=== PATIENT | female | born 1945 | race Caucasian/White ===

== ENCOUNTER 2020-04-21 10:03 | Emergency (ER) | payer MEDICARE, SELFPAY ==
[2020-04-21 10:30] VITALS: BP 173/81; PULSE 88; RESP 18; TEMP 36.5; O2SAT 95; BMI 37.2
--- NOTE | 2020-04-21 10:40 | XR_ITS ---
WS: [id number] Exam: XR hip LT 2-3V wo/w pel* [id number] Date/Time of Exam: 04/21/2020 10:40 AM Reason For Exam: hip pain s/p fall No acute fracture or dislocation. Mild degenerative change of the joint compartment. Normal soft tiss ues. XR/XR hip LT 2-3V wo/w pel* [id number] IMPRESSION: 1. No acute fracture or dislocation.
--- NOTE | 2020-04-21 10:40 | XR_ITS ---
WS: [id number] Exam: XR knee LT 3V* [id number] Date/Time of Exam: 04/21/2020 10:40 AM Reason For Exam: fall knee pain No acute fracture or dislocation. 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 Effusion in the suprapatellar bursa. XR/XR knee LT 3V* [id number] IMPRESSION: 1. No fracture or dislocation. 2. Moderately advanced DJD and large volume joint effusion.
--- NOTE | 2020-04-21 10:40 | XR_ITS ---
WS: [id number] Exam: XR ankle LT min 3V* [id number] Date/Time of Exam: 04/21/2020 10:40 AM Reason For Exam: left ankle pain s/p fall No acute fracture or dislocation. Degenerative change of the ankle mortise. Normal soft tissues. XR/XR ankle LT min 3V* [id number] IMPRESSION: 1. No acute fracture or dislocation. Degenerative changes.
--- NOTE | 2020-04-21 10:51 | ED_ITS ---
HPI - Extremity Problem General: Chief complaint: Extremity Injury, Lower Stated complaint: Left leg injury, Fall Time Seen by Provider: 04/21/20 10:33 Source: patient and family Mode of arrival: ambulatory Limitations: no limitations History of Present Illness: HPI Narrative: 75-year-old female patient presents to the emergency department via private auto, she reports was making the bed last night around 11 PM, states her left knee went out from under her she fell landing on her left knee in a bent position. States unable to bear weight on the left lower extremity, states pain is located in the left knee and left hip. She also reports pain in the left ankle. She denies headache or neck pain, did not hit her head or sustain other injuries. States was able to get back in bed with the assistance of her spouse. Of note patient reports low white blood count, recently relocated to the area from [place]. She reports her primary care provider completed work-up for h er decreased white blood count. She reports he could never find anything with the exception of urinary tract infection which was treated. MD Complaint: extremity pain Onset (ago): hour(s) (12) Pain Consistency: constant Location: left and lower extremity Severity scale (1-10): 6 Quality: aching and dull Radiation: proximal and distal Relieving factors: rest Exacerbating factors: range of motion, weight bearing and walking Associated symptoms: Reports no associated symptoms; Deny chest pain, fever(s) or rash Review of Systems General: Reports: 10 or more systems reviewed and unremarkable except in HPI and below Const: Denies: fever(s), chills or diaphoresis Eyes: Denies: blurry vision or eye redness ENMT: Denies: throat pain, dental pain or disequilibrium Card: Denies: chest pain, palpitations or irregular heart rhythm Resp: Denies: dyspnea, productive cough, non-productive cough or wheezing GI: Denies: abdominal pain, nausea or vomiting : Denies: difficulty voiding or dysuria Musc: Reports: extremity pain and joint pain; Denies: neck pain, back pain, muscle cramps or muscle weakness Skin/Breast: Denies: rash or pruritus Neuro: Denies: headache(s), weakness in extremities or behavioral changes Psych: Denies: anxiety or depression Eddie/Lymph: Denies: easy bruising PFS ED PFSH: Medical History (Updated 04/21/20 @ 16:00 by LORI Mcmahan Anxiety Diabetes HTN (hypertension) Leukopenia Physical Exam Const: COMMON NORMALS: no acute distress, average body habitus, patient oriented x3, healthy appearing, alert and well nourished EXAM LIMITATIONS: no altered mental status, no behavioral limitations and no physical limitations GENERAL APPEARANCE: cooperative, well kempt, well developed and well hydrated; not comfortable, not anxious and not ill appearing NUTRITIONAL APPEARANCE: obese ORIENTATION/CONSCIOUSNESS: Yes awake, Yes oriented to person, Yes oriented to place and Yes oriented to time HENMT: COMMON NORMALS: normocephalic, atraumatic, EAC's normal, TM's normal bilaterally, Normal external nose present and moist oral mucous membranes HEAD & SCALP: normal to inspection, normocephalic and atraumatic FACE & SINUS: normal facial exam and face symmetric NOSE: Normal external nose present and No nasal polyps present EXTERNAL AUDITORY CANAL: EAC's normal TYMPANIC MEMBRANE: TM's normal bilaterally MOUTH: Normal oral and palatal mucosa present, lip normal and tongue normal THROAT: posterior oropharynx normal Eye: COMMON NORMALS: Equal, round and reactive pupils present and EOMs intact bilaterally GENERAL EYE: appearance normal, both eyes and all related structu res PUPIL: Yes Equal, round and reactive pupils present Neck/C-Spine: COMMON NORMALS: full ROM and no lymphadenopathy GENERAL: Yes normal visual inspection and Yes trachea midline CERVICAL SPINE: Yes cervical ROM normal Lymph: LYMPHATIC: no lymphadenopathy noted Chest: COMMONS NORMALS: normal inspection of the chest and normal palpation of entire chest wall Resp: COMMON NORMALS: normal respiratory effort, No retractions, No use of accessory muscles and clear to auscultation bilaterally EFFORT & INSPECTION: Yes able to speak in complete sentences AUSCULTATION: clear to auscultation bilaterally Cardio: COMMON NORMALS: regular rhythm, S1 normal heart sound present, S2 n ormal heart sound present and Peripheral pulses 2+ throughout RHYTHM: regular rhythm HEART SOUNDS: S1 normal heart sound present and S2 normal heart sound present PERIPHERAL PULSES: Peripheral pulses 2+ throughout GI: COMMON NORMALS: Normal to inspection, nondistended, normoactive bowel sounds present, Soft to palpation and non-tender INSPECTION: Yes normal to inspection, No abdominal distension and Yes central obesity PALPATION: Yes Soft to palpation : COMMON NORMALS: Yes no CVA tenderness BLADDER/KIDNEY EXAM: Yes no CVA tenderness Back/Pelvis: COMMON NORMALS: no CVA tenderness, thoracic and lumbar spine normal to inspection, no thoracic nor lumbar tenderness and thoraco-lumbar ROM normal Extremity: COMMON NORMALS: normal to inspection and capillary refill normal GENERAL: Yes normal exam except as noted LEFT LOWER EXTREMITY: Yes hip joint Left hip: Yes inspection (Normal inspection), Yes palpation (Pain posterior anterior/lateral, pain with rotation, passive) and Yes neurovascular exam (Distally intact), Yes knee joint Left knee: Yes inspection (Edema noted, ecchymosis noted anterior lateral), Yes palpation (Pain with palpation), Yes ROM (Range of motion limited secondary to pain unable to flex or extend), Yes neurovascular exam (Distally intact) and Yes other (Knee is comfortable in a fl exed position.), Yes lower leg and Yes ankle joint Left ankle: Yes inspection (Slight edema noted laterally), Yes palpation (Pain laterally), Yes ROM (Limited flexion extension secondary to pain reproduced laterally) and Yes neurovascular exam (Distally intact) Neuro: COMMON NORMALS: patient oriented x3 and no focal motor deficits SENSORIUM/ORIENTATION: Yes alert, Yes oriented to person, Yes oriented to place and Yes oriented to time Psych: COMMON NORMALS: mental status grossly normal, Normal thought process present and cooperative APPEARANCE: Yes well kempt ACTIVITY/MOTOR BEHAVIOR: Yes appropriate eye contact THOUGHT PROCESS: Normal thought process present Skin: COMMON NORMALS: no rashes or lesions noted and turgor normal GENERAL SKIN EXAM: no rashes or lesions noted and turgor normal Course Vital Signs: Vital signs: Vital Signs Temperature 97.7 F 04/21/20 10:30 Pulse Rate 80 04/21/20 17:15 Respiratory Rate 16 04/21/20 17:15 Blood Pressure 177/78 04/21/20 17:15 Pulse Oximetry 95 04/21/20 17:15 MDM - Extremity (Nontraumatic) MDM Narrative: Medical decision making narrative: 75-year-old female patient presents to the emergency department with left knee pain and hip pain after sustaining a fall last p.m. at home. She is found to be leukopenic with neutropenia, previous history of this with work-up from her primary care physician in [place]. Recently moved to the area, has not established primary care provider at this time. Referral was placed to secondary social studies teacher for need for hematology and orthopedic follow-up. CT scan completed of the left knee and left hip due to patient's inability to stand. Physical therapy did come and evaluate the patient here in the ED was able to get the patient to ambulate with assistance of a walker. She will be referred to orthopedic services. Prescription for walker sent to HOME services with [facility]. Her son remained at bedside and is aware that leukopenia will cause increased risk for infection, advised to avoid contact with ill individuals. Verbalized understanding and agrees for hematology follow-up as well as orthopedic services. Dr. Bernardo was available for discussion of case with recommendation for hydrocodone. Lab Data: Labs: Lab Results 04/21/20 04/21/20 Range/Units 11:15 11:15 WBC 1.9 L (4.0-10.0) 10^3/ uL RBC 3.65 L (4.1-5.3) 10^6/u L Hgb 11.0 L (11.5-15.3) g/dL Hct 34.1 L (37.0-47.0) % MCV 93.4 (81-99) fL MCH 30.1 (28.0-34.0) pg MCHC 32.3 (30.0-36.0) g/dL RDW 17.3 H (12.1-15.1) % Plt Count 64 L (130-400) 10^3/c mm MPV 11.1 H (7.4-10.4) fL Neut % (Auto) 13.4 % Lymph % (Auto) 73.7 % [place] % (Auto) 11.8 % Eos % (Auto) 0.0 % Baso % (Auto) 0.0 % Neut # (Auto) 0.25 L* (1.8-7.7) 10^3/u L Lymph # (Auto) 1.4 (0.8-4.8) 10^3/u L [place] # (Auto) 0.2 (0.2-0.9) 10^3/u L Eos # (Auto) 0.0 (0.0-0.8) 10^3/u L Baso # (Auto) 0.0 (0.0-0.1) 10^3/u L Nucleated RBC % (a uto) 0 % Nucleated RBCs # 0.0 /100WBC Sodium 140 (136-145) mmol/L Potassium 4.0 (3.5-5.1) mmol/L Chloride 102 (98-107) mmol/L Carbon Dioxide 25 (22-29) mmol/L Anion Gap 17.0 (5-19) BUN 14 (8-23) mg/dL Creatinine 0.9 (0.5-0.9) mg/dL GFR Calculation Not Reportable Glucose 94 (65-115) mg/dL Calculated Osmolal ity 290 (285-295) mOsm/k g Calcium 9.4 (8.5-10.5) mg/dL Total Bilirubin 0.3 (0.15-1.2) mg/dL AST 21 (0-32) U/L ALT 15 (0-33) U/L Alkaline Phosphata se 91 (35-105) IU/L Total Protein 7.4 (6.6-8.7) g/dL Albumin 4.7 (3.5-5.2) g/dL Globulin 2.7 (1.3-4.6) g/dL Imaging Data^: Xray Ortho: Radiologist's impression: [address] [address] XRay Report Signed Patient: Susana Lucio Unit #: [id number] : 1945 Age/Sex: 75 / F ADM Date: 04/21/20 Loc: ER Room/Bed: Attending Dr: Ordering Provider/Ordering MD: Tiara Sanchez Date of Service: 04/21/20 Procedure(s): XR ankle LT min 3V* [id number] Accession Number(s): [id number] Report Number: [id number] WS: [id number] Exam: XR ankle LT min 3V* [id number] Date/Time of Exam: 04/21/2020 10:40 AM Reason For Exam: left ankle pain s/p fall No acute fracture or dislocation. Degenerative change of the ankle mortise. Normal soft tissues. XR/XR ankle LT min 3V* [id number] IMPRESSION: 1. No acute fracture or dislocation. Degenerative changes. Dictated By: Jarrett Meza DO Signed By: Jarrett Meza DO Signed Date/Time: 04/21/20 1113 DD/ 1113 Other Xray: Radiologist's impression: [place] [address] XRay Report Signed Patient: Susana Lucio Unit #: [id number] : 1945 Age/Sex: 75 / F ADM Date: 04/21/20 Loc: ER Room/Bed: Attending Dr: Ordering Provider/Ordering MD: Tiara Sanchez Date of Service: 04/21/20 Procedure(s): XR hip LT 2-3V wo/w pel* [id number] Accession Number(s): [id number] Report Number: [id number] WS: [id number] Exam: XR hip LT 2-3V wo/w pel* [id number] Date/Time of Exam: 04/21/2020 10:40 AM Reason For Exam: hip pain s/p fall No acute fracture or dislocation. Mild degenerative change of the joint compartment. Normal soft tissues. XR/XR hip LT 2-3V wo/w pel* [id number] IMPRESSION: 1. No acute fracture or dislocation. Dictated By: Jarrett Meza DO Signed By: Jarrett Meza DO Signed Date/Time: 04/21/20 1114 DD/ 1114 Other Imaging: Radiologist's impression: [facility] [address] [address] XRay Report Signed Patient: Susana Lucio Unit #: [id number] : 1945 Age/Sex: 75 / F ADM Date: 04/21/20 Loc: ER Room/Bed: Attending Dr: Ordering Provider/Ordering MD: Tiara Sanchez Date of Service: 04/21/20 Procedure(s): XR knee LT 3V* [id number] Accession Number(s): [id number] Report Number: [id number] WS: [id number] Exam: XR knee LT 3V* [id number] Date/Time of Exam: 04/21/2020 10:40 AM Reason For Exam: fall knee pain No acute fracture or dislocation. 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 Effusion in the suprapatellar bursa. XR/XR knee LT 3V* 28094 IMPRESSION: 1. No fracture or dislocation. 2. Moderately advanced DJD and large volume joint effusion. Dictated By: Jarrett Meza DO Signed By: Jarrett Meza DO Signed Date/Time: 04/21/201114 DD/ 13 Discharge Plan Discharge Patient Disposition: Home Clinical Impression: Contusion of hip Qualifiers: Encounter type: initial encounter Laterality: left Qualified Code(s): S70.02XA - Contusion of left hip, initial encounter Contusion of knee, left Qualifiers: Encounter type: initial encounter Qualified Code(s): S80.02XA - Contusion of left knee, initial encounter Fall Qualifiers: Encounter type: initial encounter Qualified Code(s): W19.XXXA - Unspecified fall, initial encounter Leukopenia Qualifiers: Leukopenia type: neutropenia Neutropenia type: unspecified Qualified Code(s): D70.9 - Neutropenia, unspecified Condition: Stable Prescriptions: New hydrocodone-acetaminophen 5-325 mg tablet 1 tab PO Q4H PRN (Reason: pain) Qty: 10 RF: 0 No Action losartan 50 mg Tablet 100 mg PO DAILY@1000 RF: 0 isosorbide mononitrate 60 mg Tablet Extended Release 24 Hr 60 mg PO DAILY@1000 RF: 0 pantoprazole 40 mg Tablet,Delayed Release (Dr/Ec) 40 mg PO DAILY@1000 RF: 0 gabapentin 300 mg Capsule 300 mg PO TID@10,14,19 RF: 0 fluoxetine 20 mg Capsule 40 mg PO DAILY RF: 0 cyclobenzaprine 10 mg Tablet 10 mg PO BID PRN (Reason: muscle spasms) RF: 0 metformin 500 mg Tablet 500 mg PO BID@1000,1900 RF: 0 tramadol 50 mg Tablet 50 mg PO BID PRN (Reason: Pain) RF: 0 diltiazem HCl 120 mg Tablet 240 mg PO DAILY@1900 RF: 0 lorazepam 1 mg Tablet 1 mg PO DAILY PRN (Reason: unknown) RF: 0 Discharge Orders: Discharge ED (Routine); Ordered 04/21/20 Ordered By: Tiara Sanchez Discharge Diet: Usual diet Discharge Activity: Limit activity as instructed Patient Instructions: How to Choose and Use a Walker (GEN), Hip Sprain (ED), Knee Pain (ED), Neutropenia (ED), Leg Sprain (ED), Knee Immobilizer (ED) Activity Restrictions/Additional Instructions: client services representative will be contacting you with an appointment with hematology due to low white blood count that was found on today's visit. You will need to stay isolated, stay away from ill individuals Return to the emergency department if you develop fever, shortness of breath or other concerning symptoms Utilize a walker and wheelchair as needed for knee and hip pain. 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
[2020-04-21] MEDS: promethazine 25 mg Tablet PO (11:21)
[2020-04-21 11:22] VITALS: RESP 18; O2SAT 96
[2020-04-21] MEDS: morphine 4 mg/mL SDV 1 mL IVP ×2 (11:22→12:19)
[2020-04-21 11:25] LABS: Hematocrit 34.1 % (37.0-47.0); Lymphocytes # 1.4 10^3/uL (0.8-4.8); Lymphocytes % 73.7 %; Mean Corpuscular HGB Conc 32.3 g/dL (30.0-36.0); Mean Corpuscular Hemoglobin 30.1 pg (28.0-34.0); Mean Corpuscular Volume 93.4 fL (81-99); Mean Platelet Volume 11.1 fL (7.4-10.4); Monocytes # 0.2 10^3/uL (0.2-0.9); Monocytes % 11.8 %; Neutrophils % 13.4 %; Nucleated Red Blood Cells % 0 %; Platelet Count 64 10^3/cmm (130-400); Positive C 1; Positive M 1; Red Blood Count 3.65 10^6/uL (4.1-5.3); Red Cell Distribution Width 17.3 % (12.1-15.1); White Blood Count 1.9 10^3/uL (4.0-10.0)
[2020-04-21 12:02] LABS: Alanine Aminotransferase 15 U/L (0-33); Albumin Level 4.7 g/dL (3.5-5.2); Alkaline Phosphatase 91 IU/L (35-105); Aspartate Amino Transferase 21 U/L (0-32); Blood Urea Nitrogen 14 mg/dL (8-23); Calcium 9.4 mg/dL (8.5-10.5); Carbon Dioxide 25 mmol/L (22-29); Chloride 102 mmol/L (98-107); Creatinine Clr Calc Pharmacy 68.4184; Globulin 2.7 g/dL (1.3-4.6); Glucose 94 mg/dL (65-115); Osmolality Calculated 290 mOsm/kg (285-295); Sodium 140 mmol/L (136-145); Total Bilirubin 0.3 mg/dL (0.15-1.2); Total Protein 7.4 g/dL (6.6-8.7)
--- NOTE | 2020-04-21 12:10 | CT_ITS ---
WS: [id number] CT LEFT HIP, NONCONTRAST HISTORY: hip pain s/p fall Technique: All CT scans at [facility] use at least one of these dose optimization techniq ues: automated exposure control; mA and/or kV adjustment per patient size (includes targeted exams wh ere dose is matched to clinical indication); or iterative reconstruction. DLP: 2018.82 mGy.cm COMPARISON: Radiographs 04/21/2020. No LEFT hip fracture is identified. No displacement or dislocation. Mild degenerative changes at the hip joint. Hypertrophic bone formation involving the acetabulum and greater trochanter. There is soft tissue injury and edema posterior to the hip. No soft tissue hematoma. Visualized pubic rami are int act. CT/CT hip LT wo con* 72863 IMPRESSION: No LEFT hip fracture.
--- NOTE | 2020-04-21 12:10 | CT_ITS ---
WS: [id number] CT LEFT KNEE NONCONTRAST. HISTORY: knee pain s/p fall Technique: All CT scans at [facility] use at least one of these dose optimization techniq ues: automated exposure control; mA and/or kV adjustment per patient size (includes targeted exams wh ere dose is matched to clinical indication); or iterative reconstruction. DLP: 732.51 mGy.cm COMPARISON: 04/21/2020 No acute fractures or dislocation. Moderate degenerative changes in the medial compartment. There is loss of normal joint space with sclerosis and osteophytosis. Osteophytes in all 3 compartments. No de finite fractures are identified. There is a large suprapatellar joint effusion CT/CT knee LT wo con* 48073 IMPRESSION: 1. Large suprapatellar joint effusion. 2. No acute fracture identified. 3. Moderate degenerative changes medial compartment.
[2020-04-21 12:13] LABS: Neutrophils # 0.25 10^3/uL (1.8-7.7)
[2020-04-21 12:19] VITALS: RESP 18; O2SAT 96
[2020-04-21] MEDS: alum-mag-hydroxide-sime 30 mL UDC PO (13:19)
[2020-04-21] MEDS: HYDROcodone-acetaminophen 5-325 mg Tablet 1 TAB PO (14:45)
[2020-04-21 14:47] VITALS: BP 186/80; PULSE 88; RESP 18; O2SAT 95
[2020-04-21] MEDS: famotidine 20 mg Tablet 40 MG PO (15:50)
[2020-04-21 17:15] VITALS: BP 177/78; PULSE 80; RESP 16; O2SAT 95
--- NOTE | 2020-04-22 09:32 | DCPLANNER ---
regional safety manager had message to schedule a follow up appointment for patient with ortho. regional safety manager called the ortho clinic, spoke with Kellen, gave clinic patients information. regional safety manager was told that patients information would be printed and reviewed. Clinic will call patient with appointment information. regional safety manager had message to refer patient to hematology, human services case manager called the facility coordinator, Avani Wilhelm, gave clinic patients information. regional safety manager was told that patients information would be printed and reviewed. Clinic will call patient with appointment information.
--- NOTE | 2020-04-25 11:08 | DCPLANNER ---
Patient has a follow up appointment scheduled for Tuesday, April 28, 2020 at 9:[address] Del Rosario. Clinic will call patient with appointment information.
--- NOTE | 2020-05-13 08:06 | DCPLANNER ---
Patient had a follow up appointment scheduled for Tuesday, April 28, [address] Del Rosario at [facility] - patient did attend appointment. assistant production manager also referred patient to the cancer treatment center, spoke with Avani, custom studio coordinator. assistant production manager was told that the clinic is trying to reach patient, has spoke with and left message for patient to return phone call. Patient has not called Avani back, she stated that she will keep trying to reach patient.
== END 2020-04-21 17:15 | disposition home or self-care (01) ==
PROVIDERS: Emergency Provider Nurse Practitioner Family
DX: S80.02XA Contusion of left knee, initial encounter (principal); S70.02XA Contusion of left hip, initial encounter; D70.9 Neutropenia, unspecified; Z79.84 Long term (current) use of oral hypoglycemic drugs; E11.9 Type 2 diabetes mellitus without complications; I10 Essential (primary) hypertension; W19.XXXA Unspecified fall, initial encounter
CPT/HCPCS: 12345; 29530; 73502; 73562; 73610; 73700; 80053; 85025; 97116; 97161; 99283; 99284; J2270; Q0169

== ENCOUNTER 2020-05-14 10:38 | Outpatient (CLI) | payer MEDICARE, SELFPAY ==
[2020-05-14 13:05] LABS: Basophils % 0.4 %; Hematocrit 27.9 % (37.0-47.0); Hemoglobin 8.9 g/dL (11.5-15.3); Lymphocytes # 1.1 10^3/uL (0.8-4.8); Lymphocytes % 46.3 %; Mean Corpuscular HGB Conc 31.9 g/dL (30.0-36.0); Mean Corpuscular Hemoglobin 30.5 pg (28.0-34.0); Mean Corpuscular Volume 95.5 fL (81-99); Monocytes # 1.1 10^3/uL (0.2-0.9); Monocytes % 44.2 %; Neutrophils % 8.7 %; Nucleated Red Blood Cells % 0 %; Platelet Count 44 10^3/cmm (130-400); Red Blood Count 2.92 10^6/uL (4.1-5.3); Red Cell Distribution Width 18.6 % (12.1-15.1); White Blood Count 2.4 10^3/uL (4.0-10.0)
[2020-05-14 13:14] LABS: LAB Peripheral Smear Sent for Review
[2020-05-14 13:22] LABS: Add Urine Culture? Yes; Add Urine Microscopic? YES; Bacteria Urine 2+ /hpf; Bilirubin Urine Neg (Negative); Blood Urine 2+ (Negative); Glucose Urine UA Norm (Normal); Ketones Urine Negative (Negative); Leukocyte Esterase Urine Negative (Negative); Nitrate Urine Negative (Negative); Protein Urine Trace (Negative); RBC Urine 0-4 /hpf (0-2); Squamous Epithelial Cell Urine 0-4 /hpf (0-5); Urine Appearance Clear (CLEAR); Urine Color Yellow (Yellow); Urobilinogen Urine Norm (Negative); pH Urine 5 (5-7)
[2020-05-14 13:31] LABS: Estmated Average Glucose 114; Hemoglobin A1C 5.6 % (4.0-6.0)
[2020-05-14 13:33] LABS: Neutrophils # 0.21 10^3/uL (1.8-7.7)
[2020-05-14 13:53] LABS: Erythrocyte Sedimentation Rate 19 mm/hr (0-15)
[2020-05-14 15:17] LABS: Alanine Aminotransferase 20 U/L (0-33); Albumin Level 3.7 g/dL (3.5-5.2); Alkaline Phosphatase 71 IU/L (35-105); Anion Gap 14.9 (5-19); Aspartate Amino Transferase 23 U/L (0-32); Blood Urea Nitrogen 16 mg/dL (8-23); Calcium 9.1 mg/dL (8.5-10.5); Carbon Dioxide 25 mmol/L (22-29); Chloride 103 mmol/L (98-107); Globulin 2.9 g/dL (1.3-4.6); Glucose 129 mg/dL (65-115); Lactate Dehydrogenase 388 U/L (135-214); Osmolality Calculated 291 mOsm/kg (285-295); Potassium 3.9 mmol/L (3.5-5.1); Sodium 139 mmol/L (136-145); Thyroid Stimulating Hormone 1.12 uIU/mL (0.27-4.20); Total Bilirubin 0.3 mg/dL (0.15-1.2); Total Protein 6.6 g/dL (6.6-8.7)
[2020-05-14 15:49] LABS: Iron 205 ug/dL (37-145); Total Iron Binding Capacity 241 mcg/dl; Unsaturated Iron Binding 36 ug/dL (112-347)
--- NOTE | 2020-05-14 19:49 | ONC CON_ITS ---
Dr. Gallego New Patient Note Patient: Susana Lucio Unit #: [id number]: 1945 Dicatated By: Wei Gallego M.D.Date of Visit: May 14, 2020 Onc MED New Patient/Consult Referring Physician: Tiara Sanchez A.P.N. Chief Complaint: Pancytopenia. History of Present Illness: This is a 75-year-old woman with pancytopenia and predominant neutropenia. She has multiple medical illnesses, including hypertension, hyperlipidemia, type 2 diabetes, peripheral neuropathy, and GERD. She has had frequent urinary tract infections and she also indicates that she had a light heart attack in 1984. She has additional history of systemic lupus erythematosus for which she has had steroid therapy intermittently for acute exacerbations. She moved here from [place] in February 2020, and most of the history we have available is from the patient and her son. She indicates that she had fallen at home 3 weeks ago, sustaining an injury to her left knee and leg. She was seen in the emergency room on 04/21/2020. There was no evidence of fracture, and she has been managed conservatively. Her CBC at that time showed hemoglobin slightly low at 11.0g with hematocrit 34.1%. White blood cell count was low at 1900 with diff showing 13% neutrophils, 73% lymphocytes, and 11% monocytes. Comprehensive metabolic profile was unremarkable. Since her fall she has been feeling very poorly, including severe weakness/fatigue and very poor appetite. She is ambulating short distances with a walker or with a wheel chair for support. Her ECOG score is 3. Her appetite has been poor. She has had weight loss in the range of 25 lbs she arriving here in February. She has not had fever, but she has had chills and some sweating. She has had symptoms of bladder infection including urinary frequency, burning, and dark urine. She says her breathing is good most of the time. She does not complain of cough. She has felt a little achy in her chest, and she has had some palpitations. She has had daily episodes of nausea and vomiting ever since her lap band procedure. Her bowel movements lately have been light, as she has not been eating much. She still has pain in her left leg, and she has some generalized joint pain. She has headache off and on. She has quite a bit of dizziness. She has numbness in her hands. She has a lot of bruising. She has no other bleeding manifestations. Past Medical History: Her medical history includes anxiety, depression, gastroesophageal reflux disease, hyperlipidemia, hypertension, peripheral neuropathy, systemic lupus erythematosus, and type II diabetes. She has a history of recurrent urinary tract infection, and a history of small heart attack in 1984. Past Surgical History: Her surgical/procedural history consists of lap band procedure in 2001, hysterectomy with bilateral salpingo-oophorectomy in 1988, exploratory laparotomy for tubal in 1969, and tubal ligation in 1969. Medications: Cyclobenzaprine HCl 1 (10 mg) Tablet Oral b.i.d., dilTIAZem HCl ER 1 (240 mg) Capsule SR 24 HR Oral daily, FLUoxetine HCl 1 (40 mg) Capsule Oral daily, HYDROcodone-Acetaminophen 1 (5-325 mg) Tablet Oral q 4 hours PRN, Isosorbide Mononitrate ER 1 (60 mg) Tablet SR 24 HR Oral daily, LORazepam 1 (1 mg) Tablet Oral daily PRN, Losartan Potassium 1 (100 mg) Tablet Oral daily, metFORMIN HCl 1 (500 mg) Tablet Oral b.i.d., Pantoprazole Sodium 1 (40 mg) Tablet, enteric coated Oral daily, traMADol HCl 1 (50 mg) Tablet Oral b.i.d. PRN Allergies: Sulfa Antibiotics and Zofran. Social History: Ms. Lucio is . She is a non-smoker. She has had only very rare alcohol use. Family History: She does not know anything about her father. Her mother in a motor vehicle accident. A brother of lung cancer. A sister of a brain tumor and another sister of heart disease. Review Of Symptoms: Constitutional - She has been feeling very lousy and weak for about 3 weeks. This occured after a fall. She is able to ambulate short distances using cane or wheelchair. Her appetite is poor and weight is down. No fevers. She has chills. No night sweats or hot flashes. ECOG score is 3, Eyes - No change in vision, ENMT - No hearing loss or tinnitus. No sinus congestion/drainage. No mouth sores. She has dryness to her mouth and throat. No sore throat or difficulty swallowing, Hematologic/Lymphatic - She bruises easily, Respiratory - No shortness of breath. No cough. No pleuritic pain or hemoptysis, Cardiovascular - No angina pain. She has occasional palpitations, Gastrointestinal - She has frequent almost daily nausea and vomiting, which has been occuring since she had lap band surgery. Her heartburn is adequately managed with pantoprazole. No diarrhea or constipation. No blood in the stool or black stools, Genitourinary (F) - She has history of recurrent urinary tract infections. She reports she feels she's had one for about 3 weeks. She has had dark urine and urinary frequency and burning. No incontinence, Musculoskeletal - She has pain in her left knee following a fall 3 weeks ago. She also has generalized joint aches, Integumentary - No skin eruption, Neurologic - She has headache off and on. She has dizziness/lightheadedness. She has numbness in her hands. No other focal neurologic symptoms, Psychiatric - Her anxiety/depression is adequately managed with fluoxetine. She does not sleep well. Vital Signs: Performed on May 14, 2020 11:17: 2, 33.45 (HIGH), 2.10 sq.m, 67.5 in, 100 %, 65 /min, 16 /min, 151/61 mm(hg) (HIGH), 97.6 F (LOW), and 216.8 lbs (HIGH). Physical Examination: Constitutional - She appears generally weak, Eyes - Sclerae nonicteric. Conjunctivae clear, ENMT - No lesions noted in the oral cavity, Neck - No mass or thyromegaly, Hematologic/Lymphatic - No cervical, clavicular, or axillary adenopathy, Respiratory - Lungs are clear with good air movement bilaterally, Cardiovascular - Heart rhythm is regular. There is a I/ systolic murmur. There is no gallop or rub noted, Abdomen - Soft and non-tender. Liver and spleen are not enlarged. There is no abdominal mass or ascites noted and there is no inguinal adenopathy, Back/Spine - No spine or CVA tenderness noted, Extremities - No edema. Dorsalis pedis pulses are palpable bilaterally, Integumentary - No rashes. No suspicious skin lesions noted, Neurologic - No focal neurologic deficits noted. Problem List: 1. Pancytopenia with predominant neutropenia. Etiology is uncertain. With a known history of lupus, it could be autoimmune mediated. The most likely cause, though, would be myelodysplastic syndrome or developing leukemia. 2. Hypertension. 3. Hyperlipidemia. 4. Type II diabetes. 5. Peripheral neuropathy. 6. Systemic lupus erythematosus. 7. GERD. 8. She had previous lap band procedure. 9. History of recurrent urinary tract infections. 10. History of light heart attack . 11. Anxiety/depression. Problems Addressed with this Encounter and Plan: 1. Pancytopenia with predominant neutropenia. Etiology is uncertain. With a known history of lupus, it could be autoimmune mediated. The most likely cause, though, would be myelodysplastic syndrome or developing leukemia. She is showing significant decline in performance status. The laboratory findings were reviewed with the patient and her son, and we discussed the clinical implications. She has pancytopenia with predominant and severe neutropenia. This potentially could be autoimmune, but I am more suspicious about the possibility of myelodysplastic syndrome or developing leukemia. She will have additional evaluation today including CBC, comprehensive metabolic profile, sed rate and CRP, JYOTHI screen and profile, LDH level, TSH level, B12 and folate levels, and serum iron studies. I also will check her hemoglobin A1c and I will review the blood smear. She will have further evaluation as indicated. I anticipate that she will require bone marrow aspiration/biopsy. 2. She has history of recurrent urinary tract infection and she currently has symptoms which are suspicious for urinary tract infection. Urinalysis and culture will be obtained today, but I will have her start empiric antibiotic coverage with ciprofloxacin 500 mg twice daily. 3. Systemic lupus erythematosus. Lab studies are being requested as above. She will have further evaluation as indicated. Signed By: Wei Gallego M.D. <<Signature on File>>
[2020-05-14 23:42] LABS: Vitamin B12 > 2000 pg/mL (232-1245)
[2020-05-15 05:48] LABS: Folate Level 7.9 ng/mL (4.8-37.3)
[2020-05-15 09:02] LABS: Uric Acid 7.6 mg/dL (2.4-5.7)
[2020-05-15 14:44] LABS: Anti-Nuclear Antibody Screen NEGATIVE (NEGATIVE)
[2020-05-15 15:18] LABS: Anti-Double Strand DNA AB <1 IU/mL; Jo-1 Antibody <1.0 NEG AI (<1.0 NEG); SM/RNP Antibodies <1.0 NEG AI (<1.0 NEG); SS-B/LA IGG <1.0 NEG AI (<1.0 NEG); Scleroderma Ab(Scl-70) Ab <1.0 NEG AI (<1.0 NEG); Ss-A/Ro Igg <1.0 NEG AI (<1.0 NEG)
== END 2020-05-14 10:39 | disposition home or self-care (01) ==
PROVIDERS: Internal Medicine Medical Oncology; Visit Provider Internal Medicine Hematology & Oncology
DX: D61.818 Other pancytopenia (principal); D70.9 Neutropenia, unspecified; E11.42 Type 2 diabetes mellitus with diabetic polyneuropathy; R35.0 Frequency of micturition; R30.9 Painful micturition, unspecified; M32.9 Systemic lupus erythematosus, unspecified; I10 Essential (primary) hypertension; E78.5 Hyperlipidemia, unspecified; K21.9 Gastro-esophageal reflux disease without esophagitis; F41.8 Other specified anxiety disorders; I25.2 Old myocardial infarction; Z87.440 Personal history of urinary (tract) infections; Z79.84 Long term (current) use of oral hypoglycemic drugs
CPT/HCPCS: 36415; 80053; 81001; 82607; 82746; 83036; 83540; 83550; 83615; 84443; 84550; 85025; 85651; 86038; 86141; 86225; 86235; 87077; 87086; 87186; 99205

== ENCOUNTER 2020-05-26 07:18 | Outpatient (CLI) | payer MEDICARE, SELFPAY ==
[2020-05-26] VITALS (10 sets, daily range): BP systolic 142–152; BP diastolic 66–78; PULSE 72–77; RESP 18; TEMP 36.6–37.3; O2SAT 94–99
[2020-05-26 09:13] LABS: Hematocrit 23.5 % (37.0-47.0); Hemoglobin 7.9 g/dL (11.5-15.3); Mean Corpuscular HGB Conc 33.6 g/dL (30.0-36.0); Mean Corpuscular Hemoglobin 31.5 pg (28.0-34.0); Mean Corpuscular Volume 93.6 fL (81-99); Platelet Count 32 10^3/cmm (130-400); Red Blood Count 2.51 10^6/uL (4.1-5.3); Red Cell Distribution Width 19.2 % (12.1-15.1)
[2020-05-26 09:49] LABS: Slide Review Slide Review Perform
[2020-05-26 09:56] LABS: Absolute Segmented Neutrophil 0.3 10/cmm (1.6-7.1); Band Neutrophils Absolute 0.1 10^3/cmm (0.0-1.2); Corrected White Blood Count 4.8 10^3/cmm (4.8-10.8); Eosinophils 0 %; Lymphocytes 75 %; Monocytes Absolute 0.4 10^3/cmm (0.1-0.6); Segmented Neutrophils 5 %; Total Cells Counted 100 (0-100)
[2020-05-26 09:57] LABS: Anisocytosis 1+; Giant Platelets Trace; Ovalocytes 1+; Platelet Estimate Decreased (Normal); Poikilocytosis 1+; Smudge Cells 1+
[2020-05-26 09:59] LABS: Absolute Neutrophil 0.4 10^3/cmm (1.4-6.5)
[2020-05-26 10:00] LABS: Blastocytes 4 % (0-0)
[2020-05-26] MEDS: sodium chloride 0.9% 250 ML 999 ML IV (13:00)
[2020-05-26] MEDS: diphenhydrAMINE 25 mg Capsule PO (13:22)
[2020-05-26] MEDS: FUROsemide 10 mg/mL SDV 2mL 20 MG IV (14:55)
[2020-05-26] MEDS: acetaminophen 325 mg Tablet 650 MG PO (14:55)
[2020-05-26] MEDS: metoclopramide 5 mg/mL SDV 2 mL 10 MG IV (15:35)
== END 2020-05-26 07:19 | disposition home or self-care (01) ==
LOC: ONCMED 17:06
PROVIDERS: Visit Provider Internal Medicine Hematology & Oncology
DX: D61.818 Other pancytopenia (principal); C92.00 Acute myeloblastic leukemia, not having achieved remission; D70.9 Neutropenia, unspecified; E11.9 Type 2 diabetes mellitus without complications; M32.9 Systemic lupus erythematosus, unspecified
CPT/HCPCS: 36430; 85007; 85025; 86850; 86900; 86920; 96374; J1940; J2765; J7050; P9040

== ENCOUNTER 2020-06-10 14:33 | Inpatient (IN) | payer MEDICARE, SELFPAY ==
[2020-06-10] VITALS (18 sets, daily range): BP systolic 130–203; BP diastolic 66–112; PULSE 66–95; RESP 16–24; TEMP 36.4–37.4; O2SAT 95–97; BMI 31.6
--- NOTE | 2020-06-10 14:52 | XR_ITS ---
WS: [id number] PORTABLE CHEST HISTORY: dyspnea COMPARISON: None available. Subsegmental area of atelectasis at the lingula. Otherwise lungs are clear. No pleural effusion or pn eumothorax. Cardiac size: Normal. Mediastinum/Aorta: Normal mediastinum. No osseous abnormality seen. XR/XR chest 1V portable [id number] IMPRESSION: Subsegmental lingular atelectasis.
--- NOTE | 2020-06-10 14:56 | ECG_ITS ---
[facility] Test Date: 2020-06-10 Pat Name: Susana Lucio Department: Room: Gender: Female Take Away Attendant: : 1945 Requested By: Syed Law Order Number: [id number] Patel MD: Arlene Goel M.D. Measurements Intervals [place] Rate: 80 P: 180 [place]: 207 QRS: -38 QRSD: 91 T: 17 QT: 445 QTc: 516 Interpretive Statements SINUS RHYTHM LEFT AXIS DEVIATION [QRS AXIS < -30] PROLONGED QT INTERVAL No previous ECG available for comparison Electronically Signed On 06-10-2020 17:41:56 CERTIFIED PERFORMANCE TECHNOLOGIST by Arlene Goel M.D. [id number]
--- NOTE | 2020-06-10 15:04 | W.ED.CHESTPA ---
HPI - Chest Pain General: Chief Complaint: Shortness of Breath/Dyspnea Stated Complaint: DIFF BREATHING Time Seen by Provider: 06/10/20 14:50 History of Present Illness: HPI narrative: The patient is a 75-year-old female with AML who comes to the ER complaining of few days of left-sided chest pressure associated with shortness of breath with any activity at all. She has taken nitroglycerin at home which helps it go away. She says she cannot literally move without having chest pain. When she is completely still and rested she has no chest pain including now in the ER but even transferring from the wheelchair to the bed gave her chest pain. She says she had a myocardial infarction years ago and the pain is identical. MD complaint: chest heaviness Pertinent past history: coronary artery disease and prior VT Onset: during exertion Pain location: substernal and left chest Pain radiation: none Severity: moderate Quality: heaviness Relieving factors: nitroglycerin Associated symptoms: Reports no associated symptoms and dyspnea; Deny abdominal pain or palpitations Review of Systems General: Reports: 10 or more systems reviewed and unremarkable except in HPI and below Const: Denies: fatigue Eyes: Denies: change in vision, blurry vision or eye redness ENMT: Denies: throat pain, swelling of lips/tongue, ear or mastoid pain or nasal congestion Card: Reports: chest pain; Denies: palpitations, irregular heart rhythm, edema, dyspnea on exertion or orthopnea Resp: Reports: dyspnea; Denies: productive cough or non-productive cough GI: Denies: abdominal pain, diarrhea or GI cramping : Denies: flank pain, difficulty voiding, urinary frequency or urinary urgency Musc: Denies: neck pain, back pain, extremity pain, joint pain, joint redness, limited range of motion or muscle weakness Skin/Breast: Denies: rash, pruritus, erythema, skin pain or skin tenderness Neuro: Denies: headache(s), numbness in extremities, weakness in extremities, sensory changes, difficulty walking, dizziness, confusion or Slurred speech present Psych: Denies: anxiety or depression Endo: Denies: polyuria All/Imm: Denies: urticaria, throat swelling or tongue swelling PFSH ED PFSH: Medical History (Updated 06/10/20 @ 20:21 by Dutch Keenan MD) AMI (acute mesenteric ischemia) AML (acute myeloblastic leukemia) Anxiety Diabetes GERD (gastroesophageal reflux disease) HTN (hypertension) Leukopenia SLE (systemic lupus erythematosus related syndrome) Surgical History H/O: hysterectomy Hx of laparoscopic gastric banding Family History Sister CAD (coronary artery disease) Grandfather CAD (coronary artery disease) Grandmother CAD (coronary artery disease) Social History Smoking and tobacco status: never smoked Alcohol intake: current Alcohol intake frequency: holidays/special occasions only Alcohol use comment: Sandra alexys Substance/Drug Use: never Lives independently: Yes Household members: spouse Marital status: Current occupational status: retired Physical Exam Const: COMMON NORMALS: no acute distress, average body habitus, patient oriented x3, no limitations, healthy appearing, alert and well nourished GENERAL APPEARANCE: cooperative, comfortable, well kempt and well developed ORIENTATION/CONSCIOUSNESS: Yes awake, Yes oriented to person, Yes oriented to place and Yes oriented to time HENMT: COMMON NORMALS: normocephalic, external ears normal and Normal external nose present HEAD & SCALP: normal to inspection and normocephalic NOSE: Normal external nose present EXTERNAL EAR: Yes external ears normal MOUTH: Normal oral and palatal mucosa present THROAT: posterior oropharynx normal Eye: COMMON NORMALS: Equal, round and reactive pupils present and EOMs intact bilaterally GENERAL EYE: appearance normal, both eyes and all related structures PUPIL: Yes Equal, round and reactive pupils present Neck/C-Spine: COMMON NORMALS: full ROM, no lymphadenopathy, no meningeal signs and no JVD GENERAL: Yes normal visual inspection Lymph: LYMPHATIC: no lymphadenopathy noted Chest: COMMONS NORMALS: normal inspection of the chest and normal palpation of entire chest wall Resp: COMMON NORMALS: normal respiratory effort, No retractions, No use of accessory muscles, clear to auscultation bilaterally and percussion normal EFFORT & INSPECTION: Yes able to speak in complete sentences AUSCULTATION: clear to auscultation bilaterally PERCUSSION: percussion normal Cardio: COMMON NORMALS: no JVD, regular rate, regular rhythm, S1 normal heart sound present, S2 normal heart sound present and Peripheral pulses 2+ throughout RATE: regular rate RHYTHM: regular rhythm HEART SOUNDS: S1 normal heart sound present and S2 normal heart sound present PERIPHERAL PULSES: Peripheral pulses 2+ throughout GI: COMMON NORMALS: Normal to inspection, nondistended, normoactive bowel sounds present, Soft to palpation, non-tender and no masses INSPECTION: Yes normal to inspection PALPATION: Yes Soft to palpation : COMMON NORMALS: Yes no CVA tenderness BLADDER/KIDNEY EXAM: Yes no CVA tenderness Back/Pelvis: COMMON NORMALS: no CVA tenderness, thoracic and lumbar spine normal to inspection, no thoracic nor lumbar tenderness and thoraco-lumbar ROM normal Extremity: COMMON NORMALS: normal to inspection, full ROM, capillary refill normal, no joint enlargement and no pedal edema GENERAL: Yes normal exam except as noted Neuro: COMMON NORMALS: patient oriented x3, CN's II-XII intact bilaterally, moves all extremities, no focal motor deficits, no sensory deficits noted and gait normal SENSORIUM/ORIENTATION: Yes alert, Yes oriented to person, Yes oriented to place and Yes oriented to time MENINGEAL SIGNS: Yes no meningeal signs Psych: COMMON NORMALS: mental status grossly normal, Normal thought process present, cooperative, normal affect and speech normal APPEARANCE: Yes well kempt ATTITUDE: Yes calm SPEECH: Yes normal speech THOUGHT PROCESS: Normal thought process present Skin: COMMON NORMALS: no rashes or lesions noted GENERAL SKIN EXAM: no rashes or lesions noted Course Vital Signs: Vital signs: Vital Signs Temperature 98.1 F 06/10/20 14:35 Pulse Rate 75 06/10/20 17:33 Respiratory Rate 23 H 06/10/20 17:33 Blood Pressure 171/71 06/10/20 17:33 Pulse Oximetry 95 06/10/20 17:33 MDM - Chest Pain MDM Narrative: Medical decision making narrative: The patient has a number of significant lab abnormalities. First her troponin is notably elevated and it is likely she is having an NSTEMI. This is complicated by her AML which makes her severely thrombocytopenic and anemic. Discussed with Dr. Garcia who recommends no intervention until the platelets are corrected. I ordered 4 units of platelets irradiated and 1 unit of PRBC also irradiated. Discussed with hospitalist Dr. Keenan who accepts for care to the floor. Also she has acute kidney injury which will be monitored on the floor. Discussed care with Dr. Gallego. Lab Data: Labs: Lab Results 06/10/20 06/10/20 06/10/20 Range/Units 15:28 15:28 15:28 WBC 14.9 H (4.0-10.0) 10^3/ uL RBC 2.64 L (4.1-5.3) 10^6/u L Hgb 7.8 L (11.5-15.3) g/dL Hct 24.4 L (37.0-47.0) % MCV 92.4 (81-99) fL MCH 29.5 (28.0-34.0) pg MCHC 32.0 (30.0-36.0) g/dL RDW 18.6 H (12.1-15.1) % Plt Count 14 L* (130-400) 10^3/c mm MPV Not Reportable Lymph % (Auto) Not Reportable [place] % (Auto) Not Reportable Neut # (Auto) Study Lead Lymph # (Auto) Not Reportable [place] # (Auto) Not Reportable Total Counted 100 (0-100) Atypical Lymphs % 41.0 H (0-5) % Absolute Neutrophi ls 0.9 L (1.4-6.5) 10^3/c mm Segmented Neutroph ils 6 % Abs Segm Neuts (Ma n) 0.9 L (1.6-7.1) 10/cmm Band Neutrophils 0.0 % Abs Band Neuts (Ma n) 0.0 (0.0-1.2) 10^3/c mm Lymphocytes (Manua l) 46 % Monocytes (Manual) 5.0 % Absolute Monocytes 0.7 H (0.1-0.6) 10^3/c mm Eosinophils (Manua l) 0 % Absolute Eosinophi ls 0.0 (0.0-0.7) 10^3/c mm Basophils (Manual) 0.0 % Absolute Basophils 0.0 (0.0-0.2) 10^3/c mm Blast Cells 2 H* (0-0) % Platelet Estimate Decreased L (Normal) Poikilocytosis Trace Anisocytosis Trace Ovalocytes 1+ H Schistocytes Trace D-Dimer >= 20.00 H (0-0.59) ug/mIFE U Sodium 138 (136-145) mmol/L Potassium 3.7 (3.5-5.1) mmol/L Chloride 101 (98-107) mmol/L Carbon Dioxide 22 (22-29) mmol/L Anion Gap 18.7 (5-19) BUN 18 (8-23) mg/dL Creatinine 1.7 H (0.5-0.9) mg/dL GFR Calculation Not Reportable Glucose 162 H (65-115) mg/dL Calculated Osmolal ity 291 (285-295) mOsm/k g Calcium 8.1 L (8.5-10.5) mg/dL Total Bilirubin 0.8 (0.15-1.2) mg/dL AST 55 H (0-32) U/L ALT 24 (0-33) U/L Alkaline Phosphata se 87 (35-105) IU/L Creatine Kinase (26-192) U/L Troponin T Baselin e (0-10) ng/L NT-Pro-B Natriuret Pep 6610 H (0-450) pg/mL Total Protein 6.8 (6.6-8.7) g/dL Albumin 3.8 (3.5-5.2) g/dL Globulin 3.0 (1.3-4.6) g/dL Blood Type Rho(D) Type Antibody Screen Crossmatch 06/10/20 06/10/20 06/10/20 Range/Units 15:28 15:28 15:28 WBC (4.0-10.0) 10^3/ uL RBC (4.1-5.3) 10^6/u L Hgb (11.5-15.3) g/dL Hct (37.0-47.0) % MCV (81-99) fL MCH (28.0-34.0) pg MCHC (30.0-36.0) g/dL RDW (12.1-15.1) % Plt Count (130-400) 10^3/c mm MPV Lymph % (Auto) [place] % (Auto) Neut # (Auto) Lymph # (Auto) [place] # (Auto) Total Counted (0-100) Atypical Lymphs % (0-5) % Absolute Neutrophi ls (1.4-6.5) 10^3/c mm Segmented Neutroph ils % Abs Segm Neuts (Ma n) (1.6-7.1) 10/cmm Band Neutrophils % Abs Band Neuts (Ma n) (0.0-1.2) 10^3/c mm Lymphocytes (Manua l) % Monocytes (Manual) % Absolute Monocytes (0.1-0.6) 10^3/c mm Eosinophils (Manua l) % Absolute Eosinophi ls (0.0-0.7) 10^3/c mm Basophils (Manual) % Absolute Basophils (0.0-0.2) 10^3/c mm Blast Cells (0-0) % Platelet Estimate (Normal) Poikilocytosis Anisocytosis Ovalocytes Schistocytes D-Dimer (0-0.59) ug/mIFE U Sodium (136-145) mmol/L Potassium (3.5-5.1) mmol/L Chloride (98-107) mmol/L Carbon Dioxide (22-29) mmol/L Anion Gap (5-19) BUN (8-23) mg/dL Creatinine (0.5-0.9) mg/dL GFR Calculation Glucose (65-115) mg/dL Calculated Osmolal ity (285-295) mOsm/k g Calcium (8.5-10.5) mg/dL Total Bilirubin (0.15-1.2) mg/dL AST (0-32) U/L ALT (0-33) U/L Alkaline Phosphata se (35-105) IU/L Creatine Kinase 51 (26-192) U/L Troponin T Baselin e 453 H* (0-10) ng/L NT-Pro-B Natriuret Pep (0-450) pg/mL Total Protein (6.6-8.7) g/dL Albumin (3.5-5.2) g/dL Globulin (1.3-4.6) g/dL Blood Type O Positive Rho(D) Type Positive Antibody Screen Negative Crossmatch See Detail Discharge Plan Discharge Patient Disposition: Admitted As Inpatient Admit Provider: Dutch Keenan Clinical Impression: Pancytopenia, NSTEMI (non-ST elevated myocardial infarction), KATERINA (acute kidney injury) Condition: Stable Coding Level of Care Code ED Records Analyst for Chg Fwd Exam Comprehensive
[2020-06-10 15:39] LABS: Hematocrit 24.4 % (37.0-47.0); Hemoglobin 7.8 g/dL (11.5-15.3); Mean Corpuscular Hemoglobin 29.5 pg (28.0-34.0); Mean Corpuscular Volume 92.4 fL (81-99); Red Blood Count 2.64 10^6/uL (4.1-5.3); Red Cell Distribution Width 18.6 % (12.1-15.1); White Blood Count 14.9 10^3/uL (4.0-10.0)
[2020-06-10] MEDS: aspirin 81 mg Chew Tablet 324 MG PO (15:42)
[2020-06-10 16:03] LABS: Alanine Aminotransferase 24 U/L (0-33); Albumin Level 3.8 g/dL (3.5-5.2); Alkaline Phosphatase 87 IU/L (35-105); Anion Gap 18.7 (5-19); Aspartate Amino Transferase 55 U/L (0-32); Blood Urea Nitrogen 18 mg/dL (8-23); Calcium 8.1 mg/dL (8.5-10.5); Carbon Dioxide 22 mmol/L (22-29); Chloride 101 mmol/L (98-107); Glucose 162 mg/dL (65-115); NT Pro B Type Natriuretic Pept 6610 pg/mL (0-450); Osmolality Calculated 291 mOsm/kg (285-295); Potassium 3.7 mmol/L (3.5-5.1); Sodium 138 mmol/L (136-145); Total Bilirubin 0.8 mg/dL (0.15-1.2); Total Protein 6.8 g/dL (6.6-8.7)
[2020-06-10 16:13] LABS: Troponin(5th) Baseline 453 ng/L (0-10)
[2020-06-10 16:15] LABS: Platelet Count 14 10^3/cmm (130-400)
[2020-06-10 16:16] LABS: Slide Review Slide Review Perform
[2020-06-10 16:17] LABS: Absolute Segmented Neutrophil 0.9 10/cmm (1.6-7.1); Eosinophils 0 %; Lymphocytes 46 %; Monocytes Absolute 0.7 10^3/cmm (0.1-0.6); Segmented Neutrophils 6 %; Total Cells Counted 100 (0-100)
[2020-06-10 16:20] LABS: Absolute Neutrophil 0.9 10^3/cmm (1.4-6.5); Blastocytes 2 % (0-0); Platelet Estimate Decreased (Normal)
[2020-06-10 16:21] LABS: Ovalocytes 1+
[2020-06-10 16:23] LABS: Schistocytes Trace
[2020-06-10 16:24] LABS: Anisocytosis Trace; Poikilocytosis Trace
[2020-06-10 16:56] LABS: D Dimer >= 20.00 ug/mIFEU (0-0.59)
--- NOTE | 2020-06-10 16:56 | ECG_ITS ---
[facility] Test Date: 2020-06-10 Pat Name: Susana Lucio Department: Room: ICU11 Gender: Female Supervising Fire Marshal: : 1945 Requested By: Syed Law Order Number: [id number] Amanda MD: Arlene Goel M.D. Measurements Intervals [place] Rate: 73 P: 71 [place]: 236 QRS: -39 QRSD: 91 T: 26 QT: 464 QTc: 512 Interpretive Statements SINUS RHYTHM WITH FIRST DEGREE AV BLOCK LEFT AXIS DEVIATION [QRS AXIS < -30] PROLONGED QT INTERVAL Compared to ECG 06/10/2020 15:14:55 First degree AV block now present Electronically Signed On 06-10-2020 21:49:48 CAR CLEANING SUPERVISOR by Arlene Goel M.D. [id number]
--- NOTE | 2020-06-10 17:07 | P.CONIM_ITS ---
Providers/Reason For Consult Consulting Physican/Specialty*: Robert Garcia MD/ Cardiology Reason for Consult*: NSTEMI Requesting Physcian: Dr Law Attending Physician: Dr Keenan History of Present Illness History of Present Illness 75-year-old lady with SLE, hypertension, diabetes, coronary artery disease, pancytopenia, recently diagnosed with AML following with Dr Gallego for initiation of treatment presented to ER with 3 days of chest pain and need for transfusion. According to the patient, she started noticing chest pain about 3 days ago. Any degree of physical exertion, makes her feel chest pain. It is substernal with radiation to the back. She also feels shortness of breath on exertion. At rest doesnot feel these symptoms. In ER noted to have pancytopenia with neutropenia, ANC 900, with 2% blasts, hemoglobin 7.8, platelets 14,000, with troponin elevated at 453. EKG without evidence of ischemia. She also has KATERINA with creatinine of 1.7. Review of Systems Const: Denies: fever(s), chills, body aches or malaise Eyes: Denies: change in vision or eye redness ENMT: Denies: throat pain, oral sores or ear or mastoid pain Card: Reports: chest pain; Denies: edema, pre-syncope or dyspnea on exertion Resp: Denies: dyspnea, productive cough, change in phlegm color or hemoptysis GI: Reports: vomiting and diarrhea (one episode today); Denies: abdominal pain, nausea, constipation, hematochezia or melena : Denies: flank pain, urinary frequency or hematuria Musc: Denies: back pain, joint swelling or joint redness Skin/Breast: Reports: sores (L lower lip); Denies: rash or new lesions Neuro: Denies: headache(s), numbness in extremities, weakness in extremities, dizziness, confusion or seizure-like activity Endo: Denies: polyuria or polydipsia Eddie/Lymph: Denies: easy bleeding or purpura All/Imm: Denies: urticaria, throat swelling or tongue swelling Meds/Allergies Home Medications and Allergies Home Medications Medication Instructions Recorded Confirmed Last Taken Type cyclobenzaprine 10 mg PO BID PRN 04/21/20 04/28/20 Unknown History diltiazem HCl 240 mg PO DAILY@1900 04/21/20 04/28/20 04/20/20 History fluoxetine 40 mg PO DAILY 04/21/20 04/28/20 04/20/20 History gabapentin 300 mg PO TID@10,14,19 04/21/20 04/28/20 04/20/20 History hydrocodone-acetaminophen 1 tab PO Q4H PRN #10 tab 04/21/20 04/28/20 Unknown Rx isosorbide mononitrate 60 mg PO DAILY@1000 04/21/20 04/28/20 04/20/20 History lorazepam 1 mg PO DAILY PRN 04/21/20 04/28/20 Unknown History losartan 100 mg PO DAILY@1000 04/21/20 04/28/20 04/20/20 History metformin 500 mg PO BID@1000,1900 04/21/20 04/28/20 04/20/20 History pantoprazole 40 mg PO DAILY@1000 04/21/20 04/28/20 04/20/20 History tramadol 50 mg PO BID PRN 04/21/20 04/28/20 Unknown History hydrocodone 5 mg-acetaminophen 325 1 tab PO Q4H PRN 7 Days #30 tab 04/28/20 04/28/20 Unknown Rx mg tablet Allergies Allergy/AdvReac Type Severity Reaction Status Date / Time ondansetron [From Zofran] Allergy Mild ADR-Itching Verified 04/28/20 09:08 Sulfa (Sulfonamide Allergy ALGY-Rash Verified 06/10/20 14:42 Antibiotics) PFSH Acute PFSH: Medical History AMI (acute mesenteric ischemia) AML (acute myeloblastic leukemia) Anxiety Diabetes GERD (gastroesophageal reflux disease) HTN (hypertension) Leukopenia SLE (systemic lupus erythematosus related syndrome) Surgical History H/O: hysterectomy Hx of laparoscopic gastric banding Family History Sister CAD (coronary artery disease) Grandfather CAD (coronary artery disease) Grandmother CAD (coronary artery disease) Social History Smoking and tobacco status: never smoked Alcohol intake: current Alcohol intake frequency: holidays/special occasions only Alcohol use comment: Sandra reardon Substance/Drug Use: never Lives independently: Yes Household members: spouse Marital status: Current occupational status: retired Vitals/I&O/Wt Last Vital Signs Temp 98.1 F 06/10/20 14:35 Pulse 76 06/10/20 14:42 Resp 18 06/10/20 14:42 BP 171/68 06/10/20 14:42 Pulse Ox 97 06/10/20 14:42 Weight last 48 hrs Weight 208 lb Physical Exam Const: COMMON NORMALS: no acute distress, patient oriented x3 and alert GENERAL APPEARANCE: cooperative ORIENTATION/CONSCIOUSNESS: Yes awake HENMT: COMMON NORMALS: oropharynx normal Neck/C-Spine: COMMON NORMALS: no JVD Resp: COMMON NORMALS: normal respiratory effort and clear to auscultation bilaterally AUSCULTATION: clear to auscultation bilaterally Cardio: COMMON NORMALS: no JVD, regular rhythm, S1 normal heart sound present, S2 normal heart sound present and No murmurs present (Cardio) RHYTHM: regular rhythm HEART SOUNDS: S1 normal heart sound present and S2 normal heart sound present GI: COMMON NORMALS: Normal to inspection, nondistended, normoactive bowel sounds present, Soft to palpation and non-tender PALPATION: Yes Soft to palpation Extremity: COMMON NORMALS: no joint enlargement and no pedal edema Neuro: COMMON NORMALS: patient oriented x3 and moves all extremities Skin: COMMON NORMALS: no rashes or lesions noted A&P Assessment and plan (1) NSTEMI (non-ST elevated myocardial infarction): Status: Acute (2) Pancytopenia: Status: Acute (3) KATERINA (acute kidney injury): Status: Acute (4) AML (acute myeloblastic leukemia): Status: Acute (5) Elevated d-dimer: Status: Acute (6) QT prolongation: Status: Acute Patient has a complex situation with pancytopenia, including platelet count of 14k, hgb of 7.8 in the setting of AML. She has presented with troponin elevation and typical chest pain consistent with NSTEMI. Standard treatment for NSTEMI with DAPT and anticoagulation will put her at significant risk of bleeding. I spoke with her oncolofist, Dr Gallego, and her thrombocytopenia will be an ongoing issue for now. Transfuse platelets and PRBCs. Hold off on anticoagulation for now If chest pain starts on rest, will initiate nitro gtt. Will manage conservatively for now, however if chest pain becomes persistent and occurs at rest with EKG changes, will plan on angiography once platelet count is above 30k. In case a stent is needed, will consider Bare metal stent to limit the duration of antiplatelet therapy. Trend troponins Order echocardiogram Thank you for involving us with care this patient. We will continue to follow. Please call with questions Coding Level of Care Code Acute Radio Frequency Technician for g Fwd Exam Comprehensive Diagnoses NSTEMI (non-ST elevated myocardial infarction) I21.4 Pancytopenia D61.818 KATERINA (acute kidney injury) N17.9 AML (acute myeloblastic leukemia) C92.00 Elevated d-dimer R79.89 QT prolongation R94.31
[2020-06-10 17:24] LABS: Creatine Phosphokinase 51 U/L (26-192)
[2020-06-10] MEDS: LORazepam 2 mg/mL INJ 1 mL 0.5 MG IVP (17:35)
[2020-06-10 17:55] LABS: Add Urine Microscopic? YES; Bilirubin Urine Neg (Negative); Blood Urine Trace (Negative); Glucose Urine UA Norm (Normal); Ketones Urine Negative (Negative); Leukocyte Esterase Urine Negative (Negative); Nitrate Urine Negative (Negative); Protein Urine 1+ (Negative); Urine Appearance Hazy (CLEAR); Urine Color Yellow (Yellow); Urobilinogen Urine 1 mg/dL (Negative); pH Urine 5 (5-7)
[2020-06-10 17:57] LABS: Troponin 5 2HR 399.4 ng/L (0-10)
[2020-06-10 18:14] LABS: Bacteria Urine 4+ /hpf; Squamous Epithelial Cell Urine 0-4 /hpf (0-5); WBC Urine 0-4 /hpf (0-5)
[2020-06-10 18:15] LABS: Add Urine Culture? Yes
--- NOTE | 2020-06-10 19:52 | P.HP_ITS ---
Providers/Chief Complaint Admitting Physician: Dutch Keenan Chief Complaint: DIFF BREATHING History of Present Illness Pleasant 75-year-old lady with SLE with pancytopenia, recently confirmed to be AML in the process of arrangements for treatment with Dr. Gallego presented to ER for assessment due to several days of left-sided chest pain and in anticipation of needing a blood transfusion. In ER noted to have pancytopenia with neutropenia, ANC 900, with 2% blasts, hemoglobin 7.8, platelets 14,000, with troponin elevated at 453, EKG with prolonged QT, QTC 516, but without obvious signs of ischemia. Her symptoms have been rather typical, triggered by even minimal exertion, improving with rest and nitroglycerin. On presentation noted blood pressure elevated in 170s/70s. BNP elevated at 6610. Chest x-ray with subsegmental lingular atelectasis. She is also noted to be in acute kidney injury with creatinine of 1.7, BUN 18. Minimal AST elevation 55. CK normal at 51. UA with 5-10 RBC, 0-4 WBC, 0-4 squamous cells, 4+ bacteria, 1 urobilinogen. She denies any headache, sore throat, nose, sneezing. Has had some vomiting and loose stool this morning. Notes he has developed an abrasion on the left side of her lower lip. Denies any dysphagia or odynophagia. Review of Systems Const: Denies: fever(s), chills, body aches or malaise Eyes: Denies: change in vision or eye redness ENMT: Denies: throat pain, oral sores or ear or mastoid pain Card: Reports: chest pain; Denies: edema, pre-syncope or dyspnea on exertion Resp: Denies: dyspnea, productive cough, change in phlegm color or hemoptysis GI: Reports: vomiting and diarrhea (one episode today); Denies: abdominal pain, nausea, constipation, hematochezia or melena : Denies: flank pain, urinary frequency or hematuria Musc: Denies: back pain, joint swelling or joint redness Skin/Breast: Reports: sores (L lower lip); Denies: rash or new lesions Neuro: Denies: headache(s), numbness in extremities, weakness in extremities, dizziness, confusion or seizure-like activity Endo: Denies: polyuria or polydipsia Eddie/Lymph: Denies: easy bleeding or purpura All/Imm: Denies: urticaria, throat swelling or tongue swelling Medications/Allergies Home Medications Medication Instructions Recorded Confirmed Last Taken Type cyclobenzaprine 10 mg PO BID PRN 04/21/20 04/28/20 Unknown History diltiazem HCl 240 mg PO DAILY@1900 04/21/20 04/28/20 04/20/20 History fluoxetine 40 mg PO DAILY 04/21/20 04/28/20 04/20/20 History gabapentin 300 mg PO TID@10,14,19 04/21/20 04/28/20 04/20/20 History hydrocodone-acetaminophen 1 tab PO Q4H PRN #10 tab 04/21/20 04/28/20 Unknown Rx isosorbide mononitrate 60 mg PO DAILY@1000 04/21/20 04/28/20 04/20/20 History lorazepam 1 mg PO DAILY PRN 04/21/20 04/28/20 Unknown History losartan 100 mg PO DAILY@1000 04/21/20 04/28/20 04/20/20 History metformin 500 mg PO BID@1000,1900 04/21/20 04/28/20 04/20/20 History pantoprazole 40 mg PO DAILY@1000 04/21/20 04/28/20 04/20/20 History tramadol 50 mg PO BID PRN 04/21/20 04/28/20 Unknown History hydrocodone 5 mg-acetaminophen 325 1 tab PO Q4H PRN 7 Days #30 tab 04/28/20 04/28/20 Unknown Rx mg tablet Allergies Allergy/AdvReac Type Severity Reaction Status Date / Time ondansetron [From Zofran] Allergy Mild ADR-Itching Verified 04/28/20 09:08 Sulfa (Sulfonamide Allergy ALGY-Rash Verified 06/10/20 14:42 Antibiotics) PFSH Acute PFSH: Medical History AMI (acute mesenteric ischemia) AML (acute myeloblastic leukemia) Anxiety Diabetes GERD (gastroesophageal reflux disease) HTN (hypertension) Leukopenia SLE (systemic lupus erythematosus related syndrome) Surgical History H/O: hysterectomy Hx of laparoscopic gastric banding Family History Sister CAD (coronary artery disease) Grandfather CAD (coronary artery disease) Grandmother CAD (coronary artery disease) Social History Smoking and tobacco status: never smoked Alcohol intake: current Alcohol intake frequency: holidays/special occasions on ly Alcohol use comment: [facility] Substance/Drug Use: never Lives independently: Yes Household members: spouse Marital status: Current occupational status: retired Vitals/I&O/Wt Last Vital Signs Temp 98.1 F 06/10/20 14:35 Pulse 75 06/10/20 17:33 Resp 23 H 06/10/20 17:33 BP 171/71 06/10/20 17:33 Pulse Ox 95 06/10/20 17:33 Weight last 48 hrs Weight 94.347 kg Physical Exam Const: COMMON NORMALS: no acute distress, patient oriented x3 and alert GENERAL APPEARANCE: cooperative ORIENTATION/CONSCIOUSNESS: Yes awake HENMT: COMMON NORMALS: oropharynx normal Neck/C-Spine: COMMON NORMALS: no JVD Resp: COMMON NORMALS: normal respiratory effort and clear to auscultation bilaterally AUSCULTATION: clear to auscultation bilaterally Cardio: COMMON NORMALS: no JVD, regular rhythm, S1 normal heart sound present, S2 normal heart sound present and No murmurs present (Cardio) RHYTHM: regular rhythm HEART SOUNDS: S1 normal heart sound present and S2 normal heart sound present GI: COMMON NORMALS: Normal to inspection, nondistended, normoactive bowel sounds present, Soft to palpation and non-tender PALPATION: Yes Soft to palpation Extremity: COMMON NORMALS: no joint enlargement and no pedal edema Neuro: COMMON NORMALS: patient oriented x3 and moves all extremities Skin: COMMON NORMALS: no rashes or lesions noted LESIONS: lesion noted (sore/excoriation on lower L lip) Data : 06/10/20 15:28 06/10/20 15:28 A&P Assessment and plan (1) NSTEMI (non-ST elevated myocardial infarction): Her difficult situation discussed extensively with ER physician, consultants as well as with her and her son. With noted non-STEMI, but in setting of pancytopenia, severe thrombocytopenia. So far she is received 224 mg of aspirin in ER. She is agreeable for platelet transfusion of 2 units. Prescription with hematology would target platelet level above 20,000, but not much higher above 30,000 unless there is bleeding. At target level at that point as per discussion with cardiology anticoagulation can be initiated. Would anticoagulate with heparin drip so it may be easily discontinued/reversed in case of any bleeding. She and her son are aware of increased risk of bleeding given pancytopenia, antiplatelet medication, anticoagulation. Discussed with nighttime ACADEMIC SUPPORT COORDINATOR, as well as overnight hospitalist. After she receives platelet transfusion, platelet level will be r echecked, and if in target range, heparin drip to be started. Recheck again with a level, hemoglobin in the morning. Given hemoglobin 7.8 in setting of acute cardiac ischemia also 1 unit of PRBC is requested. Add beta-handy. Statin. Assess TTE. Appreciate cardiology input. As per discussion with her son, difficulty comes also in additional risk stratification and in case of need of revascularization need for additional continue treatment with antiplatelet medications in the setting of pancytopenia, which would pose a difficulty. She will be reassessed by cardiology again, with further assessment treatment recommendations to be made depending on her condition. Added nitroglycerin as needed. In case of recurrence/persistent chest pain, consider nitroglycerin drip. Status: Acute (2) Pancytopenia: Secondary to AML. With history of SLE. 2 units leukoreduced irradiated platelets, 1 unit leukoreduced unit PRBC requested for transfusion. 2 additional units of platelets requested to be on hold given delay in obtaining these if needed urgently. Recheck response to platelet transfusion. Monitor for any bleeding. Target 20- 30,000 post platelet transfusion unless she starts bleeding in which case targets would change. Trace schistocytes noted on differential. Discussed with hematology. Maintain reverse isolation. Status: Acute (3) KATERINA (acute kidney injury): Creatinine up to 1.7. Baseline appears to be 1 or below. Unclear cause of this. Does take losartan at home. We will hold this medication. Avoid fluid challenge given elevated BNP, NSTEMI, some symptoms of dyspnea with concern for possible CHF. Assess renal ultrasound. Urine studies. Status: Acute (4) AML (acute myeloblastic leukemia): Recent diagnosis. Pending arrangements for chemotherapy with hematology. Status: Acute (5) Herpes labialis: Discussed with her treatment with acyclovir. Status: Acute (6) Elevated d-dimer: Anticoagulation as above once platelet level at target range if tolerating. Will request additional assessment with VQ scan. Lower extremity duplex ultrasound. Overall suspicion for PE is lower. Elevated D-dimer suspect is likely related to leukemia, non-STEMI. Assess fibrinogen level. Status: Acute (7) QT prolongation: Status: Acute Additional A&P Information Vomiting, loose stool: Reports episode of vomiting today, as well as loose stool. So far no recurrence of diarrhea. Monitor symptoms. Collect studies in case of recurrence. Minimal AST elevation: CK normal. Reassess. SLE HTN HLD DM2 Anxiety/depression Medications need to be reconciled. Attestations Medical Necessity Statement*: Admission of over 2 midnights is going to be needed for assessment and management of NSTEMI in the setting of pancytopenia, AML, acute kidney injury and additional comorbidities as above. Coding Level of Care Code Acute Detail Sergeant for [facility] Bo Diagnoses NSTEMI (non-ST elevated myocardial infarction) I21.4 Pancytopenia D61.818 KATERINA (acute kidney injury) N17.9 AML (acute myeloblastic leukemia) C92.00 Herpes labialis B00.1 Elevated d-dimer R79.89 QT prolongation R94.31
--- NOTE | 2020-06-10 20:56 | ECG_ITS ---
[facility] Test Date: 2020-06-10 Pat Name: Susana Lucio Department: Room: ICU11 Gender: Female Nuclear Weapons Custodian: : 1945 Requested By: Syed Law Order Number: [id number] Amanda MD: Arlene Goel M.D. Measurements Intervals [place] Rate: 73 P: 18 PA: 204 QRS: -42 QRSD: 90 T: 6 QT: 468 QTc: 519 Interpretive Statements SINUS RHYTHM MARKED LEFT AXIS DEVIATION [QRS AXIS < -30] PROLONGED QT INTERVAL Compared to ECG 06/10/2020 17:10:06 First degree AV block no longer present Electronically Signed On 06-10-2020 21:44:45 WELL SHOOTER by Arlene Goel M.D. [id number]
--- NOTE | 2020-06-10 21:30 | PC.NURSE ---
Admit Note Pt arrived from ER via gurney. Alert and oriented X 4. Breathing even and non-labored on room air. Blood transfusing on arrival to unit. Pt c/o chest pain rates /. Complains of headache 01/02. Pt placed in reverse isolation. Oriented to room and call light.
[2020-06-10 21:39] LABS: Troponin 5 6HR 385.7 ng/L (0-10)
[2020-06-10 22:24] LABS: Glucose Point of Care 114 mg/dL (70-110)
[2020-06-10] MEDS: metoclopramide 5 mg/mL SDV 2 mL IVP (22:50)
[2020-06-10] MEDS: metoprolol tartrate 25 mg Tablet PO (22:50)
[2020-06-10] MEDS: atorvastatin 40 mg Tablet PO (22:51)
[2020-06-10] MEDS: acetaminophen 325 mg Tablet 650 MG PO (22:51)
[2020-06-10] MEDS: acyclovir 500 MG in sodium chloride 0.9% (100 ml) 100 ML 110 MG IV (23:40)
[2020-06-10 23:56] LABS: Urine Creatinine 56 mg/dL (28-217); Urine Random Sodium 29 mmol/L
[2020-06-11] VITALS (20 sets, daily range): BP systolic 128–208; BP diastolic 56–114; PULSE 55–102; RESP 14–33; TEMP 36.4–37.6; O2SAT 92–96
--- NOTE | 2020-06-11 | PC.NURSE ---
Made NPO Preemptively for evaluation by cardiology in AM for possible cardiac cath.
[2020-06-11] MEDS: LORazepam 0.5 mg Tablet PO (00:02)
[2020-06-11] MEDS: oxyCODONE-APAP 10-325 mg Tablet 1 TAB PO (00:02)
[2020-06-11 01:33] LABS: Hematocrit 24.1 % (37.0-47.0); Hemoglobin 7.6 g/dL (11.5-15.3); Platelet Count 60 10^3/cmm (130-400)
--- NOTE | 2020-06-11 01:44 | PC.NURSE ---
Physician Notified For latest H&H and platelet results. Dr. Epstein gave verbal orders to hold off heparin gtt until hemoglobin is 8 or above, orders received to redraw H&H now.
[2020-06-11 02:01] LABS: Hematocrit 24.3 % (37.0-47.0); Hemoglobin 7.8 g/dL (11.5-15.3)
[2020-06-11] MEDS: heparin drip 25,000 UNIT/500 ML PREMIX 27 UNIT IV (03:22)
[2020-06-11] MEDS: heparin 5,000 unit/mL INJ 1 mL IV (03:23)
[2020-06-11 03:50] LABS: Fibrinogen 198 mg/dL (174-498); Partial Thromboplastin Time 32.3 SECONDS (23.9-36.7)
[2020-06-11 05:16] LABS: Hematocrit 23.2 % (37.0-47.0); Hemoglobin 7.7 g/dL (11.5-15.3); Mean Corpuscular HGB Conc 33.2 g/dL (30.0-36.0); Mean Corpuscular Hemoglobin 29.2 pg (28.0-34.0); Mean Corpuscular Volume 87.9 fL (81-99); Mean Platelet Volume 10.5 fL (7.4-10.4); Platelet Count 71 10^3/cmm (130-400); Red Blood Count 2.64 10^6/uL (4.1-5.3); Red Cell Distribution Width 18.3 % (12.1-15.1); White Blood Count 22.4 10^3/uL (4.0-10.0)
--- NOTE | 2020-06-11 07:00 | US_ITS ---
WS: [id number] RENAL ULTRASOUND HISTORY: KATERINA COMPARISON: None available. TECHNIQUE: 2-D and color Doppler imaging of the kidney submitted. Right kidney: 11.2 cm x 6.5 cm x 4.4 cm. Normal size kidney. Hypoechoic but solid-appearing mass in the upper pole of the RIGHT kidney measure s 1.4 x 1.8 x 2.3 cm. This mass may contain central calcification and there is increased vascularity. Left kidney: 12.0 cm x 5.8 cm x 4.2 cm. Normal echogenicity with no hydronephrosis or mass. Aorta: Normal. Urinary Bladder: Nondistended bladder. US/US renal BI* [id number] IMPRESSION: 1. No hydronephrosis. 2. Solid appearing mass in the RIGHT kidney measures 1.4 x 1.8 x 2.3 cm. Recom mend follow-up renal mass CT protocol for evaluation of a solid renal mass.
--- NOTE | 2020-06-11 07:00 | USCV_ITS ---
Khadijah Susana Age: 75 Gender: F : 1945 Exam Date: 06/11/2020 05:23 Ordering Phys: Dutch Keenan MD Technologist: Marybeth Johnson Exam Location: [facility] [place] Indication: BLE SWELLING HISTORY: Lower extremity swelling. PROCEDURES: Venous duplex imaging was performed in bilateral lower extremities. The following venous structures were evaluated: common femoral vein, profunda vein, proximal portion of the greater saphenous vein, superficial femoral vein, and the popliteal vein. In addition, the posterior tibial veins were evaluated. Serial compression, augmentation maneuvers, and spectral Doppler flow evaluation were performed. FINDINGS: Normal 2-D Doppler and augmentation and compressibility throughout the lower extremity venous structures. Additional imaging through the proximal calf veins also reveals no thrombus. Limited evaluation of the greater saphenous vein is patent with no thrombus. CONCLUSIONS No DVT bilateral lower extremities. Dr. Becky Ndiaye DO (Electronically Signed) Final Date: 11 June 2020 08:32 S
--- NOTE | 2020-06-11 07:00 | USCV_ITS ---
Susana Lucio Age: 75 Gender: F : 1945 Exam Date: 06/11/2020 05:51 Ordering Phys: Dutch Keenan MD Technologist: Olaf Herrera Exam Location: [facility] [place] Indication: SYNCOPE BP: 161 / 100 HR: 61 Rhythm: Sinus Technical Quality: POOR MEASUREMENTS (Male / Female) Normal Values 2D ECHO LV Diastolic Diameter PLAX 4.0 cm 4.2 - 5.9 / 3.9 - 5.3 cm LV Systolic Diameter PLAX 1.9 cm IVS Diastolic Thickness 1.5 cm 0.6 - 1.0 / 0.6 - 0.9 cm IVS Systolic Thickness 2.0 cm LVPW Diastolic Thickness 1.5 cm 0.6 - 1.0 / 0.6 - 0.9 cm LVPW Systolic Thickness 1.6 cm LVOT Diameter 2.0 cm LV Ejection Fraction 2D Teich 84.9 % LV Ejection Fraction MOD 2C 41.2 % LV Ejection Fraction 2C AL 46.9 % LA Diameter 3.9 cm LA Width 4.3 cm LA Height 5.1 cm RA Width 3.8 cm RA Height 5.5 cm Aorta at Sinotubular Diameter 2.2 cm M-MODE LV Diastolic Diameter MM 5.1 cm 4.2 - 5.9 / 3.9 - 5.3 cm LV Systolic Diameter MM 3.4 cm LV Ejection Fraction MM Teich 62.3 % IVS Diastolic Thickness MM 1.5 cm 0.6 - 1.0 / 0.6 - 0.9 cm IVS Systolic Thickness MM 2.3 cm LVPW Diastolic Thickness MM 2.1 cm 0.6 - 1.0 / 0.6 - 0.9 cm LVPW Systolic Thickness MM 2.4 cm RV Diastolic Diameter MM 0.7 cm Aortic Annulus Diameter 3.3 cm LA Ao Ratio MM 1.2 MV E Point Septal Separation 0.8 cm DOPPLER AV Peak Velocity 148.7 cm/s LVOT Peak Velocity 99.0 cm/s AV Area Cont Eq vti 2.3 cm squared AV Area Cont Eq pk 2.1 cm squared MV Area PHT 5.0 cm squared Mitral E to A Ratio 1.2 MV E' Velocity 56.5 cm/s Mitral E to MV E' Ratio 13.7 Mitral E to LV E' Lateral Ratio 21.1 Mitral E to LV E' Septal Ratio 10.2 TR Peak Velocity 291.0 cm/s TR Peak Gradient 33.9 mmHg TV Peak E Velocity 94.0 cm/s Right Atrial Pressure 3.0 mmHg Pulmonary Artery Systolic Pressu 36.9 mmHg PV Peak Velocity 84.0 cm/s FINDINGS Left Ventricle Normal left ventricular cavity size. Normal left ventricular systolic function. No regional wall motion abnormalities. Left ventricular ejection fraction is estimated at 55 %. Grade I/IV diastolic dysfunction (abnormal relaxation filling pattern), normal to mildly elevated filling pressures. Right Ventricle The right ventricle is normal in size and function. Right Atrium The right atrium is normal in size. Left Atrium The left atrium is normal in size. Mitral Valve Moderately thickened mitral valve. Moderate mitral annular calcification. No mitral valve stenosis. Trace mitral valve regurgitation. Aortic Valve Structurally normal aortic valve without significant sclerosis or stenosis. There is no aortic regurgitation. Tricuspid Valve Thickened tricuspid valve. Mild tricuspid valve regurgitation. Pulmonic Valve Structurally normal pulmonic valve without significant stenosis. There is no pulmonic regurgitation. Pericardium Normal pericardium without effusion. Aorta Normal ascending aorta dimension. CONCLUSIONS 1-Normal left ventricular cavity size. Normal left ventricular systolic function. No regional wall motion abnormalities. Left ventricular ejection fraction is estimated at 55 %. Grade I/IV diastolic dysfunction (abnormal relaxation filling pattern), normal to mildly elevated filling pressures. 2-Moderately thickened mitral valve. Moderate mitral annular calcification. No mitral valve stenosis. Trace mitral valve regurgitation. 3-Structurally normal aortic valve without significant sclerosis or stenosis. There is no aortic regurgitation. 4-Thickened tricuspid valve. Mild tricuspid valve regurgitation. 5-There is no pericardial effusion. 6-Right atrial pressure is around 5 mm of mercury. 7-There are no prior echocardiogram studies to compare. Geeta Dos Santos MD (Electronically Signed) Final Date: 11 June 2020 16:45 S
[2020-06-11 07:16] LABS: Alanine Aminotransferase 25 U/L (0-33); Albumin Level 3.5 g/dL (3.5-5.2); Alkaline Phosphatase 84 IU/L (35-105); Anion Gap 18.4 (5-19); Aspartate Amino Transferase 61 U/L (0-32); Blood Urea Nitrogen 22 mg/dL (8-23); Calcium 8.1 mg/dL (8.5-10.5); Carbon Dioxide 23 mmol/L (22-29); Chloride 102 mmol/L (98-107); Globulin 2.8 g/dL (1.3-4.6); Glucose 89 mg/dL (65-115); Osmolality Calculated 293 mOsm/kg (285-295); Potassium 3.4 mmol/L (3.5-5.1); Sodium 140 mmol/L (136-145); Total Bilirubin 0.7 mg/dL (0.15-1.2); Total Protein 6.3 g/dL (6.6-8.7)
[2020-06-11 07:30] LABS: Slide Review Slide Review Perform
[2020-06-11 07:31] LABS: Total Cells Counted 100 (0-100)
[2020-06-11 07:32] LABS: Absolute Segmented Neutrophil 0.2 10/cmm (1.6-7.1); Eosinophils 0 %; Lymphocytes 48 %; Monocytes Absolute 0.7 10^3/cmm (0.1-0.6); Segmented Neutrophils 1 %
[2020-06-11 07:37] LABS: Platelet Estimate Decreased (Normal)
[2020-06-11 07:39] LABS: Absolute Neutrophil 0.2 10^3/cmm (1.4-6.5); Blastocytes 32 % (0-0)
[2020-06-11 07:40] LABS: Poikilocytosis 1+; Schistocytes 1+
--- NOTE | 2020-06-11 09:28 | PC.CHAP ---
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 [] Patient/Family/Request visit [] Outpatient visit [] Follow-up visit [] Physician referral [] Code/Alert [x] Routine visit [] Staff referral [] Actively dying [] Patient sleeping [] Family support [] [] Out of room [] Palliative care [] [] Receiving care in room [] Pre-surgical visit [] Trauma [] Long length of stay [x] ICU visit [] Other: Relational/Emotional Strength [] Patient feels connected with others/family/visitors/staff [] Distress [] Loneliness/isolation [] Abandonment Spirituality of Patient [] Person of Kami [] Attends Sikhism of their Kami [] Believes in Prayer [] Reads Bible or Judaism materials [] There are Spiritual issues to be addressed 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 Automatic Interventions [x] Prayer [] Active listening [] Non-anxious presence [] Spiritual/emotional support [] Crisis/trauma care [] Spiritual counseling [] Bereavement support [] Provided bereavement packet [] Provided Bible/devotional materials [] Provided toy/stuffed animal, coloring book to patient or family member [] Provided Communion [] Anointing/[place]urora [] Salvation [x] Completed spiritual assessment [] Other: Impact on Illness or Injury [] Angry [] Fearful [] Anxious [] Often cries [] Exhaustion [] Unable to work [] Unable to attend islam [] Unable to walk/stand [] Unable to read [] Unable to drive [] Unable to eat/drink [] Unable to sleep [] Unable to be with family [] Patient intubated [] Other: Summary Time spent with patient
[2020-06-11] MEDS: isosorbide mononitrate ER 60 mg Tablet PO (10:11)
[2020-06-11] MEDS: pantoprazole DR 40 mg Tablet PO (10:11)
[2020-06-11] MEDS: metoprolol tartrate 25 mg Tablet PO ×2 (10:11→19:54)
--- NOTE | 2020-06-11 10:18 | P.PN_ITS ---
Subjective Subjective: Interval history: Patient is feeling better but still has significant chest discomfort on exertion. Received platelet transfusion and platelet count is 71k today. Vitals/I&O/Wt Last Vital Signs Temp 97.6 F 06/10/20 23:27 Pulse 56 L 06/11/20 06:14 Resp 18 06/11/20 04:00 BP 151/61 06/11/20 04:00 Pulse Ox 94 06/11/20 04:00 06/10/20 06/11/20 06/11/20 22:59 06:59 14:59 Intake Total 240 / 240 856 / 1096 Output Total 350 / 350 Balance 240 / 240 506 / 746 Weight last 48 hrs Weight 210 lb 8 oz Weight 208 lb Physical Exam Const: COMMON NORMALS: no acute distress, patient oriented x3 and alert G ENERAL APPEARANCE: cooperative ORIENTATION/CONSCIOUSNESS: Yes awake HENMT: COMMON NORMALS: oropharynx normal Neck/C-Spine: COMMON NORMALS: no JVD Resp: COMMON NORMALS: normal respiratory effort and clear to auscultation bilaterally AUSCULTATION: clear to auscultation bilaterally Cardio: COMMON NORMALS: no JVD, regular rhythm, S1 normal heart sound present, S2 normal heart sound present and No murmurs present (Cardio) RHYTHM: regular rhythm HEART SOUNDS: S1 normal heart sound present and S2 normal heart sound present GI: COMMON NORMALS: Normal to inspection, nondistended, normoactive bowel sounds present, Soft to palpation and non-tender PALPATION: Yes Soft to palpation Extremity: COMMON NORMALS: no joint enlargement and no pedal edema Neuro: COMMON NORMALS: patient oriented x3 and moves all extremities Skin: COMMON NORMALS: no rashes or lesions noted Data : 06/11/20 16:58 06/11/20 04:38 A&P Assessment and plan (1) NSTEMI (non-ST elevated myocardial infarction): Status: Acute (2) Pancytopenia: Status: Acute (3) KATERINA (acute kidney injury): Status: Acute (4) AML (acute myeloblastic leukemia): Status: Acute (5) Elevated d-dimer: Status: Acute (6) QT prolongation: Status: Acute Patient had presented with NSTEMI and pancytopenia. Post transfusion platelet counts have improved significantly. Increase in out of proportion to the amount transfused. Repeat cbc Continue anticoagulation. Continue aspirin and statin. Hold off on plavix D dimer elevated. Obtain V/q scan ECHO shows normal LV systolic function. If chest pain continues,and PE is ruled out, can consider performing diagnostic angiography to assess CAD extent Thank you for involving us with care this patient. We will continue to follow. Please call with questions Attestations Medical Necessity Statement*: Care expected to cross 2 midnights Coding Level of Care Code Acute Supervisor Modern Languages for [facility] Diagnoses NSTEMI (non-ST elevated myocardial infarction) I21.4 Pancytopenia D61.818 KATERINA (acute kidney injury) N17.9 AML (acute myeloblastic leukemia) C92.00 Elevated d-dimer R79.89 QT prolongation R94.31
[2020-06-11 10:52] LABS: Partial Thromboplastin Time 184.7 SECONDS (23.9-36.7)
--- NOTE | 2020-06-11 11:01 | P.PN_ITS ---
Subjective Subjective: Interval history: Feels better. Chest discomfort better, though perhaps not entirely resolved. No fever chills. Denies any headache, dizziness, vision changes. Denies any m outh pain, trouble swallowing. No recurrence of nausea vomiting or diarrhea. Vitals/I&O/Wt Last Vital Signs Temp 97.6 F 06/10/20 23:27 Pulse 62 06/11/20 10:00 Resp 16 06/11/20 10:00 BP 130/63 06/11/20 10:00 Pulse Ox 96 06/11/20 10:00 06/10/20 06/11/20 06/11/20 22:59 06:59 14:59 Intake Total 240 / 240 856 / 1096 350 / 350 Output Total 350 / 350 200 / 200 Balance 240 / 240 506 / 746 150 / 150 Weight last 48 hrs Weight 95.481 kg Weight 94.347 kg Physical Exam Const: COMMON NORMALS: no acute distress, patient oriented x3 and alert GENERAL APPEARANCE: cooperative and comfortable ORIENTATION/CONSCIOUSNESS: Yes awake HENMT: COMMON NORMALS: oropharynx normal Neck/C-Spine: COMMON NORMALS: no JVD Resp: COMMON NORMALS: normal respiratory effort and clear to auscultation bilaterally AUSCULTATION: clear to auscultation bilaterally Cardio: COMMON NORMALS: no JVD, regular rhythm, S1 normal heart sound present, S2 normal heart sound present and No murmurs present (Cardio) RHYTHM: regular rhythm HEART SOUNDS: S1 normal heart sound present and S2 normal heart sound present GI: COMMON NORMALS: Normal to inspection, nondistended, normoactive bowel sounds present, Soft to palpation and non-tender PALPATION: Yes Soft to palpation Extremity: COMMON NORMALS: no joint enlargement and no pedal edema Neuro: COMMON NORMALS: patient oriented x3 and moves all extremities SENSORIUM/ORIENTATION: Yes alert Skin: COMMON NORMALS: no rashes or lesions noted GENERAL SKIN EXAM: no rashes or lesions noted LESIONS: lesion noted (minimal sore/excoriation on lower L lip, better) Data : 06/11/20 04:38 06/11/20 04:38 A&P Assessment and plan (1) NSTEMI (non-ST elevated myocardial infarction): Assessment by VBritni today. As discussed with her and her son. Discussed with cardiology as well, they would like to see the results first before making additional decisions regarding coronary angiography. Platelet level responded to transfusion, up to 71,000 this morning. Unclear whether the rapid increase was secondary to some laboratory variation, versus some inflammatory spots, or some preadmission pulmonary suppression due to other causes. Will reassess again tonight. Discussed with cardiology, at this time we will continue anticoagulation, aspirin. Hold Plavix. Continue beta-handy, statin. Assess TTE. Appreciate cardiology input. As per discussion with her son, difficulty comes also in additional risk stratification and in case of need of revascularization need for additional continue treatment with antiplatelet medications in the setting of pancytopenia, which would pose a difficulty. She will be reassessed by cardiology again, with further assessment treatment recommendations to be made depending on her condition. Added nitroglycerin as needed. In case of recurrence/persistent chest pain, co nsider nitroglycerin drip. Status: Acute (2) Pancytopenia: Secondary to AML. With history of SLE. 2 units leukoreduced irradiated platelets, 1 unit leukoreduced unit PRBC requested for transfusion. 2 additional units of platelets requested to be on hold given delay in obtaining these if needed urgently. Recheck response to platelet transfusion. Monitor for any bleeding. Target 20- 30,000 post platelet transfusion unless she starts bleeding in which case targets would change. Trace schistocytes noted on differential. Discussed with hematology. Maintain reverse isolation. Status: Acute (3) Renal mass: Incidentally noted on US R kidney, 1.4 x 1.8 by [address] Status: Acute (4) KATERINA (acute kidney injury): Creatinine up to 1.8. Baseline appears to be 1 or below. Unclear cause of this. Does take losartan at home. We will hold this medication. No hydronephrosis. Noted possible solid mass in the right kidney. Avoid fluid challenge given elevated BNP, NSTEMI, some symptoms of dyspnea with concern for possible CHF. Prerenal urine studies. Possibly CHF. Status: Acute (5) AML (acute myeloblastic leukemia): Recent diagnosis. Pending arrangements for chemotherapy with hematology. Status: Acute (6) Herpes labialis: Acyclovir. Status: Acute (7) Elevated d-dimer: VQ Anticoagulation as above once platelet level at target range if tolerating. Lower extremity duplex ultrasound. Overall suspicion for PE is lower. Elevated D-dimer suspect is likely related to leukemia, non-STEMI. Fibrinogen level ok. Status: Acute (8) QT prolongation: Status: Acute Additional A&P Information Vomiting, loose stool: Resolved. no sample to collect. Minimal AST elevation: Minimal rise to 66. No abdo pain. CK normal. Reassess. SLE HTN HLD DM2 Anxiety/depression Medications need to be reconciled. Attestations Medical Necessity Statement*: Continue admission for assessment of NSTEMI in the setting of AML, pancytopenia, acute kidney injury, possible renal mass. Coding Level of Care Code Acute Quality Assurance/R&D Lab Technician for [facility] Diagnoses NSTEMI (non-ST elevated myocardial infarction) I21.4 Pancytopenia D61.818 Renal mass N28.89 KATERINA (acute kidney injury) N17.9 AML (acute myeloblastic leukemia) C92.00 Herpes labialis B00.1 Elevated d-dimer R79.89 QT prolongation R94.31
--- NOTE | 2020-06-11 11:09 | CT_ITS ---
WS: [id number] CT ABDOMEN AND PELVIS NONCONTRAST HISTORY: renal mass protocol -possible renal mass TECHNIQUE: Imaging performed through the abdomen and pelvis. Coronal and sagittal reformats are submi tted. All CT scans at [facility] use at least one of these dose optimization techniques: automated exposure control; mA and/or kV adjustment per patient size (includes targeted exams where d ose is matched to clinical indication); or iterative reconstruction. DLP: 1617.52 mGy.cm COMPARISON: Renal ultrasound 06/11/2020. Lower thorax: Mild groundglass attenuation at the lung bases, RIGHT greater than LEFT. Heart is sligh tly increased in size. Liver: Normal size liver. No mass or bile duct dilatation. Gallbladder: Prior cholecystectomy. Pancreas: Normal size and attenuation. Normal pancreatic duct. No pancreatitis or mass. Spleen: Normal. Adrenal glands: Normal. No mass. Right kidney: Normal size kidney. Mild perinephric stranding. Slight change in density of the RIGHT k idney corresponds to the mass seen by renal ultrasound. This study isn't adequate to evaluate for a s olid renal mass without IV contrast. No obstruction. Left kidney: Normal size kidney with no mass or hydronephrosis. Aorta: Mild atherosclerosis abdominal aorta with no aneurysm. No free fluid, intraperitoneal air or significant lymphadenopathy. GI tract: Normal appendix. No GI tract obstruction or diverticulosis. Prior gastric bypass. Abdominal wall: Small injection sites are noted within the anterior abdominal wall. There is mild dif fuse anasarca. Pelvis: Minimally distended urinary bladder. No free fluid or adenopathy in the pelvis. Prior hystere ctomy. 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 CT/CT kidney stone 24148 IMPRESSION: 1. Noncontrast CT of the kidneys is not adequate to further evaluate the renal mass seen by ultrasound. If the patient is unable to receive IV contrast recom mend follow-up renal ultrasound in 3-4 months. 2. Prior gastric bypass. 3. Prior cholecystectomy and hysterectomy. 4. Mild soft tissue anasarca.
[2020-06-11 11:47] LABS: Partial Thromboplastin Time 139.2 SECONDS (23.9-36.7)
[2020-06-11] MEDS: metoclopramide 5 mg/mL SDV 2 mL IVP (13:33)
[2020-06-11] MEDS: acyclovir 500 MG in sodium chloride 0.9% (100 ml) 100 ML 110 MG IV ×2 (16:57→23:18)
[2020-06-11 17:20] LABS: Basophils # 0.1 10^3/uL (0.0-0.1); Basophils % 0.3 %; Hematocrit 26.6 % (37.0-47.0); Hemoglobin 8.7 g/dL (11.5-15.3); Lymphocytes # 5.4 10^3/uL (0.8-4.8); Lymphocytes % 25.9 %; Mean Corpuscular HGB Conc 32.7 g/dL (30.0-36.0); Mean Corpuscular Hemoglobin 28.9 pg (28.0-34.0); Mean Corpuscular Volume 88.4 fL (81-99); Mean Platelet Volume 10.7 fL (7.4-10.4); Monocytes # 14.3 10^3/uL (0.2-0.9); Monocytes % 68.9 %; Neutrophils % 2.9 %; Nucleated Red Blood Cells # 0.2 /100WBC; Nucleated Red Blood Cells % 0.7 %; Platelet Count 48 10^3/cmm (130-400); Red Blood Count 3.01 10^6/uL (4.1-5.3); Red Cell Distribution Width 19.2 % (12.1-15.1); White Blood Count 20.7 10^3/uL (4.0-10.0)
[2020-06-11 17:24] LABS: Partial Thromboplastin Time 66.9 SECONDS (23.9-36.7)
[2020-06-11 18:36] LABS: Slide Review Slide Review Perform
--- NOTE | 2020-06-11 19:38 | PC.NURSE ---
Patient received from ICU report given by TANIYA Zelaya. Patient arrived by wheelchair. Able to ambulate to bed with moderate contact assist. Patient reports feeling week still . Patient requesting something to help with sleep. Current blood pressure 208/84. Informed Dr Epstein and doctor placed orders for one time Hydralazine and one time Ambien.
[2020-06-11] MEDS: atorvastatin 40 mg Tablet PO (19:54)
[2020-06-11] MEDS: hyDRALAzine 20 mg/mL INJ 1 mL 10 MG IVP (19:54)
--- NOTE | 2020-06-11 21:34 | NM_ITS ---
WS: [id number] NUCLEAR MEDICINE VENTILATION/PERFUSION LUNG SCAN HISTORY: dyspnea, chest pain, abnormal ddimer COMPARISON: 06/10/2020 chest radiograph. TECHNIQUE: Ventilation: 20.0 mCi of Technetium 99 DTPA aerosol inhaled. Perfusion: 4.7 mCi of technetium 99m MAA IV. Deposition of radionuclide centrally with heterogeneous distribution throughout the remaining lungs a nd the ventilatory portion. Matched defect superior LEFT upper lobe. There are no unmatched defects. NM/NM pul vent and perfus* 17448 IMPRESSION: Low probability pulmonary embolism.
--- NOTE | 2020-06-11 21:47 | PC.NURSE ---
Patient reports large episode of urinary incontinence. Assisted patient up to BSC. Performed complete linen change. Bath wipes used. Brief provided. Gown changed. Observed mottling to from hips to include bilateral lower extremities. Patient reports feeling weak.
[2020-06-11] MEDS: heparin drip 25,000 UNIT/500 ML PREMIX 21 UNIT IV (23:18)
--- NOTE | 2020-06-11 23:44 | PC.NURSE ---
Patient current blood pressure is 201/114. Informed Dr Epstein and doctor placed order for Labeltol 10mg IVP one time.
[2020-06-11] MEDS: labetalol 5 mg/mL SDV 20mL 10 MG IVP (23:47)
[2020-06-11 23:54] LABS: Partial Thromboplastin Time 63.7 SECONDS (23.9-36.7)
[2020-06-12] VITALS (58 sets, daily range): BP systolic 129–194; BP diastolic 54–117; PULSE 72–102; RESP 16–32; TEMP 36.4–36.8; O2SAT 93–98
--- NOTE | 2020-06-12 00:40 | PC.NURSE ---
Patient is reporting excessive thirst tonight. She is also have issues with incontinence requiring total linen changes. Patient current blood pressure in 191/85. Labetol 10mg IVP was administered at 2347. She is also reporting feeling very stressed and nervous . Patient has lorazepam 1mg PO daily prn on her home med list. Informed Dr Epstein was informed and received telephone order for Lorazepam 1mg PO now. RBVO
[2020-06-12] MEDS: LORazepam 1 mg Tablet PO (00:51)
--- NOTE | 2020-06-12 04:15 | PC.NURSE ---
Patient found to have a large spell of incontinence. Changed linens and gown. Used bath wipes on patient. Patient expressed thanks. Urine is developing strong odor that is worsening with each spell of incontinence.
[2020-06-12 05:37] LABS: Glucose Point of Care 136 mg/dL (70-110)
--- NOTE | 2020-06-12 05:40 | PC.NURSE ---
Patient continues with frequent spells of urine incontinence. Patient up in room with clothes off, telemetry removed and was attempting to remove IV. IV remain intact, flushes and draws well. Wrapped arm around IV access lightly with coban. Patient appears some confused. Instructed patient to use call light and showed her how to use it. States, I feel bad when I have to have help. Patient is very upset due the frequent urination and excessive thirst. Urine odor becoming very strong. Cleaned patient with comfort bath wipes, changed gown and complete linen change. Patient removed arm id band and blood band. Replaced ID arm band. Patient requested to sit up in chair. Placed call light within reach.
[2020-06-12 06:30] LABS: Basophils # 0.1 10^3/uL (0.0-0.1); Basophils % 0.4 %; Eosinophils % 0.1 %; Hematocrit 25.4 % (37.0-47.0); Hemoglobin 8.5 g/dL (11.5-15.3); Lymphocytes # 6.8 10^3/uL (0.8-4.8); Lymphocytes % 26.5 %; Mean Corpuscular HGB Conc 33.5 g/dL (30.0-36.0); Mean Corpuscular Hemoglobin 29.1 pg (28.0-34.0); Monocytes # 17.8 10^3/uL (0.2-0.9); Monocytes % 69.5 %; Neutrophils % 1.7 %; Nucleated Red Blood Cells # 0.2 /100WBC; Nucleated Red Blood Cells % 0.8 %; Platelet Count 44 10^3/cmm (130-400); Red Blood Count 2.92 10^6/uL (4.1-5.3); Red Cell Distribution Width 18.8 % (12.1-15.1); White Blood Count 25.6 10^3/uL (4.0-10.0)
[2020-06-12 06:52] LABS: Alanine Aminotransferase 31 U/L (0-33); Albumin Level 3.6 g/dL (3.5-5.2); Alkaline Phosphatase 118 IU/L (35-105); Anion Gap 17.1 (5-19); Aspartate Amino Transferase 68 U/L (0-32); Blood Urea Nitrogen 21 mg/dL (8-23); Calcium 8.4 mg/dL (8.5-10.5); Carbon Dioxide 23 mmol/L (22-29); Chloride 99 mmol/L (98-107); Globulin 3.1 g/dL (1.3-4.6); Glucose 112 mg/dL (65-115); Osmolality Calculated 286 mOsm/kg (285-295); Potassium 3.1 mmol/L (3.5-5.1); Sodium 136 mmol/L (136-145); Total Bilirubin 0.5 mg/dL (0.15-1.2); Total Protein 6.7 g/dL (6.6-8.7)
[2020-06-12 06:53] LABS: Neutrophils # 0.44 10^3/uL (1.8-7.7)
[2020-06-12 06:54] LABS: Slide Review Slide Review Perform
[2020-06-12 06:55] LABS: Partial Thromboplastin Time 74.9 SECONDS (23.9-36.7)
[2020-06-12] MEDS: metoprolol tartrate 25 mg Tablet PO ×2 (08:17→20:08)
[2020-06-12] MEDS: isosorbide mononitrate ER 60 mg Tablet PO (08:17)
[2020-06-12] MEDS: pantoprazole DR 40 mg Tablet PO (08:17)
--- NOTE | 2020-06-12 08:18 | PC.NURSE ---
meds early pts request
--- NOTE | 2020-06-12 09:55 | PM.PN ---
Subjective Subjective: Interval history: Patient is doing well. Chest pain has improved. Underwent coronary angiogram today that showed moderate LAD stenosis but no significant disease Vitals/I&O/Wt Last Vital Signs Temp 97.9 F 06/12/20 07:20 Pulse 95 06/12/20 07:20 Resp 16 06/12/20 07:20 BP 186/84 06/12/20 07:20 Pulse Ox 95 06/12/20 07:20 06/11/20 06/12/20 06/12/20 22:59 06:59 14:59 Intake Total 1190.0 / 1760.0 965.75 / 2725.75 267 / 267 Output Total 500 / 700 Balance 690.0 / 1060.0 965.75 / 2025.75 267 / 267 Weight last 48 hrs Weight 218 lb 8 oz Weight 219 lb 11.2 oz Weight 210 lb 8 oz Weight 208 lb Physical Exam Const: COMMON NORMALS: no acute distress, patient oriented x3 and alert GENERAL APPEARANCE: cooperative ORIENTATION/CONSCIOUSNESS: Yes awake HENMT: COMMON NORMALS: oropharynx normal Neck/C-Spine: COMMON NORMALS: no JVD Resp: COMMON NORMALS: normal respiratory effort and clear to auscultation bilaterally AUSCULTATION: clear to auscultation bilaterally Cardio: COMMON NORMALS: no JVD, regular rhythm, S1 normal heart sound present, S2 normal heart sound present and No murmurs present (Cardio) RHYTHM: regular rhythm HEART SOUNDS: S1 normal heart sound present and S2 normal heart sound present GI: COMMON NORMALS: Normal to inspection, nondistended, normoactive bowel sounds present, Soft to palpation and non-tender PALPATION: Yes Soft to palpation Extremity: COMMON NORMALS: no joint enlargement and no pedal edema Neuro: COMMON NORMALS: patient oriented x3 and moves all extremities Skin: COMMON NORMALS: no rashes or lesions noted Data : 06/13/20 03:38 06/13/20 03:38 Micro: Microbiology 06/10/20 17:20 Urine Culture - Preliminary Urine,Clean Catch Gram Negative Rods A&P Assessment and plan (1) NSTEMI (non-ST elevated myocardial infarction): Status: Acute (2) Pancytopenia: Status: Acute (3) KATERINA (acute kidney injury): Status: Acute (4) AML (acute myeloblastic leukemia): Status: Acute (5) Elevated d-dimer: Status: Acute (6) QT prolongation: Status: Acute Patient had presented with NSTEMI and pancytopenia. Underwent coronary angiography today that showed moderate mid LAD stenosis, no severe disease. Medical management for now. Have started IV fluids as patient had contrast for angiography Blood pressure is elevated. Have added amlodipine 10mg daily. Closely monior Uptitrate Imdur as tolerated. VQ scan low probability for PE. ECHO shows normal LV systolic function. Thank you for involving us with care this patient. We will continue to follow. Please call with questions Attestations Medical Necessity Statement*: Care expected to cross 2 midnights. Coding Level of Care Code Acute Children'S Nursery Assistant for [facility] Diagnoses NSTEMI (non-ST elevated myocardial infarction) I21.4 Pancytopenia D61.818 KATERINA (acute kidney injury) N17.9 AML (acute myeloblastic leukemia) C92.00 Elevated d-dimer R79.89 QT prolongation R94.31
[2020-06-12] MEDS: sodium chloride 0.9% 1,000 ML 50 ML IV (10:40)
[2020-06-12] MEDS: amlodipine 10 mg Tablet PO (10:41)
[2020-06-12] MEDS: diphenhydrAMINE 50 mg Capsule PO (10:41)
[2020-06-12] MEDS: acyclovir 500 MG in sodium chloride 0.9% (100 ml) 100 ML 110 MG IV ×2 (12:37→23:37)
[2020-06-12 14:41] LABS: Partial Thromboplastin Time 84.6 SECONDS (23.9-36.7)
[2020-06-12] MEDS: acetaminophen 325 mg Tablet 650 MG PO (14:46)
--- NOTE | 2020-06-12 15:00 | XACV_ITS ---
Exam Room: [facility] Ht: 173 cm Wt: 95 kg BSA: 2.17 m2 Gender: Female : 1945 Any Known Allergies: Sulfa Exam Priority: Routine Procedure(s): Procedure Description: Diagnostic procedure Procedure Description: Coronary Angiography Diagnostic Cath Status: Urgent Diagnostic Findings * LM has mild luminal irregularities. * CX has no significant stenosis. * RCA has mild luminal irregularities. * dLAD: Moderate 50% stenosis, RAHEEL: 3 flow. * Coronary angiography shows right dominance. Conclusions 1. There is moderate mid to distal LAD stenosis. Recommendations * Continue current medical management and risk factor modification. Interventional RX Recommendation: medical therapy and/or counseling Diagnostic RX Recommendation: medical therapy and/or counseling Anticoagulation: Heparin Clinical Evaluation EBL: 5mL-10mL Procedural Details Procedure Consent Obtained. Pre-Procedure Time Out. Identified patient by full name and date of as verbalized by the patient/guarantor. Does the consent match the physician's order: Yes. Accurate & Complete Informed Consent: Yes. Inpatient/Outpatient History & Physical on Chart: Yes. If H&P is completed, is and addenduem needed: No; If yes, is the addendum complete: N/A. Visualize and Verify Site with Patient/Guarantor: N/A. Relevant Radiology Images available: Yes. Pre-op teaching completed and patient verbalized understanding. The risks, benefits, and alternatives of sedation and/or procedure were discussed by physician. The patient agrees to continue. Procedure started. [facility] Clinical Fraility Score: 4: Vulnerable. Office Helper Indications: Suspected CAD. Chest Pain Symptom Assessment: Typical Angina Symptoms. Cardiovascular Instability: No. Correct patient, site and procedure confirmed by cath team. Current diagnosis: Chest Pain. PERRLA. Strong, equal hand tool room lathe operator bilaterally. Lungs clear x 5 lobes. IV Site on Arrival: 20 gauge in the right anticubital. IV Fluids: 0.9% NaCl at KVO. 0 mL infused prior to oven laborer. Pre Procedural Pulses: bilateral dorsalis pedis was 2+. Pre Procedural Pulses: bilateral posterior tibial was 2+. Pre Procedural Pulses: bilateral radial was 3+. Oxygen started at 2liters/min via nasal canula. bilateral groins was prepped with chloroprep then draped in the usual sterile fashion. right radial was prepped with chloroprep then draped in the usual sterile fashion. Physician notified. Physician arrived. Equipment: 6F - Radial. EDAN Manifold Kit Model BT 2000. Cardiac Cath Pack. Heparinized Saline (2 units/mL), 1000 mL bag. Baseline sample Acquired. HR: 77 BPM. Physician scrubbed in. Immediate Pre-Procedure Time Out. Correct Patient: Yes; Correct Procedure: Yes; Correct Site: Yes; Correct Patient Position: Yes; Correct Supplies: Yes; Dried Flammable Prep: Yes; Blood Products Available: No;. Lidocaine 1% infiltrated to the right radial. Arterial access obtained. A 6 equatorial guinean TIG catheter in over wire. Multiple views taken of left coronary artery. Catheter redirected to the RCA. Multiple views taken of right coronary artery. Catheter removed. TR band placed. Hemostasis obtained. A TR Band was successful obtaining hemostatsis at the Right Radial artery insertion site. Post Procedure: Pulses reassessed and unchanged. PERRLA. Strong, equal hand tool room lathe operator bilaterally. No VTE prophylaxis required. Medication's Wasted: Lidocaine 1% = 18 mL. Medication's Wasted: Heparin = 3500 units. Total IV fluids: 63.2 mL. Medication's Wasted: Nitro = 49.8 mg. Contrast type used: Omnipaque 300 mgI/mL, 500 mL bottle. Post-op diagnosis: Normal Coronaries. Complications: None. Estimated blood loss: 5mL-10mL. Procedure completed. Patient transferred by bed to 1st floor. Vital chart was stopped. Access Site Site: Right Radial artery Sheath Size: 6 Fr Hemostasis Method: TR Band Hemostasis Success: Successful Procedure Medications Start: 3:09 PM Stop: 3:09 PM Medication: Versed Amount: 1 mg Route: I.V. Start: 3:09 PM Stop: 3:09 PM Medication: Fentanyl Amount: 50 mcg Route: I.V. Start: 3:16 PM Stop: 3:16 PM Medication: Versed 1 mg and Fentanyl 25 mcg Amount: 1 Start: 3:18 PM Stop: 3:18 PM Medication: Nitrogylcerin Amount: 200 mcg Route: I.A. Start: 3:19 PM Stop: 3:19 PM Medication: Versed Amount: 1 mg Route: I.V. Start: 3:20 PM Stop: 3:20 PM Medication: Heparin Amount: 2500 units Route: I.V. Start: 3:22 PM Stop: 3:22 PM Medication: Versed 1 mg and Fentanyl 25 mcg Amount: 1 Route: I.V. I, the attending physician, have reviewed and verified all procedure medications. Yes, all medications given per verbal order History/Risk Factors Hypertension: Yes Dyslipidemia: No Peripheral Arterial Disease (PAD): No Myocardial Infarction (WA): No Obesity: Yes Renal Disease: No Prior Interventions PCI: No CABG: No Valve Surgery: No Report Signatures Finalized by Robert Garcia MD on 06/14/2020 01:37 PM
--- NOTE | 2020-06-12 15:11 | W.PM.OPSUD ---
Surgery/Procedure H&P Update DATE OF PROCEDURE: June 12, 2020 DATE H&P PERFORMED: 06/10/20 H&P UPDATE INFORMATION: I have reviewed H&P completed within last 30 days, I have examined patient prior to procedure and Changes to prior documentation as noted here CHANGES TO PREVIOUS DOCUMENTATION: Patient had presented with NSTEMI and pancytopenia. She has AML. Plan for coronary angiography. Complex history with AML and persistently dropping blood counts requiring multiple transfusions. Plan discussed with patient and her family. They are in agreement. PREOP DIAGNOSIS: NSTEMI PRIMARY INDICATION FOR PROCEDURE: STEMI PLANNED PROCEDURE: Coronary angiography/left heart cath/ possible percutaneous coronary intervention PATIENT REASSESSED PRIOR TO SEDATION, WITH NO CHANGE NOTED: Yes PHYSICAL EXAM: alert, oriented x 3 and clear to auscultation bilaterally AIRWAY EVAL/ANESTHESIA PLAN: ASA III, Risks, benefits & alternatives of sedation and/or procedure discussed and Patient agrees to continue as planned
[2020-06-12] MEDS: sodium chloride 0.9% 1,000 ML 100 ML IV (18:11)
[2020-06-12] MEDS: atorvastatin 40 mg Tablet PO (20:08)
[2020-06-12] MEDS: temazepam 15 mg Capsule PO (20:21)
--- NOTE | 2020-06-12 20:42 | P.PN_ITS ---
Subjective Subjective: Interval history: Overnight was hypertensive, this morning is bothered by headache. Having a little nausea. Denies chest pain. Appetite is not very good. Vitals/I&O/Wt Last Vital Signs Temp 97.6 F 06/12/20 16:40 Pulse 87 06/12/20 19:30 Resp 21 H 06/12/20 19:30 BP 159/78 06/12/20 19:30 Pulse Ox 98 06/12/20 19:30 06/12/20 06/12/20 06/12/20 06:59 14:59 22:59 Intake Total 965.75 / 2725.75 267 / 267 763.766 / 1030.766 Balance 965.75 / 5.75 267 / 267 763.766 / 1030.766 Weight last 48 hrs Weight 99.11 kg Weight 99.654 kg Weight 95.481 kg Physical Exam Const: COMMON NORMALS: no acute distress, patient oriented x3 and alert ORIENTATION/CONSCIOUSNESS: Yes awake OTHER: Malaise with headache, nausea HENMT: COMMON NORMALS: oropharynx normal Neck/C-Spine: COMMON NORMALS: no JVD Resp: COMMON NORMALS: normal respiratory effort and clear to auscultation bilaterally AUSCULTATION: clear to auscultation bilaterally Cardio: COMMON NORMALS: no JVD, regular rhythm, S1 normal heart sound present, S2 normal heart sound present and No murmurs present (Cardio) RHYTHM: regular rhythm HEART SOUNDS: S1 normal heart sound present and S2 normal heart sound present GI: COMMON NORMALS: Normal to inspection, nondistended, normoactive bowel sounds present, Soft to palpation and non-tender PALPATION: Yes Soft to palpation Extremity: COMMON NORMALS: no joint enlargement and no pedal edema Neuro: COMMON NORMALS: patient oriented x3 and moves all extremities SENSOR IUM/ORIENTATION: Yes alert Skin: COMMON NORMALS: no rashes or lesions noted GENERAL SKIN EXAM: no rashes or lesions noted LESIONS: lesion noted (minimal sore/excoriation on lower L lip, better) Data : 06/12/20 06:21 06/12/20 06:21 Micro: Microbiology 06/10/20 17:20 Urine Culture - Preliminary Urine,Clean Catch Gram Negative Rods A&P Assessment and plan (1) HTN (hypertension): Uncontrolled hypertension. Hypertensive urgency overnight required IV hydralazine, IV labetalol. Blood pressure little bit better. Will reduce IV fluids. Losartan has been on hold due to acute kidney injury. Continue Imdur. Kidney injury. Continue amlodipine. Cardiac diet. Reassess. Status: Inactive (2) NSTEMI (non-ST elevated myocardial infarction): Underwent diagnostic coronary geography today, with noted 40% stenosis LAD. No stent double lesions. Discussed with cardiology. Will discontinue anticoagulation. For now discontinue aspirin as well. Long-term would benefit from aspirin, however, may be safer once counts stabilize. V/Q with low probability for PE. Status: Acute (3) Pancytopenia: Counts appear to have somewhat stabilized. Posttreatment blastic phase of AML. Discussed with her electric organ assembler and checker. Arrangements are underway for her treatments, awaiting medications. Request is for first available outpatient appointment at discharge for her to initiate treatment. Secondary to AML. With history of SLE. 2 units leukoreduced irradiated platelets, 1 unit leukoreduced unit PRBC requested for transfusion. 2 additional units of platelets requested to be on hold given delay in obtaining these if needed urgently. Recheck response to platelet transfusion. Monitor for any bleeding. Target 20- 30,000 post platelet transfusion unless she starts bleeding in which case targets would change. Trace schistocytes noted on differential. ANC 440. Maintain reverse isolation. Status: Acute (4) Renal mass: Incidentally noted on US R kidney, 1.4 x 1.8 by 2.[address] not diagnostic. Discussed with her oncologist. May need additional assessment with contrast study, although has just undergone coronary angiogram. Additional evaluation may need to be postponed to allow adequate washout time. Status: Acute (5) KATERINA (acute kidney injury): KATERINA appears to have stabilized. Creatinine of 1.6. Receiving gentle IV hydration. Monitor. Baseline appears to be 1 or below. Unclear cause of this. Does take losartan at home. We will hold this medication. No hydronephrosis. Noted possible solid mass in the right kidney. Prerenal urine studies. Status: Acute (6) AML (acute myeloblastic leukemia): Recent diagnosis. Pending arrangements for chemotherapy with hematology to start at soonest available appointment. Status: Acute (7) Herpes labialis: Acyclovir. Status: Acute (8) Elevated d-dimer: Local debility PE on VQ. Negative duplex. Anticoagulation discontinued. Status: Acute (9) QT prolongation: Status: Acute Additional A&P Information Vomiting, loose stool: Resolved. no sample to collect. Minimal AST elevation: Minimal rise to 68 No abdo pain. CK normal. Reassess. Status post cholecystectomy. No mass or bile duct dilation on noncontrast CT. SLE HTN HLD DM2 Anxiety/depression Medications need to be reconciled. Attestations Medical Necessity Statement*: Status post coronary geography for possible non- STEMI, requires additional optimization of hypertension, continue arrangements for initiation of treatment for AML. Coding Level of Care Code Acute Java Integration Developer for g Fwd Diagnoses HTN (hypertension) I10 NSTEMI (non-ST elevated myocardial infarction) I21.4 Pancytopenia D61.818 Renal mass N28.89 KATERINA (acute kidney injury) N17.9 AML (acute myeloblastic leukemia) C92.00 Herpes labialis B00.1 Elevated d-dimer R79.89 QT prolongation R94.31
--- NOTE | 2020-06-12 20:47 | PC.NURSE ---
Patient has been getting up to bedside commode without asking for assistance. Patient was educated that she needs to ask for assistance before getting up to prevent a fall. Patient verbalized understanding. Patient has been educated on how to use call light and has call light within reach.
--- NOTE | 2020-06-12 21:25 | PC.NURSE ---
Dr. Epstein notified of patient's blood pressure ranging 160s-190s systolic. Heart rate is 77. Ordered to give 10 Labetalol IVP x1.
[2020-06-12] MEDS: labetalol 5 mg/mL SDV 20mL 10 MG IVP (21:43)
[2020-06-12] MEDS: ALPRAZolam 0.25 mg Tablet PO (22:59)
--- NOTE | 2020-06-12 23:57 | PC.NURSE ---
Patient's distal TR band removed at 2330. Patient's proximal TR band was removed first. Air was removed from both TR bands per order/protocol. Patient has large bruise to right wrist, but hematoma appears to be softening and does not appear to be getting any larger. Will monitor.
[2020-06-13] VITALS (37 sets, daily range): BP systolic 140–200; BP diastolic 54–108; PULSE 78–102; RESP 15–38; TEMP 36.5–36.9; O2SAT 95–97
--- NOTE | 2020-06-13 01:31 | PC.NURSE ---
Addendum entered by Madina Mistry RN 06/13/20 01:31: Ordered to give another 10 of Labetalol. Original Note: Dr. Epstein notified of patient's blood pressure still ranging 160s-190s systolic. Heart rate is 85. Awaiting orders.
[2020-06-13] MEDS: labetalol 5 mg/mL SDV 20mL 10 MG IVP (01:48)
--- NOTE | 2020-06-13 03:04 | PC.NURSE ---
Dr. Epstein notified of blood pressure of 194/96. 10 mg Hydralazine ordered x1.
[2020-06-13] MEDS: hyDRALAzine 20 mg/mL INJ 1 mL 10 MG IVP (03:25)
--- NOTE | 2020-06-13 03:40 | PC.NURSE ---
Right wrist dressing WNL. Radial pulse still present by palpitation. Old hemtoma still appears soft and has not grown any larger. Large bruise, no oozing or bleeding. Patient educated on post-cath activity restrictions and care and verbalized understanding.
--- NOTE | 2020-06-13 04:03 | PC.NURSE ---
Addendum entered by Madina Mistry RN 06/13/20 04:19: Patient is asymptomatic. Addendum entered by Madina Mistry RN 06/13/20 04:14: Manual blood pressure and repositioning of blood pressure cuff and patient position has been tried with same results of blood pressure readings. Original Note: Dr. Epstein notified of blood pressure of 185/108 after Hydralazine. Ordered to start Cardene drip.
[2020-06-13 04:06] LABS: Hematocrit 23.3 % (37.0-47.0); Hemoglobin 7.6 g/dL (11.5-15.3); Mean Corpuscular HGB Conc 32.6 g/dL (30.0-36.0); Mean Corpuscular Hemoglobin 28.6 pg (28.0-34.0); Mean Corpuscular Volume 87.6 fL (81-99); Red Blood Count 2.66 10^6/uL (4.1-5.3); Red Cell Distribution Width 18.8 % (12.1-15.1); White Blood Count 20.9 10^3/uL (4.0-10.0)
[2020-06-13] MEDS: nicardipine 20 MG/200 ML PREMIX 50 MG IV (04:13)
--- NOTE | 2020-06-13 04:21 | PC.NURSE ---
Attempt to call hoop flaring machine operator weapons officer (Dr. Farias) to notify of issues with blood pressure at beginning of shift with no response.
[2020-06-13 04:27] LABS: Alanine Aminotransferase 27 U/L (0-33); Albumin Level 3.6 g/dL (3.5-5.2); Alkaline Phosphatase 97 IU/L (35-105); Anion Gap 16.2 (5-19); Aspartate Amino Transferase 52 U/L (0-32); Blood Urea Nitrogen 17 mg/dL (8-23); Calcium 8.1 mg/dL (8.5-10.5); Carbon Dioxide 25 mmol/L (22-29); Chloride 102 mmol/L (98-107); Globulin 2.9 g/dL (1.3-4.6); Glucose 93 mg/dL (65-115); Osmolality Calculated 291 mOsm/kg (285-295); Potassium 3.2 mmol/L (3.5-5.1); Sodium 140 mmol/L (136-145); Total Bilirubin 0.6 mg/dL (0.15-1.2); Total Protein 6.5 g/dL (6.6-8.7)
[2020-06-13] MEDS: nicardipine 20 MG/200 ML PREMIX 150 MG IV ×2 (06:13→07:42)
[2020-06-13 07:18] LABS: Platelet Count 24 10^3/cmm (130-400)
[2020-06-13 07:20] LABS: Slide Review Slide Review Perform
[2020-06-13 07:27] LABS: Absolute Segmented Neutrophil 0.8 10/cmm (1.6-7.1); Band Neutrophils Absolute 0.2 10^3/cmm (0.0-1.2); Lymphocytes 55 %; Monocytes Absolute 1.5 10^3/cmm (0.1-0.6); Segmented Neutrophils 4 %; Total Cells Counted 100 (0-100)
[2020-06-13 07:28] LABS: Blastocytes 2 % (0-0); Corrected White Blood Count 19.9 10^3/cmm (4.8-10.8)
[2020-06-13 07:50] LABS: Eosinophils 0 %; Platelet Estimate Decreased (Normal)
--- NOTE | 2020-06-13 08:17 | PC.NURSE ---
Spoke with Dr. Keenan about lab results, reported patient elevated BP as well as interventions and medications given through the night, reported patient concerns of headache that wont let up no new orders obtained at this time.
[2020-06-13] MEDS: HYDROcodone-acetaminophen 5-325 mg Tablet 1 TAB PO ×2 (08:30→17:40)
[2020-06-13] MEDS: amlodipine 10 mg Tablet PO (08:30)
[2020-06-13] MEDS: metoprolol tartrate 50 mg Tablet PO ×2 (08:30→19:26)
[2020-06-13] MEDS: hyDRALAzine 50 mg Tablet 25 MG PO (08:30)
--- NOTE | 2020-06-13 08:58 | P.PN_ITS ---
Subjective Subjective: Interval history: Patient is doing well. Feels weak. Underwent coronary angiography yesterday that did not show significant coronary artery disease. Her blood pressure is still uncontrolled. Right radial access site has bruising but no hematoma. Vitals/I&O/Wt Last Vital Signs Temp 97.7 F 06/13/20 03:46 Pulse 98 06/13/20 08:00 Resp 18 06/13/20 08:00 BP 159/79 06/13/20 08:00 Pulse Ox 97 06/13/20 03:46 06/12/20 06/13/20 06/13/20 22:59 06:59 14:59 Intake Total 1047.099 / 1314.099 310.000 / 1624.099 502.5 / 502.5 Balance 1047.099 / 1314.099 310.000 / 1624.099 502.5 / 502.5 Weight last 48 hrs Weight 219 lb 14.4 oz Weight 218 lb 8 oz Physical Exam Const: COMMON NORMALS: no acute distress, patient oriented x3 and alert GENERAL APPEARANCE: cooperative ORIENTATION/CONSCIOUSNESS: Yes awake HENMT: COMMON NORMALS: oropharynx normal Neck/C-Spine: COMMON NORMALS: no JVD Resp: COMMON NORMALS: normal respiratory effort and clear to auscultation bilaterally AUSCULTATION: clear to auscultation bilaterally Cardio: COMMON NORMALS: no JVD, regular rhythm, S1 normal heart sound present, S2 normal heart sound present and No murmurs present (Cardio) RHYTHM: regular rhythm HEART SOUNDS: S1 normal heart sound present and S2 normal heart sound present GI: COMMON NORMALS: Normal to inspection, nondistended, normoactive bowel sounds present, Soft to palpation and non-tender PALPATION: Yes Soft to palpation Extremity: COMMON NORMALS: no joint enlargement and no pedal edema Neuro: COMMON NORMALS: patient oriented x3 and moves all extremities Skin: COMMON NORMALS: no rashes or lesions noted Data : 06/13/20 03:38 06/14/20 03:19 Micro: Microbiology 06/10/20 17:20 Urine Culture - Preliminary Urine,Clean Catch Gram Negative Rods A&P Assessment and plan (1) NSTEMI (non-ST elevated myocardial infarction): Status: Acute (2) Pancytopenia: Status: Acute (3) KATERINA (acute kidney injury): Status: Acute (4) AML (acute myeloblastic leukemia): Status: Acute (5) Elevated d-dimer: Status: Acute (6) QT prolongation: Status: Acute Patient had presented with NSTEMI and pancytopenia. Underwent coronary angiography yesterday that showed moderate mid LAD stenosis, no severe disease. Medical management for now. Creatinine is improving. Blood pressure is elevated. On amlodipine 10mg, uptitrate metoprolol to 100mg bid. Her headaches could be related to Imdur, will need to reassess continued use. In case blood pressure stays elevated, consider HCTZ Will benefit from aspirin assisted but given patient has pancytopenia,will hold off on it till blood counts are stabilized VQ scan low probability for PE. ECHO shows normal LV systolic function. Thank you for involving us with care this patient. We will continue to follow. Please call with questions Attestations Medical Necessity Statement*: Care expected to cross 2 midnights. Coding Level of Care Code Acute Nonprofit Financial Controller for rolanda Soriano Diagnoses NSTEMI (non-ST elevated myocardial infarction) I21.4 Pancytopenia D61.818 KATERINA (acute kidney injury) N17.9 AML (acute myeloblastic leukemia) C92.00 Elevated d-dimer R79.89 QT prolongation R94.31
[2020-06-13] MEDS: pantoprazole DR 40 mg Tablet PO (10:26)
[2020-06-13] MEDS: isosorbide mononitrate ER 60 mg Tablet PO (10:26)
[2020-06-13] MEDS: acyclovir 500 MG in sodium chloride 0.9% (100 ml) 100 ML 110 MG IV (14:07)
--- NOTE | 2020-06-13 14:39 | DCPLANNER ---
IMM completed on 06/13/20 @ 4826. Pt is quarantined and nurse Cindy was given for to give to pt.
--- NOTE | 2020-06-13 19:00 | PC.NURSE ---
spoke with Dr pleitez about patient reports of headache with elevated Bp this evening instructions obtained to give 2mg IVP morphine to help with pain and give evening dose of metoprolol with morphine
--- NOTE | 2020-06-13 19:07 | PC.NURSE ---
Shanika spoke with Dr pleitez with concerns of giving hydralazine QID when patient bp is stable at 134/58 instructions obtained to discontinue Hydralazine and continue to monitor
[2020-06-13] MEDS: morphine 4 mg/mL SDV 1 mL 2 MG IVP (19:26)
--- NOTE | 2020-06-13 20:21 | PC.NURSE ---
PT RESTING IN BED. PT C/O 4/10 PAIN HEADACHE. SUBWAY REPAIR SUPERVISOR NURSE GAVE MORPHINE PUSH. PT BP IS COMING DOWN. CURRENT BP 122/71. WILL CONTINUE TO MONITOR.
[2020-06-13] MEDS: atorvastatin 40 mg Tablet PO (20:59)
--- NOTE | 2020-06-13 22:17 | PM.PN ---
Subjective Subjective: Interval history: Today intermittent headache accompanied by hypertension. Treatment of pain. To improve blood pressure. She otherwise is not bothered by light. Without meningeal signs. Vitals/I&O/Wt Last Vital Signs Temp 98.5 F 06/13/20 20:00 Pulse 90 06/13/20 20:00 Resp 16 06/13/20 20:00 BP 140/68 06/13/20 20:00 Pulse Ox 95 06/13/20 20:00 06/13/20 06/13/20 06/13/20 06:59 14:59 22:59 Intake Total 310.000 / 1624.099 740.0 / 740.0 110 / 850.0 Balance 310.000 / 1624.099 740.0 / 740.0 110 / 850.0 Weight last 48 hrs Weight 99.745 kg Weight 99.11 kg Physical Exam Const: COMMON NORMALS: no acute distress, patient oriented x3 and alert GENERAL APPEARANCE: cooperative ORIENTATION/CONSCIOUSNESS: Yes awake HENMT: COMMON NORMALS: oropharynx normal Neck/C-Spine: COMMON NORMALS: no JVD Resp: COMMON NORMALS: normal respiratory effort and clear to auscultation bilaterally AUSCULTATION: clear to auscultation bilaterally Cardio: COMMON NORMALS: no JVD, regular rhythm, S1 normal heart sound present, S2 normal heart sound present and No murmurs present (Cardio) RHYTHM: regular rhythm HEART SOUNDS: S1 normal heart sound present and S2 normal heart sound present GI: COMMON NORMALS: Normal to inspection, nondistended, normoactive bowel sounds present, Soft to palpation and non-tender PALPATION: Yes Soft to palpation Extremity: COMMON NORMALS: no joint enlargement and no pedal edema Neuro: COMMON NORMALS: patient oriented x3 and moves all extremities SENSORIUM/ORIENTATION: Yes alert Skin: COMMON NORMALS: no rashes or lesions noted GENERAL SKIN EXAM: no rashes or lesions noted LESIONS: lesion noted (minimal sore/excoriation on lower L lip, better) Data : 06/13/20 03:38 06/13/20 03:38 Micro: Microbiology 06/10/20 17:20 Urine Culture - Final Urine,Clean Catch Escherichia coli A&P Assessment and plan (1) HTN (hypertension): Again hypertensive urgency last night, requiring IV hydralazine, IV labetalol. Hypertensive urgency episodes appear to be correlated with headache. Initially thought to be the result, considerations perhaps headache is triggering hypertension, possibly marrow pain secondary to AML. Increase metoprolol dose this morning. Added hydralazine p.o. Also added Reserve for pain. This appears to improve blood pressure quite a bit during the day. Again hypertensive in the evening, we advance metoprolol dose. Additional pain medication. If responds well, perhaps this may help control blood pressures. Hydralazine for now held, but may need to be resumed in case blood pressure again elevated. DC IV fluids. Losartan has been on hold due to acute kidney injury. Continue Imdur. Continue amlodipine. Cardiac diet. Reassess. Discussed plan with her son. In case blood pressure better controlled, may discharge with plans for outpatient initiation of treatment for AML at soonest available appointment as soon as her medications arrive. Status: Inactive (2) NSTEMI (non-ST elevated myocardial infarction): Underwent diagnostic coronary geography today, with noted 40% stenosis LAD. No stent double lesions. Discussed with cardiology. Will discontinue anticoagulation. For now discontinue aspirin as well. Long-term would benefit from aspirin, however, may be safer once counts stabilize. V/Q with low probability for PE. Status: Acute (3) Pancytopenia: Counts appear to have somewhat stabilized. Posttreatment blastic phase of AML. Discussed with her captain's assistant. Arrangements are underway for her treatments, awaiting medications. Request is for first available outpatient appointment at discharge for her to initiate treatment. Secondary to AML. With history of SLE. 2 units leukoreduced irradiated platelets, 1 unit leukoreduced unit PRBC requested for transfusion. 2 additional units of platelets requested to be on hold given delay in obtaining these if needed urgently. Recheck response to platelet transfusion. Monitor for any bleeding. Target 20-30,000 post platelet transfusion unless she starts bleeding in which case targets would change. Trace schistocytes noted on differential. Maintain reverse isolation. Status: Acute (4) Renal mass: Incidentally noted on US R kidney, 1.4 x 1.8 by 2.[address] not diagnostic. Discussed with her oncologist. May need additional assessment with contrast study, although has just undergone coronary angiogram. Additional evaluation may need to be postponed to allow adequate washout time. Status: Acute (5) KTAERINA (acute kidney injury): Improving. Received gentle IV hydration. Monitor. DC fluids. Baseline appears to be 1 or below. Unclear cause of this. Does take losartan at home. We will hold this medication. No hydronephrosis. Noted possible solid mass in the right kidney. Prerenal urine studies. Status: Acute (6) AML (acute myeloblastic leukemia): Recent diagnosis. Pending arrangements for chemotherapy with hematology to start at soonest available appointment. Status: Acute (7) Herpes labialis: Acyclovir. Status: Acute (8) Elevated d-dimer: Local debility PE on VQ. Negative duplex. Anticoagulation discontinued. Status: Acute (9) QT prolongation: Status: Acute Additional A&P Information Vomiting, loose stool: Resolved. no sample to collect. Minimal AST elevation: Minimal rise to 68 No abdo pain. CK normal. Reassess. Status post cholecystectomy. No mass or bile duct dilation on noncontrast CT. SLE HTN HLD DM2 Anxiety/depression Medications need to be reconciled. Attestations Medical Necessity Statement*: Continue admission for optimization of HTN control, with recurrent episodes of HTN urgency, disposition planning and arrangements for treatment for advancing AML. Coding Level of Care Code Acute Applied Exercise Physiologist for g Fwd Diagnoses HTN (hypertension) I10 NSTEMI (non-ST elevated myocardial infarction) I21.4 Pancytopenia D61.818 Renal mass N28.89 KATERINA (acute kidney injury) N17.9 AML (acute myeloblastic leukemia) C92.00 Herpes labialis B00.1 Elevated d-dimer R79.89 QT prolongation R94.31
[2020-06-14] VITALS (22 sets, daily range): BP systolic 136–201; BP diastolic 58–98; PULSE 64–101; RESP 14–22; TEMP 36.2–37.4; O2SAT 91–100
[2020-06-14] MEDS: acyclovir 400 mg Tablet PO ×4 (00:03→20:21)
--- NOTE | 2020-06-14 02:33 | PC.NURSE ---
PT HAD ANGIOGRAM TO RIGHT WRIST. THERE IS BRUISING NOTED THAT IS DOCUMENTED. PT HAD C/O HEADACHE AND HAD ELEVATED BP. THAT WAS RESOLVED. WILL CONTINUE TO MONITOR.
--- NOTE | 2020-06-14 05:00 | PC.NURSE ---
PT HAD AN UNEVENTFUL NIGHT. PT DENIES PAIN AT THIS TIME. WILL CONTINUE TO MONITOR.
[2020-06-14 05:40] LABS: Basophils # 0.1 10^3/uL (0.0-0.1); Basophils % 0.4 %; Eosinophils % 0.1 %; Hematocrit 22.6 % (37.0-47.0); Hemoglobin 7.3 g/dL (11.5-15.3); Lymphocytes # 6.1 10^3/uL (0.8-4.8); Mean Corpuscular HGB Conc 32.3 g/dL (30.0-36.0); Mean Corpuscular Hemoglobin 28.5 pg (28.0-34.0); Mean Corpuscular Volume 88.3 fL (81-99); Monocytes # 17.5 10^3/uL (0.2-0.9); Neutrophils % 3.1 %; Nucleated Red Blood Cells # 0.1 /100WBC; Nucleated Red Blood Cells % 0.5 %; Red Blood Count 2.56 10^6/uL (4.1-5.3); Red Cell Distribution Width 18.5 % (12.1-15.1); White Blood Count 25.4 10^3/uL (4.0-10.0)
[2020-06-14 06:19] LABS: Alanine Aminotransferase 34 U/L (0-33); Albumin Level 3.5 g/dL (3.5-5.2); Alkaline Phosphatase 159 IU/L (35-105); Aspartate Amino Transferase 82 U/L (0-32); Blood Urea Nitrogen 12 mg/dL (8-23); Carbon Dioxide 24 mmol/L (22-29); Chloride 102 mmol/L (98-107); Glucose 96 mg/dL (65-115); Osmolality Calculated 290 mOsm/kg (285-295); Sodium 140 mmol/L (136-145); Total Bilirubin 1.1 mg/dL (0.15-1.2); Total Protein 6.5 g/dL (6.6-8.7)
[2020-06-14] MEDS: isosorbide mononitrate ER 60 mg Tablet PO (09:32)
[2020-06-14] MEDS: pantoprazole DR 40 mg Tablet PO (09:33)
[2020-06-14] MEDS: amlodipine 10 mg Tablet PO (09:33)
[2020-06-14] MEDS: metoprolol tartrate 50 mg Tablet PO (09:33)
[2020-06-14] MEDS: potassium chloride ER 20 mEq Tablet 40 MEQ PO (09:33)
[2020-06-14] MEDS: hyDRALAzine 25 mg Tablet PO ×2 (09:34→18:50)
[2020-06-14 10:05] LABS: Platelet Count 22 10^3/cmm (130-400)
[2020-06-14 10:06] LABS: Neutrophils # 0.79 10^3/uL (1.8-7.7); Slide Review Slide Review Perform
--- NOTE | 2020-06-14 13:43 | P.PN_ITS ---
Subjective Subjective: Interval history: She is not really feeling well today. Cannot really describe, feels generally tired. Not a particular complaint. No headache. Breathing is okay. No chest pain. Vitals/I&O/Wt Last Vital Signs Temp 97.9 F 06/14/20 11:15 Pulse 101 H 06/14/20 12:20 Resp 20 H 06/14/20 11:15 BP 176/78 06/14/20 12:20 Pulse Ox 94 06/14/20 11:15 06/13/20 06/14/20 06/14/20 22:59 06:59 14:59 Intake Total 330 / 1070.0 Output Total 371 / 371 Balance 330 / 1070.0 -371 / -371 Weight last 48 hrs Weight 97.477 kg Weight 99.745 kg Physical Exam Const: COMMON NORMALS: no acute distress, patient oriented x3 and alert GENERAL APPEARANCE: cooperative ORIENTATION/CONSCIOUSNESS: Yes awake OTHER: Malaise with headache, nausea HENMT: COMMON NORMALS: oropharynx normal Neck/C-Spine: COMMON NORMALS: no JVD Resp: COMMON NORMALS: normal respiratory effort and clear to auscultation bilaterally AUSCULTATION: clear to auscultation bilaterally Cardio: COMMON NORMALS: no JVD, regular rhythm, S1 normal heart sound present, S2 normal heart sound present and No murmurs present (Cardio) RHYTHM: regular rhythm HEART SOUNDS: S1 normal heart sound present and S2 normal heart sound present GI: COMMON NORMALS: Normal to inspection, nondistended, normoactive bowel sounds present, Soft to palpation and non-tender PALPATION: Yes Soft to palpation Extremity: COMMON NORMALS: no joint enlargement and no pedal edema Neuro: COMMON NORMALS: patient oriented x3 and moves all extremities SENSORIUM/ORIENTATION: Yes alert Skin: COMMON NORMALS: no rashes or lesions noted GENERAL SKIN EXAM: no rashes or lesions noted LESIONS: lesion noted (minimal sore/excoriation on lower L lip, better) Data : 06/14/20 03:19 06/14/20 03:19 Micro: Microbiology 06/10/20 17:20 Urine Culture - Final Urine,Clean Catch Escherichia coli A&P Assessment and plan (1) HTN (hypertension): Blood pressures a little bit better, 160s-170s, but still 1 value 201 this morning. Increase metoprolol to 75 mg twice daily, given additional 25 mg this morning after received 50 mg. Added hydralazine 25 mg twice daily. Continue Imdur. Amlodipine. Cardiac diet. Also increase pain medication dose to 2 tablets hydrocodone as needed as pain appears to play a big role. Discussed with her and her son. Losartan has been on hold due to acute kidney injury. Status: Inactive (2) Pancytopenia: Today she is feeling generally weak. With symptomatic anemia. Hemoglobin down to 7.3. Platelets down to 22,000. Discussed with her and her son, we will go ahead and transfuse additional 1 unit leukodistorted PRBC. 1 unit of leukoreduced irradiated platelets. Secondary to AML, pending start of treatment. With history of SLE. Trace schistocytes noted on differential. Maintain reverse isolation. Status: Acute (3) NSTEMI (non-ST elevated myocardial infarction): Underwent diagnostic coronary angiography, with noted 40% stenosis LAD. No stentable lesions. For now discontinue aspirin as well. Long-term would benefit from aspirin, ho wever, may be safer once counts stabilize. V/Q with low probability for PE. Status: Acute (4) Renal mass: Incidentally noted on US R kidney, 1.4 x 1.8 by 2.[address] not diagnostic. Discussed with her oncologist. May need additional assessment with contrast study, although has just undergone coronary angiogram. Additional evaluation may need to be postponed to allow adequate washout time. Status: Acute (5) KATERINA (acute kidney injury): Resolving. Baseline appears to be 1 or below. Unclear cause of this. Does take losartan at home. We will hold this medication. No hydronephrosis. Noted possible solid mass in the right kidney. Prerenal urine studies. Status: Acute (6) AML (acute myeloblastic leukemia): Recent diagnosis. Pending arrangements for chemotherapy with hematology to start at soonest available appointment. Status: Acute (7) Herpes labialis: Acyclovir. Status: Acute (8) Elevated d-dimer: Local debility PE on VQ. Negative duplex. Anticoagulation discontinued. Status: Acute (9) QT prolongation: Status: Acute Additional A&P Information Vomiting, loose stool: Resolved. no sample to collect. Minimal AST elevation: Minimal rise. No abdo pain. CK normal. Reassess. Status post cholecystectomy. No mass or bile duct dilation on noncontrast CT. SLE HTN HLD DM2 Anxiety/depression Medications need to be reconciled. Attestations Medical Necessity Statement*: Continue admission for assessment management of pancytopenia, symptomatic anemia, with underlying advancing AML, awaiting initiation of treatment, optimization of control of hypertension with hypertensive urgency episodes. Coding Level of Care Code Acute Building Supervisor for g Fwd Diagnoses HTN (hypertension) I10 Pancytopenia D61.818 NSTEMI (non-ST elevated myocardial infarction) I21.4 Renal mass N28.89 KATERINA (acute kidney injury) N17.9 AML (acute myeloblastic leukemia) C92.00 Herpes labialis B00.1 Elevated d-dimer R79.89 QT prolongation R94.31
--- NOTE | 2020-06-14 14:22 | P.PN_ITS ---
Subjective Subjective: Interval history: Denies any chest pain. Complaints of headache Medications: Reviewed: Yes Medication Review Details: Current Medications Acetaminophen (Acetaminophen 325 Mg Tablet) 650 mg PO Q6H PRN PRN Reason: MILD PAIN Hydrocodone Bitart/Acetaminophen (Hydrocodone-Acetaminophen 5-325 Mg Tablet) 2 tab PO Q4H PRN PRN Reason: MODERATE PAIN Acyclovir (Acyclovir 400 Mg Tablet) 400 mg PO TID [facility] Last Admin: 06/14/20 09:34 Dose: 400 mg Documented by: Al Hydrox/Mg Hydrox/Simethicone ([id number]-Ijfwlwslu-Steven 30 Ml Udc) 30 ml PO Q15M PRN PRN Reason: INDIGESTION Alprazolam (Alprazolam 0.25 Mg Tablet) 0.25 mg PO TID PRN PRN Reason: ANXIETY Last Admin: 06/12/20 22:59 Dose: 0.25 mg Documented by: Amlodipine Besylate (Amlodipine 10 Mg Tablet) 10 mg PO DAILY [facility] Last Admin: 06/14/20 09:33 Dose: 10 mg Documented by: Atorvastatin Calcium (Atorvastatin 40 Mg Tablet) 40 mg PO BEDTIME [facility] Last Admin: 06/13/20 20:59 Dose: 40 mg Documented by: Atropine Sulfate (Atropine 1 Mg/Ml Sdv 1 Ml) 0.5 mg IVP PRN PRN PRN Reason: Symptomatic bradycardia Fentanyl (Fentanyl 50 Mcg/Ml Inj 2ml) 50 mcg IVP PRN PRN PRN Reason: Prior to sheath removal Hydralazine HCl (Hydralazine 25 Mg Tablet) 25 mg PO BID [facility] Last Admin: 06/14/20 09:34 Dose: 25 mg Documented by: Nicardipine/Sodium Chloride (Cardene) 20 mg in 200 mls @ 0 mls/hr IV .Q0M [facility]; Protocol Last Titration: 06/13/20 09:10 Dose: Infused Documented by: Isosorbide Mononitrate (Isosorbide Mononitrate Er 60 Mg Tablet) 60 mg PO DAILY@1000 TICO Last Admin: 06/14/20 09:32 Dose: 60 mg Documented by: Magnesium Hydroxide (Magnesium Hydroxide 30 Ml Udc) 30 ml PO DAILY PRN PRN Reason: CONSTIPATION Metoclopramide HCl (Metoclopramide 5 Mg/Ml Sdv 2 Ml) 5 mg IVP Q6H PRN PRN Reason: NAUSEA AND VOMITING Last Admin: 06/11/20 13:33 Dose: 5 mg Documented by: Metoprolol Tartrate (Metoprolol Tartrate 50 Mg Tablet) 75 mg PO BID@0900,2100 TICO Naloxone HCl (Naloxone 0.4 Mg/Ml Sdv) 0.1 mg IVP Q2M PRN PRN Reason: RESPIRATORY RATE < 8/MIN Nitroglycerin (Nitroglycerin 0.4 Mg Sublingual Tablet) 0.4 mg SUBLINGUAL Q5M PRN PRN Reason: CHEST PAIN Pantoprazole Sodium (Pantoprazole Dr 40 Mg Tablet) 40 mg PO DAILY@1000 TICO Last Admin: 06/14/20 09:33 Dose: 40 mg Documented by: Temazepam (Temazepam 15 Mg Capsule) 15 mg PO BEDTIME PRN PRN Reason: INSOMNIA Last Admin: 06/12/20 20:21 Dose: 15 mg Documented by: Vitals/I&O/Wt Last Vital Signs Temp 97.9 F 06/14/20 11:15 Pulse 101 H 06/14/20 12:20 Resp 20 H 06/14/20 11:15 BP 176/78 06/14/20 12:20 Pulse Ox 94 06/14/20 11:15 06/13/20 06/14/20 06/14/20 22:59 06:59 14:59 Intake Total 330 / 1070.0 Output Total 371 / 371 Balance 330 / 1070.0 -371 / -371 Weight last 48 hrs Weight 214 lb 14.4 oz Weight 219 lb 14.4 oz Physical Exam Narrative: EXAM NARRATIVE: GENERAL: Obese woman lying in bed in no acute distress HEENT: Pupils equal round reactive to light. No pallor or icterus. NECK: No JVD. No carotid bruit. CARDIOVASCULAR SYSTEM: S1-S2 regular. No murmur rubs or gallops. RESPIRATORY SYSTEM: Chest clear to auscultation. No wheezes rhonchi or rubs heard. No use of accessory muscles. ABDOMEN: Soft, nontender and nondistended. Normal bowel sounds present. EXTREMITIES: No cyanosis or clubbing. No edema. 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 No focal neurological deficits. Data : 06/14/20 03:19 06/14/20 03:19 Micro: Microbiology 06/10/20 17:20 Urine Culture - Final Urine,Clean Catch Escherichia coli Attestation for Other Data: I personally reviewed and interpreted the following: Other data: Coronary angiogram 12 June 2020 * LM has mild luminal irregularities. * CX has no significant stenosis. * RCA has mild luminal irregularities. * dLAD: Moderate 50% stenosis, RAHEEL: 3 flow. * Coronary angiography shows right dominance. Conclusions 1. There is moderate mid to distal LAD stenosis. Recommendations * Continue current medical management and risk factor modification. Transthoracic echocardiogram 11 June 2020 CONCLUSIONS 1-Normal left ventricular cavity size. Normal left ventricular systolic function. No regional wall motion abnormalities. Left ventricular ejection fraction is estimated at 55 %. Grade I/IV diastolic dysfunction (abnormal relaxation filling pattern), normal to mildly elevated filling pressures. 2-Moderately thickened mitral valve. Moderate mitral annular calcification. No mitral valve stenosis. Trace mitral valve regurgitation. 3-Structurally normal aortic valve without significant sclerosis or stenosis. There is no aortic regurgitation. 4-Thickened tricuspid valve. Mild tricuspid valve regurgitation. 5-There is no pericardial effusion. 6-Right atrial pressure is around 5 mm of mercury. 7-There are no prior echocardiogram studies to compare. A&P Assessment and plan (1) NSTEMI (non-ST elevated myocardial infarction): Patient had presented with NSTEMI and pancytopenia. Underwent coronary angiography that showed moderate mid to distal LAD stenosis, no severe disease. Medical management for now. Will benefit from aspirin long-term but given patient has pancytopenia,will hold off on it till blood counts are stabilized VQ scan low probability for PE. Status: Acute (2) HTN (hypertension): Blood pressures uncontrolled -Transition to Coreg 25 mg twice daily. Stop metoprolol -Continue Amlodipine. Patient continues to have headaches with Imdur. -Increase hydralazine to 50 mg 3 times daily tomorrow morning and stop Imdur -Losartan was held due to acute kidney injury. Status: Inactive Qualifiers: Hypertension type: essential hypertension Qualified Code(s): I10 - Essential (primary) hypertension (3) KATERINA (acute kidney injury): Resolved. Follow-up BMP in a.m. Status: Acute (4) Pancytopenia: Today she is feeling generally weak. With symptomatic anemia. Hemoglobin down to 7.3. Platelets down to 22,000. Discussed with her and her son, we will go ahead and transfuse additional 1 unit leukodistorted PRBC. 1 unit of leukoreduced irradiated platelets. Secondary to AML, pending start of treatment. With history of SLE. Trace schistocytes noted on differential. Maintain reverse isolation. Status: Acute (5) QT prolongation: Follow-up on repeat EKG. Status: Acute (6) Renal mass: Status: Acute (7) AML (acute myeloblastic leukemia): Recent diagnosis. Pending arrangements for chemotherapy with hematology to start at soonest available appointment. Status: Acute Additional A&P Information Dyslipidemia Diabetes mellitus type 2 Abnormal liver enzymes Hypokalemia: Replaced SLE Thank you for allowing me to participate in patient's care. Please feel free to call with questions or concerns Attestations Medical Necessity Statement*: As per primary team Time Spent in Patient Care: 16 - 35 minutes (>than 50% of time spent in counselling and/or direct pt care on unit) . Coding Level of Care Code Acute Health Care Technician for g Fwd Diagnoses NSTEMI (non-ST elevated myocardial infarction) I21.4 HTN (hypertension) I10 Hypertension type: essential hypertension KATERINA (acute kidney injury) N17.9 Pancytopenia D61.818 QT prolongation R94.31 Renal mass N28.89 AML (acute myeloblastic leukemia) C92.00
--- NOTE | 2020-06-14 14:34 | ECG_ITS ---
[facility] Test Date: 2020-06-14 Pat Name: Susana Lucio Department: Room: 105 Gender: Female Pension Manager: : 1945 Requested By: Arlene Goel Order Number: [id number] Amanda MD: Arlene Goel M.D. 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 [id number]
[2020-06-14] MEDS: metoprolol tartrate 25 mg Tablet PO (15:11)
[2020-06-14] MEDS: HYDROcodone-acetaminophen 5-325 mg Tablet 2 TAB PO ×2 (15:12→20:20)
[2020-06-14] MEDS: carvedilol 25 mg Tablet PO (18:50)
[2020-06-14] MEDS: atorvastatin 40 mg Tablet PO (20:20)
[2020-06-14] MEDS: sodium chloride 0.9% (100 ml) 100 ML 20 ML (20:58)
[2020-06-14] MEDS: nitroglycerin 0.4 mg sublingual Tablet SUBLINGUAL (22:38)
[2020-06-15] VITALS (10 sets, daily range): BP systolic 132–189; BP diastolic 53–88; PULSE 74–94; RESP 12–22; TEMP 36.7–37; O2SAT 94–97
[2020-06-15] MEDS: metoclopramide 5 mg/mL SDV 2 mL IVP (04:21)
[2020-06-15] MEDS: ondansetron 2 mg/ML SDV 2 mL 4 MG IVP (05:50)
[2020-06-15 06:22] LABS: Basophils # 0.1 10^3/uL (0.0-0.1); Basophils % 0.6 %; Eosinophils % 0.1 %; Hematocrit 25.4 % (37.0-47.0); Hemoglobin 8.5 g/dL (11.5-15.3); Lymphocytes # 5.6 10^3/uL (0.8-4.8); Mean Corpuscular HGB Conc 33.5 g/dL (30.0-36.0); Mean Corpuscular Hemoglobin 29.5 pg (28.0-34.0); Mean Corpuscular Volume 88.2 fL (81-99); Monocytes # 17.6 10^3/uL (0.2-0.9); Monocytes % 69.8 %; Neutrophils # 1.02 10^3/uL (1.8-7.7); Nucleated Red Blood Cells # 0.2 /100WBC; Nucleated Red Blood Cells % 0.8 %; Platelet Count 33 10^3/cmm (130-400); Red Blood Count 2.88 10^6/uL (4.1-5.3); Red Cell Distribution Width 17.4 % (12.1-15.1); White Blood Count 25.2 10^3/uL (4.0-10.0)
[2020-06-15 07:12] LABS: Alanine Aminotransferase 30 U/L (0-33); Albumin Level 3.8 g/dL (3.5-5.2); Alkaline Phosphatase 153 IU/L (35-105); Anion Gap 20.9 (5-19); Aspartate Amino Transferase 58 U/L (0-32); Blood Urea Nitrogen 11 mg/dL (8-23); Carbon Dioxide 20 mmol/L (22-29); Chloride 96 mmol/L (98-107); Globulin 3.2 g/dL (1.3-4.6); Glucose 129 mg/dL (65-115); Osmolality Calculated 279 mOsm/kg (285-295); Sodium 134 mmol/L (136-145); Total Bilirubin 1.1 mg/dL (0.15-1.2)
[2020-06-15 07:21] LABS: Potassium 2.9 mmol/L (3.5-5.1)
--- NOTE | 2020-06-15 08:41 | PM.PN ---
Subjective Subjective: Interval history: Seems a little confused today. received platelets and pRBC yesterday Medications: Reviewed: Yes Medication Review Details: Current Medications Acetaminophen (Acetaminophen 325 Mg Tablet) 650 mg PO Q6H PRN PRN Reason: MILD PAIN Hydrocodone Bitart/Acetaminophen (Hydrocodone-Acetaminophen 5-325 Mg Tablet) 2 tab PO Q4H PRN PRN Reason: MODERATE PAIN Last Admin: 06/14/20 20:20 Dose: 2 tab Documented by: Acyclovir (Acyclovir 400 Mg Tablet) 400 mg PO TID [facility] Last Admin: 06/14/20 20:21 Dose: 400 mg Documented by: Al Hydrox/Mg Hydrox/Simethicone (Crvd-Hhk-Outuuatbq-Steven 30 Ml Udc) 30 ml PO Q15M PRN PRN Reason: INDIGESTION Alprazolam (Alprazolam 0.25 Mg Tablet) 0.25 mg PO TID PRN PRN Reason: ANXIETY Last Admin: 06/12/20 22:59 Dose: 0.25 mg Documented by: Amlodipine Besylate (Amlodipine 10 Mg Tablet) 10 mg PO DAILY [facility] Last Admin: 06/14/20 09:33 Dose: 10 mg Documented by: Atorvastatin Calcium (Atorvastatin 40 Mg Tablet) 40 mg PO BEDTIME [facility] Last Admin: 06/14/20 20:20 Dose: 40 mg Documented by: Atropine Sulfate (Atropine 1 Mg/Ml Sdv 1 Ml) 0.5 mg IVP PRN PRN PRN Reason: Symptomatic bradycardia Carvedilol (Carvedilol 25 Mg Tablet) 25 mg PO BID [facility] Last Admin: 06/14/20 18:50 Dose: 25 mg Documented by: Fentanyl (Fentanyl 50 Mcg/Ml Inj 2ml) 50 mcg IVP PRN PRN PRN Reason: Prior to sheath removal Hydralazine HCl (Hydralazine 25 Mg Tablet) 50 mg PO TID [facility] Nicardipine/Sodium Chloride (Cardene) 20 mg in 200 mls @ 0 mls/hr IV .Q0M [facility]; Protocol Last Titration: 06/13/20 09:10 Dose: Infused Documented by: Isosorbide Mononitrate (Isosorbide Mononitrate Er 60 Mg Tablet) 60 mg PO DAILY@1000 TICO Last Admin: 06/14/20 09:32 Dose: 60 mg Documented by: Lanolin (Lanolin Oint 7 Gm) 1 applic TOPICAL PRN PRN PRN Reason: DRYNESS Magnesium Hydroxide (Magnesium Hydroxide 30 Ml Udc) 30 ml PO DAILY PRN PRN Reason: CONSTIPATION Metoclopramide HCl (Metoclopramide 5 Mg/Ml Sdv 2 Ml) 5 mg IVP Q6H PRN PRN Reason: NAUSEA AND VOMITING Last Admin: 06/15/20 04:21 Dose: 5 mg Documented by: Naloxone HCl (Naloxone 0.4 Mg/Ml Sdv) 0.1 mg IVP Q2M PRN PRN Reason: RESPIRATORY RATE < 8/MIN Nitroglycerin (Nitroglycerin 0.4 Mg Sublingual Tablet) 0.4 mg SUBLINGUAL Q5M PRN PRN Reason: CHEST PAIN Last Admin: 06/14/20 22:38 Dose: 0.4 mg Documented by: Ondansetron HCl (Ondansetron 2 Mg/Ml Sdv 2 Ml) 4 mg IVP Q4H PRN PRN Reason: NAUSEA Last Admin: 06/15/20 05:50 Dose: 4 mg Documented by: Pantoprazole Sodium (Pantoprazole Dr 40 Mg Tablet) 40 mg PO DAILY@1000 TICO Last Admin: 06/14/20 09:33 Dose: 40 mg Documented by: Temazepam (Temazepam 15 Mg Capsule) 15 mg PO BEDTIME PRN PRN Reason: INSOMNIA Last Admin: 06/12/20 20:21 Dose: 15 mg Documented by: Vitals/I&O/Wt Last Vital Signs Temp 98.4 F 06/15/20 07:17 Pulse 94 06/15/20 07:17 Resp 19 H 06/15/20 07:17 BP 164/72 06/15/20 07:17 Pulse Ox 94 06/15/20 07:17 06/14/20 06/15/20 06/15/20 22:59 06:59 14:59 Intake Total 970 / 970 333 / 1303 Balance 970 / 599 333 / 932 Weight last 48 hrs Weight 207 lb 6.4 oz Weight 214 lb 14.4 oz Physical Exam Narrative: EXAM NARRATIVE: GENERAL: Obese woman lying in bed in no acute distress HEENT: Pupils equal round reactive to light. No pallor or icterus. NECK: No JVD. No carotid bruit. CARDIOVASCULAR SYSTEM: S1-S2 regular. No murmur rubs or gallops. RESPIRATORY SYSTEM: Chest clear to auscultation. No wheezes rhonchi or rubs heard. No use of accessory muscles. ABDOMEN: Soft, nontender and nondistended. Normal bowel sounds present. EXTREMITIES: No cyanosis or clubbing. No edema. 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 . Data : 06/15/20 05:12 06/15/20 05:12 Other data: Attestation for Other Data: I personally reviewed and interpreted the following: Other data: Coronary angiogram 12 June 2020 * LM has mild luminal irregularities. * CX has no significant stenosis. * RCA has mild luminal irregularities. * dLAD: Moderate 50% stenosis, RAHEEL: 3 flow. * Coronary angiography shows right dominance. Conclusions 1. There is moderate mid to distal LAD stenosis. Recommendations * Continue current medical management and risk factor modification. Transthoracic echocardiogram 11 June 2020 CONCLUSIONS 1-Normal left ventricular cavity size. Normal left ventricular systolic function. No regional wall motion abnormalities. Left ventricular ejection fraction is estimated at 55 %. Grade I/IV diastolic dysfunction (abnormal relaxation filling pattern), normal to mildly elevated filling pressures. 2-Moderately thickened mitral valve. Moderate mitral annular calcification. No mitral valve stenosis. Trace mitral valve regurgitation. 3-Structurally normal aortic valve without significant sclerosis or stenosis. There is no aortic regurgitation. 4-Thickened tricuspid valve. Mild tricuspid valve regurgitation. 5-There is no pericardial effusion. 6-Right atrial pressure is around 5 mm of mercury. 7-There are no prior echocardiogram studies to compare. A&P Assessment and plan (1) NSTEMI (non-ST elevated myocardial infarction): Patient had presented with NSTEMI and pancytopenia. Underwent coronary angiography that showed moderate mid to distal LAD stenosis, no severe disease. Medical management for now. 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 Status: Acute (2) HTN (hypertension): Blood pressures uncontrolled -Transition to Coreg 25 mg twice daily. Stopped metoprolol -Continue Amlodipine. Patient continues to have headaches with Imdur. -Increased hydralazine to 50 mg 3 times daily tomorrow morning and stop Imdur -consider adding aldactone later today if BP uncontrolled Status: Inactive Qualifiers: Hypertension type: essential hypertension Qualified Code(s): I10 - Essential (primary) hypertension (3) KATERINA (acute kidney injury): Resolved. Follow-up BMP in a.m. Status: Acute (4) Pancytopenia: Secondary to AML, pending start of treatment. With history of SLE. Status: Acute (5) QT prolongation: Normalized on repeat EKG. Status: Acute (6) Renal mass: Status: Acute (7) AML (acute myeloblastic leukemia): Recent diagnosis. Pending arrangements for chemotherapy with hematology to start at soonest available appointment. Status: Acute Additional A&P Information Dyslipidemia Diabetes mellitus type 2 Abnormal liver enzymes Hypokalemia: Replaced SLE Thank you for allowing me to participate in patient's care. Please feel free to call with questions or concerns Attestations Medical Necessity Statement*: As per primary team Time Spent in Patient Care: 16 - 35 minutes (>than 50% of time spent in counselling and/or direct pt care on unit). Coding Level of Care Code Acute Rail Layer for [facility] Fwd Diagnoses NSTEMI (non-ST elevated myocardial infarction) I21.4 HTN (hypertension) I10 Hypertension type: essential hypertension KATERINA (acute kidney injury) N17.9 Pancytopenia D61.818 QT prolongation R94.31 Renal mass N28.89 AML (acute myeloblastic leukemia) C92.00
[2020-06-15] MEDS: potassium chloride ER 20 mEq Tablet 40 MEQ PO (09:12)
[2020-06-15] MEDS: carvedilol 25 mg Tablet PO ×2 (09:13→17:55)
[2020-06-15] MEDS: pantoprazole DR 40 mg Tablet PO (09:13)
[2020-06-15] MEDS: hyDRALAzine 25 mg Tablet 50 MG PO ×3 (09:13→20:55)
[2020-06-15] MEDS: acyclovir 400 mg Tablet PO ×3 (09:13→20:55)
[2020-06-15] MEDS: amlodipine 10 mg Tablet PO (09:13)
[2020-06-15] MEDS: lidocaine 1% 5 ML in potassium chloride premix 100 ML 25 ML IV (09:19)
--- NOTE | 2020-06-15 13:33 | PC.NURSE ---
IV Potassium completed at this time. Unhooked from pump and IV flushed with normal saline at this time.
[2020-06-15] MEDS: cefTRIAXone 1,000 MG in sodium chloride 0.9% (plus) 50 ML 100 MG IV (14:49)
[2020-06-15] MEDS: HYDROcodone-acetaminophen 5-325 mg Tablet 2 TAB PO ×2 (14:53→20:55)
--- NOTE | 2020-06-15 15:12 | DCPLANNER ---
Pg 2 of IM updated and reviewed with pt and Son, no questions, copy provided.
--- NOTE | 2020-06-15 15:28 | PM.PN ---
Subjective Subjective: Interval history: She is feeling generally weak. Tired. Has not been able to sleep well. Has been having nausea and poor appetite. Is visited by her son. Vitals/I&O/Wt Last Vital Signs Temp 98.6 F 06/15/20 10:58 Pulse 89 06/15/20 14:00 Resp 15 06/15/20 10:58 BP 149/75 06/15/20 10:58 Pulse Ox 94 06/15/20 07:17 06/15/20 06/15/20 06/15/20 06:59 14:59 22:59 Intake Total 333 / 1303 125 / 125 Balance 333 / 932 125 / 125 Weight last 48 hrs Weight 94.075 kg Weight 97.477 kg Physical Exam Const: COMMON NORMALS: no acute distress, patient oriented x3 and alert GENERAL APPEARANCE: cooperative ORIENTATION/CONSCIOUSNESS: Yes awake OTHER: Malaise HENMT: COMMON NORMALS: oropharynx normal Neck/C-Spine: COMMON NORMALS: no JVD Resp: COMMON NORMALS: normal respiratory effort and clear to auscultation bilaterally AUSCULTATION: clear to auscultation bilaterally Cardio: COMMON NORMALS: no JVD, regular rhythm, S1 normal heart sound present, S2 normal heart sound present and No murmurs present (Cardio) RHYTHM: regular rhythm HEART SOUNDS: S1 normal heart sound present and S2 normal heart sound present GI: COMMON NORMALS: Normal to inspection, nondistended, normoactive bowel sounds present, Soft to palpation and non-tender PALPATION: Yes Soft to palpation Extremity: COMMON NORMALS: no joint enlargement and no pedal edema Neuro: COMMON NORMALS: patient oriented x3 and moves all extremities SENSORIUM/ORIENTATION: Yes alert Skin: COMMON NORMALS: no rashes or lesions noted GENERAL SKIN EXAM: no rashes or lesions noted LESIONS: lesion noted (minimal sore/excoriation on lower L lip, better) Data : 06/15/20 05:12 06/15/20 05:12 A&P Assessment and plan (1) Pancytopenia: She is having persistent malaise, nausea, poor appetite. Nausea despite Reglan. Discussed with her and her son, would rather avoid Compazine, Phenergan which may be too high risk of adverse effects. She did tolerate Zofran overnight, will if she will agree with increased dose to 8 mg, continue Reglan as needed. Would rather not start appetite stimulant just yet due to risk of adverse effects. Pending arrangements for treatment of AML. For now staying in the hospital due to persistent malaise, generalized weakness. Please confirm with oncology clinic/Dr. Gallego when available tomorrow whether prehydration before therapy is needed which can be accomplished before she goes. Also please confirm regarding IV access since she has an IV, but it is small, and may not be robust enough to maintain for treatment. Would touch base with oncology to see if more durable access should be obtained prior to discharge. Discussed with her and her son, we will go ahead and transfuse additional 1 unit leukodistorted PRBC. 1 unit of leukoreduced irradiated platelets. Secondary to AML, pending start of treatment. With history of SLE. Trace schistocytes noted on differential. Maintain reverse isolation. Status: Acute (2) HTN (hypertension): Blood pressures are improving with coreg twice daily per cardiology recommendations, hydralazine dose increased. Imdur discontinued in case contributing to headache. Continue amlodipine. Cardiac diet. Increased pain medication dose to 2 tablets hydrocodone as needed as pain appears to play a big role. Losartan has been on hold due to acute kidney injury. Status: Inactive Qualifiers: Hypertension type: essential hypertension Qualified Code(s): I10 - Essential (primary) hypertension (3) UTI (urinary tract infection): Not particularly suggestive UA, urine culture did end up growing 60-70,000 E. coli, and if malaise is a symptom may be a true UTI. May be partially treated UTI, since son states she had recently completed a course of antibiotic. Added Rocephin. Status: Acute (4) Renal mass: Incidentally noted on US R kidney, 1.4 x 1.8 by [address] not diagnostic. Discussed with her oncologist. KATERINA improved. Will request re-evaluation CT abdomen pelvis with contrast for tomorrow. Status: Acute (5) NSTEMI (non-ST elevated myocardial infarction): Underwent diagnostic coronary angiography, with noted 40% stenosis LAD. No stentable lesions. For now discontinue aspirin as well. Long-term would benefit from aspirin, however, may be safer once counts stabilize. V/Q with low probability for PE. Status: Acute (6) KATERINA (acute kidney injury): Resolving. Baseline appears to be 1 or below. Unclear cause of this. Does take losartan at home. We will hold this medication. No hydronephrosis. Noted possible solid mass in the right kidney. Prerenal urine studies. Status: Acute (7) AML (acute myeloblastic leukemia): Recent diagnosis. Pending arrangements for chemotherapy with hematology to start at soonest available appointment. Please inquire regarding date and time, and any necessary prearrangements. Status: Acute (8) Herpes labialis: Acyclovir. Status: Acute (9) Elevated d-dimer: Low probability PE on VQ. Negative duplex. Anticoagulation discontinued. Status: Acute (10) QT prolongation: Status: Acute Additional A&P Information Vomiting, loose stool: Resolved. No sample to collect. Minimal AST elevation: Minimal rise. No abdo pain. CK normal. Reassess. Status post cholecystectomy. No mass or bile duct dilation on noncontrast CT. Hypokalemia: replaced. SLE HTN HLD DM2 Anxiety/depression Attestations Medical Necessity Statement*: Continue admission for preparations for treatment of AML, with pancytopenia, poor oral intake, persistent nausea, optimization of control of resistant hypertension, treatment of UTI, assessment of renal mass, preparations for initiation of chemotherapy. Coding Level of Care Code Acute Network Design Architect for [facility] Fwd Diagnoses Pancytopenia D61.818 HTN (hypertension) I10 Hypertension type: essential hypertension UTI (urinary tract infection) N39.0 Renal mass N28.89 NSTEMI (non-ST elevated myocardial infarction) I21.4 KATERINA (acute kidney injury) N17.9 AML (acute myeloblastic leukemia) C92.00 Herpes labialis B00.1 Elevated d-dimer R79.89 QT prolongation R94.31
[2020-06-15] MEDS: ALPRAZolam 0.25 mg Tablet PO (16:23)
[2020-06-15] MEDS: atorvastatin 40 mg Tablet PO (20:56)
--- NOTE | 2020-06-15 21:49 | PC.NURSE ---
PT IS RESTING IN BED. PT C/O 10/10 PAIN. PRN NORCO WAS GIVEN. WILL CONTINUE TO MONITOR.
[2020-06-16] VITALS (10 sets, daily range): BP systolic 100–165; BP diastolic 45–74; PULSE 68–129; RESP 16–22; TEMP 36.6–37.9; O2SAT 91–95
[2020-06-16 05:50] LABS: Hematocrit 24.7 % (37.0-47.0); Hemoglobin 8.2 g/dL (11.5-15.3); Mean Corpuscular HGB Conc 33.2 g/dL (30.0-36.0); Mean Corpuscular Hemoglobin 29.6 pg (28.0-34.0); Mean Corpuscular Volume 89.2 fL (81-99); Red Blood Count 2.77 10^6/uL (4.1-5.3); Red Cell Distribution Width 17.7 % (12.1-15.1)
[2020-06-16 06:08] LABS: Alanine Aminotransferase 22 U/L (0-33); Albumin Level 3.5 g/dL (3.5-5.2); Alkaline Phosphatase 130 IU/L (35-105); Anion Gap 17.5 (5-19); Aspartate Amino Transferase 43 U/L (0-32); Blood Urea Nitrogen 13 mg/dL (8-23); Calcium 7.9 mg/dL (8.5-10.5); Carbon Dioxide 22 mmol/L (22-29); Chloride 98 mmol/L (98-107); Globulin 3.1 g/dL (1.3-4.6); Glucose 91 mg/dL (65-115); Osmolality Calculated 278 mOsm/kg (285-295); Potassium 3.5 mmol/L (3.5-5.1); Sodium 134 mmol/L (136-145); Total Bilirubin 0.7 mg/dL (0.15-1.2); Total Protein 6.6 g/dL (6.6-8.7)
[2020-06-16 06:25] LABS: Slide Review Slide Review Perform
[2020-06-16 06:26] LABS: Eosinophils 0 %; Lymphocytes 38 %; Monocytes Absolute 3.4 10^3/cmm (0.1-0.6); Platelet Estimate Decreased (Normal); Segmented Neutrophils 0 %; Total Cells Counted 100 (0-100)
[2020-06-16 06:28] LABS: Platelet Count 20 10^3/cmm (130-400); White Blood Count 38.2 10^3/uL (4.0-10.0)
[2020-06-16 06:29] LABS: Anisocytosis 2+; Blastocytes 22 % (0-0); Poikilocytosis 1+; Schistocytes 1+
--- NOTE | 2020-06-16 06:38 | PC.NURSE ---
DR NOTIFIED OF CRITICAL LABS.
--- NOTE | 2020-06-16 08:00 | CT_ITS ---
WS: [id number] CT ABDOMEN PELVIS TECHNIQUE: Contrast-enhanced CT of the abdomen and pelvis with coronal and sagittal reformatted image s. CLINICAL INFORMATION: renal mass? COMPARISON: CT June 11, 2020 DLP: 3371.[address] scans at [facility] use at least one of these dose optimization techniques: automat ed exposure control; mA and/or kV adjustment per patient size (includes targeted exams where dose is matched to clinical indication); or iterative reconstruction. FINDINGS: Prior postoperative changes cholecystectomy and hysterectomy. Prior gastric bypass. Hazy groundglass infiltrates in the lung bases progressed from previous. Recommend correlation for COVID19 pneumonia. Normal bilateral renal parenchymal enhancement. Small right renal low-attenuation lesions. 9 mm low-a ttenuation upper pole lesion laterally corresponding to the previous ultrasound findings. This most l ikely represents a complex cyst. Recommend interval follow-up with ultrasound or CT in 6 months. Normal liver. Normal portal vein and splenic vein. Adrenal glands are normal. Normal spleen. Mild fat ty atrophy of the pancreas. Normal caliber abdominal aorta. Aortic calcification. Mild diffuse body w all anasarca. 2.8 x 2.8 cm low-attenuation collection adjacent to the cecum and abutting the appendec briana clips may represent incidental postoperative seroma. This is unchanged since June 11, 2020. Adrenal glands are normal. Normal ureteral excretion. CT/CT abdomen pelvis w con* [id number] IMPRESSION: 1. Small low-attenuation peripherally enhancing lesion upper pole right kidney likely represents complex cyst but difficult to characterize due to size. This corresponds to the ultrasound findings. Recommend 6 month follow-up with ultra sound or contrast-enhanced CT. 2. Additional low-attenuation lesion upper pole right kidney measuring 6 mm co nsistent with a small cyst. 3. Prior cholecystectomy. 4. Mild diffuse body wall anasarca. 5. Gastric bypass. 6. Progressed groundglass infiltrates in the lung bases. Recommend correlation for COVID19 pneumonia. 7. Low-attenuation collection adjacent to the appendectomy site measuring 2.8 x 2.8 cm nonspecific but may represent postoperative seroma. This is unchanged.
[2020-06-16] MEDS: hyDRALAzine 25 mg Tablet 50 MG PO ×2 (08:45→16:24)
[2020-06-16] MEDS: amlodipine 10 mg Tablet PO (08:45)
[2020-06-16] MEDS: acyclovir 400 mg Tablet PO ×3 (08:45→20:30)
[2020-06-16] MEDS: fluoxetine 20 mg Capsule 40 MG PO (08:46)
[2020-06-16] MEDS: pantoprazole DR 40 mg Tablet PO (08:46)
[2020-06-16] MEDS: carvedilol 25 mg Tablet PO ×2 (08:46→18:07)
[2020-06-16] MEDS: metoclopramide 5 mg/mL SDV 2 mL IVP (08:47)
[2020-06-16] MEDS: gabapentin 300 mg Capsule PO ×3 (08:47→18:07)
[2020-06-16] MEDS: iohexol 300 mg/mL 100 mL Btl IV (09:19)
[2020-06-16] MEDS: ondansetron 2 mg/ML SDV 2 mL 8 MG IVP (12:39)
[2020-06-16] MEDS: sodium chloride 0.9% 1,000 ML 100 ML IV ×2 (12:40→20:33)
[2020-06-16] MEDS: ALPRAZolam 0.25 mg Tablet PO (14:16)
[2020-06-16] MEDS: HYDROcodone-acetaminophen 5-325 mg Tablet 2 TAB PO ×2 (14:16→20:30)
[2020-06-16] MEDS: cefTRIAXone 1,000 MG in sodium chloride 0.9% (plus) 50 ML 100 MG IV (14:17)
--- NOTE | 2020-06-16 14:49 | P.PN_ITS ---
Subjective Subjective: Interval history: This is a late entry. Patient was seen yesterday afternoon. The anticipation was that she would be discharged. However patient was suffering from severe nausea and vomiting. States she felt very weak. Reglan is not helping her nausea. Medications: Reviewed: Yes Vitals/I&O/Wt Last Vital Signs Temp 99.6 F 06/17/20 07:11 Pulse 91 06/17/20 07:11 Resp 16 06/17/20 07:11 BP 137/69 06/17/20 07:11 Pulse Ox 95 06/17/20 07:11 06/16/20 06/17/20 06/17/20 22:59 06:59 14:59 Intake Total 1078.333 / 2608.333 500 / 3108.333 Balance 1078.333 / 2608.333 500 / 3108.333 Weight last 48 hrs Weight 96.661 kg Weight 96.751 kg Physical Exam Const: GENERAL APPEARANCE: in distress, lethargic and ill appearing ORIENTATION/CONSCIOUSNESS: Yes awake, Yes oriented to person, Yes oriented to place, Yes oriented to time and Yes lethargic Neck/C-Spine: COMMON NORMALS: no JVD Resp: COMMON NORMALS: normal respiratory effort AUSCULTATION: diminished lung sounds Cardio: COMMON NORMALS: no JVD, regular rate, regular rhythm, S1 normal heart sound present and S2 normal heart sound present RATE: regular rate RHYTHM: regular rhythm HEART SOUNDS: S1 normal heart sound present and S2 normal heart sound present GI: COMMON NORMALS: Soft to palpation AUSCULTATION: Yes Hyperactive bowel sounds present PALPATION: Yes Soft to palpation and Yes Tenderness to palpation present (GI) (Throughout but mostly in the epigastrium) Extremity: COMMON NORMALS: no calf tenderness and no pedal edema Neuro: SENSORIUM/ORIENTATION: Yes oriented to person, Yes oriented to place, Yes oriented to time and Yes lethargic Data : 06/16/20 03:39 06/16/20 03:39 A&P Assessment and plan (1) AML (acute myeloblastic leukemia): Discussed with Dr. Gallego. The chemotherapy treatment must be initiated as an outpatient. He is unable to obtain the medication until she is physically discharged. By him upon discharge. Status: Acute (2) NSTEMI (non-ST elevated myocardial infarction): Heart catheterization reveals nonsignificant stenosis without necessity for stent placement. Treat medically. Status: Acute (3) Nausea & vomiting: Discussed with patient and RN to use Zofran over Reglan. Zofran does give her relief. There is a sublingual tab that we can send her home with. Status: Acute Additional A&P Information Discussion with RN and patient regarding discharge plans. Patient feels weak and with all the nausea feels unable to go home. I explained that her weakness fatigue and nausea are likely all due to her AML. Unfortunately treatment of the AML is what eventually will help the this condition. However she does not feel up to treatment. The plan is to use Zofran initiate eating more. We changed her diet to a soft diet. Hopefully with her 's help she can return home to have chemotherapy. Attestations Medical Necessity Statement*: Patient with severe nausea and vomiting unable to tolerate diet. Coding Level of Care Code Acute Foil Stamp Operator for Jaymie Soriano Diagnoses AML (acute myeloblastic leukemia) C92.00 NSTEMI (non-ST elevated myocardial infarction) I21.4 Nausea & vomiting R11.2
[2020-06-16] MEDS: atorvastatin 40 mg Tablet PO (20:30)
--- NOTE | 2020-06-16 20:30 | PC.NURSE ---
Dr. Epstein notified of blood pressure of 111/55. Ordered to hold 50 of Hydralzine.
[2020-06-17] VITALS (8 sets, daily range): BP systolic 120–162; BP diastolic 49–69; PULSE 70–91; RESP 16–35; TEMP 36.8–37.6; O2SAT 90–95
--- NOTE | 2020-06-17 02:16 | PC.NURSE ---
At 2300, patient placed on 1 L NC due to oxygen saturation of 88-89 percent. Patient is currently sating 94 percent. Patient is drowsy, but easily arousable and oriented x3.
--- NOTE | 2020-06-17 02:17 | PC.NURSE ---
Patient has been educated not to get up without assistance. She has been oriented to her call light and has it within reach. Will monitor.
--- NOTE | 2020-06-17 04:01 | PC.NURSE ---
Patient was able to get up to bedside commode with 2 assist. Patient had some difficulty urinating and dribbled, patient's brief was wet with urine and was changed.
[2020-06-17] MEDS: fluoxetine 20 mg Capsule 40 MG PO (08:11)
[2020-06-17] MEDS: amlodipine 10 mg Tablet PO (08:11)
[2020-06-17] MEDS: gabapentin 300 mg Capsule PO ×3 (08:12→18:07)
[2020-06-17] MEDS: pantoprazole DR 40 mg Tablet PO (08:12)
[2020-06-17] MEDS: hyDRALAzine 25 mg Tablet 50 MG PO ×3 (08:12→20:12)
[2020-06-17] MEDS: carvedilol 25 mg Tablet PO ×2 (08:13→18:07)
[2020-06-17] MEDS: HYDROcodone-acetaminophen 5-325 mg Tablet 2 TAB PO (08:25)
[2020-06-17] MEDS: sodium chloride 0.9% 1,000 ML 100 ML IV ×2 (08:29→18:07)
[2020-06-17 10:30] LABS: Magnesium 1.3 mg/dL (1.7-2.3)
--- NOTE | 2020-06-17 10:52 | DCPLANNER ---
IMM completed on 06/17/20 @ 9517. Copy of rights given to pt.
[2020-06-17] MEDS: acyclovir 400 mg Tablet PO ×3 (11:17→20:12)
[2020-06-17] MEDS: cefTRIAXone 1,000 MG in sodium chloride 0.9% (plus) 50 ML 100 MG IV (14:48)
[2020-06-17] MEDS: ALPRAZolam 0.25 mg Tablet PO (15:26)
--- NOTE | 2020-06-17 15:34 | P.PN_ITS ---
Subjective Subjective: Interval history: Feeling much better on am rounds. She was able to eat. Zofran is more effective than Reglan. Less nausea, no vomiting. Repeat visit at 2:30 pm with son. Questions regarding CT scan and discharge. We discussed pros/cons of chemotherapy vs comfort treatments and they are discussing. He did ask for hospice information. Medications: Reviewed: Yes Vitals/I&O/Wt Last Vital Signs Temp 98.2 F 06/17/20 11:05 Pulse 72 06/17/20 14:00 Resp 19 H 06/17/20 11:05 BP 120/49 06/17/20 11:05 Pulse Ox 93 06/17/20 11:05 06/17/20 06/17/20 06/17/20 06:59 14:59 22:59 Intake Total 500 / 3108.333 1240 / 1240 50 / 1290 Balance 500 / 3108.333 1240 / 1240 50 / 1290 Weight last 48 hrs Weight 96.661 kg Weight 96.751 kg Physical Exam Const: COMMON NORMALS: no acute distress GENERAL APPEARANCE: cooperative NUTRITIONAL APPEARANCE: overweight ORIENTATION/CONSCIOUSNESS: Yes awake, Yes oriented to person, Yes oriented to place and Yes oriented to time Neck/C-Spine: COMMON NORMALS: no JVD Resp: COMMON NORMALS: normal respiratory effort and clear to auscultation bilaterally AUSCULTATION: clear to auscultation bilaterally Cardio: COMMON NORMALS: no JVD, regular rate, regular rhythm, S1 normal heart sound present and S2 normal heart sound present RATE: regular rate RHYTHM: regular rhythm HEART SOUNDS: S1 normal heart sound present and S2 normal heart sound present GI: COMMON NORMALS: Soft to palpation, non-tender, No hepatosplenomegaly present and no masses PALPATION: Yes Soft to palpation and Yes No hepatosplenomegaly present Extremity: COMMON NORMALS: no clubbing, cyanosis or edema, no calf tenderness and no pedal edema Neuro: SENSORIUM/ORIENTATION: Yes oriented to person, Yes oriented to place and Yes oriented to time Data : 06/16/20 03:39 06/16/20 03:39 A&P Assessment and plan (1) Nausea & vomiting: No further vomiting. Will schedule zofran before meals and prn. continue fluids for now. Status: Acute (2) Renal mass: CT scan with contrast reports out as complex cysts. Pt and son updated. Not associated with AML. No need for follow up given the seriousness of her current condition. Status: Acute (3) AML (acute myeloblastic leukemia): Long talk wtih Dr. Gallego and then with pt and son. In order to receive oral chemo med, pt is required to be discharged, but pt weak and fragile. She is not certain she wants chemo. Son is inquiring about hospice. CM notified. Anticipate discharge plan by tomorrow. Status: Acute (4) Hypokalemia: replaced. I checked Mg and it was very low. See below Status: Acute (5) Hypomagnesemia: will replace via IV this pm. Status: Acute Attestations Medical Necessity Statement*: Pt requires reverse isolation and is not safe to discharge without decision made as to pursue aggressive treatment or change to comfort as priority. Need to aggressively and quickly treat electrolyte def iciencies. Coding Level of Care Code Acute Plasma Center Technician for Jaymie Soriano Diagnoses Nausea & vomiting R11.2 Renal mass N28.89 AML (acute myeloblastic leukemia) C92.00 Hypokalemia E87.6 Hypomagnesemia E83.42
[2020-06-17] MEDS: magnesium sulfate premix 4 GM/100 ML PREMIX IV (16:57)
[2020-06-17] MEDS: temazepam 15 mg Capsule PO (20:11)
[2020-06-17] MEDS: atorvastatin 40 mg Tablet PO (20:12)
--- NOTE | 2020-06-17 21:03 | PC.NURSE ---
NURSE NOTE: ASSUMPTION OF CARE; ASSUMED CARE OF PATIENT AT 1900 TODAY. PT ALERT AND ORIENTED X4; VERY SLOW TO RESPOND D/T WEAKNESS. DOES ANSWER QUESTIONS CORRECTLY. ALL VS AND ASSESSMENTS CHARTED. DENIES NEEDS OR PAIN AT THIS TIME. WILL CONTINUE TO MONITOR.
[2020-06-18] VITALS (7 sets, daily range): BP systolic 128–167; BP diastolic 46–61; PULSE 66–81; RESP 22–30; TEMP 36.8; O2SAT 93–95
[2020-06-18] MEDS: sodium chloride 0.9% 1,000 ML 100 ML IV (08:04)
[2020-06-18] MEDS: hyDRALAzine 25 mg Tablet 50 MG PO ×2 (08:08→13:52)
[2020-06-18] MEDS: fluoxetine 20 mg Capsule 40 MG PO (08:08)
[2020-06-18] MEDS: amlodipine 10 mg Tablet PO (08:09)
[2020-06-18] MEDS: potassium chloride ER 20 mEq Tablet 40 MEQ PO (08:09)
[2020-06-18] MEDS: carvedilol 25 mg Tablet PO (08:09)
[2020-06-18] MEDS: acyclovir 400 mg Tablet PO ×2 (08:09→13:52)
[2020-06-18] MEDS: gabapentin 300 mg Capsule PO ×2 (10:36→13:52)
[2020-06-18] MEDS: dexamethasone 4 mg/mL INJ 10 MG IVP (10:37)
[2020-06-18] MEDS: pantoprazole DR 40 mg Tablet PO (10:37)
[2020-06-18] MEDS: ondansetron 2 mg/ML SDV 2 mL 4 MG PO (10:39)
[2020-06-18] MEDS: chlorPROMazine 25 mg Tablet PO (10:50)
--- NOTE | 2020-06-18 10:53 | P.DS_ITS ---
Discharge Providers Date of Admission: 06/10/20 17:02 Date of Discharge: June 18, 2020 Attending Provider at Admission: Dutch Keenan Attending Provider at Discharge: Sage Hubbard DO Diagnoses at Discharge Discharge Diagnosis (1) Nausea & vomiting: Status: Chronic (2) Renal mass: Status: Acute Permanent problem details: complex cysts times 2 on right kidney (3) AML (acute myeloblastic leukemia): Status: Acute (4) Hypokalemia: Status: Resolved (5) Hypomagnesemia: Status: Resolved (6) Migraine: Status: Acute Reason for Visit Reason for Visit: DIFF BREATHING Hospital Course Hospital Course Patient with recently diagnosed AML was in the process of arranging treatment with Dr. Gallego when it was decided she needed a blood transfusion. She came to ER because of associated left-sided chest pain. In the emergency room they diagnosed her with pancytopenia with neutropenia . In the ED she was diagnosed with non-ST segment elevation [place] and cardiology saw her and completed a left heart catheterization which found nonocclusive coronary artery disease no stents were placed. Patient received platelets and blood transfusions while she was here patient had persistent malaise nausea and poor appetite she was prescribed Reglan with no effect. Eventually she received Zofran with good response. Patient was treated as having a UTI however I believe. R renal mass on the right kidney was valuated with CT with contrast that showed the cyst being complex cyst. PE was ruled out and discussions occurred regarding timing of chemotherapy treatment. Unfortunately in order to receive chemotherapy patient would need to be discharged and she was feeling so poorly. Eventually I spoke with patient and son regarding options for treatment for aggressive chemotherapy and versus comfort measures. The patient and son opted for comfort measures and hospice was consulted she will be discharged home with hospice her life expectancy without treatment is 1 to 2 months however the patient has no neutrophils and we suspect her prognosis is even shorter. Patient and son are aware. Physical Exam Const: COMMON NORMALS: no acute distress GENERAL APPEARANCE: cooperative, in distress, lethargic and ill appearing NUTRITIONAL APPEARANCE: overweight ORIENTATION/CONSCIOUSNESS: Yes awake, Yes oriented to person, Yes oriented to place, Yes oriented to time and Yes lethargic Neck/C-Spine: COMMON NORMALS: no JVD Resp: COMMON NORMALS: normal respiratory effort and clear to auscultation bilaterally AUSCULTATION: clear to auscultation bilaterally and diminished lung sounds Cardio: COMMON NORMALS: no JVD, regular rate, regular rhythm, S1 normal heart sound present and S2 normal heart sound present RATE: regular rate RHYTHM: regular rhythm HEART SOUNDS: S1 normal heart sound present and S2 normal heart sound present GI: COMMON NORMALS: Soft to palpation, non-tender, No hepatosplenomegaly present and no masses AUSCULTATION: Yes Hyperactive bowel sounds present PALPATION: Yes Soft to palpation, Yes Tenderness to palpation present (GI) (Throughout but mostly in the epigastrium) and Yes No hepatosplenomegaly present Extremity: COMMON NORMALS: no clubbing, cyanosis or edema, no calf tenderness and no pedal edema Neuro: SENSORIUM/ORIENTATION: Yes oriented to person, Yes oriented to place, Yes oriented to time and Yes lethargic Discharge Data Data Completed and Pending: Completed Studies During Hospitalization Category Date Time Status CT abdomen pelvis w con* [id number] Rout ine Cat Scan 06/16/20 08:[address] kidney stone 7 [id number] Routine Cat Scan 06/11/20 11:09 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 Routin e Exams 06/12/20 15:00 Completed XR chest 1V wilfrid ble [id number] Urgent Exams 06/10/20 14:52 Completed NM pul vent and p erfus* [id number] Routi ne Nuc Med 06/11/20 21:34 Completed CV echo complete* [id number] Routine Ultrasound 06/11/20 07:00 [place] [id number] Routin e Ultrasound 06/11/20 07:00 Completed US renal BI* [id number] Routine Ultrasound 06/11/20 07:00 Completed Pending at discharge Category Date Time Status ABO/Rh Type Routi ne Lab 06/10/20 15:28 Results Basic Metabolic P sheba Routine Lab 06/18/20 07:58 Ordered Complete Crossmat ch Routine Lab 06/10/20 15:28 Results Irradiated Leuko Red RBC Stat Lab 06/10/20 15:28 Results Magnesium Routine Lab 06/18/20 07:58 Ordered Miscellaneous Erinn t Routine Lab 06/11/20 04:38 Received Platelets Leukore duced Irradia Stat Lab 06/10/20 15:28 Results Type and Screen R outine Lab 06/10/20 15:28 Results Vitals: Last Vital Signs Temp 98.2 F 06/18/20 07:08 Pulse 74 06/18/20 07:08 Resp 30 H 06/18/20 07:08 BP 153/52 06/18/20 07:08 Pulse Ox 94 06/18/20 07:08 Discharge Plan Discharge Patient Disposition: Home Condition: Serious Prescriptions: New amlodipine 10 mg Tablet 10 mg PO DAILY Qty: 30 RF: 0 acyclovir 400 mg Tablet 400 mg PO TID Qty: 90 RF: 0 hydralazine 25 mg Tablet 50 mg PO TID Qty: 90 RF: 0 carvedilol 25 mg Tablet 25 mg PO BID Qty: 60 RF: 0 ondansetron HCl (PF) 4 mg/2 mL Solution 4 mg PO AC Qty: 100 RF: 0 Continued betamethasone acet,sod phos [Celestone Soluspan] 6 mg/mL suspension 6 mg intra-articular ONCE Qty: 1 RF: 0 bupivacaine (PF) 0.5 % (5 mg/mL) solution 10 mg intra-articular ONCE Qty: 2 RF: 0 lidocaine (PF) 10 mg/mL (1 %) solution 20 mg intra-articular ONCE Qty: 2 RF: 0 hydrocodone-acetaminophen [[place]] 5-325 mg tablet 1 tab PO Q4H PRN (Reason: pain) 7 Days Qty: 30 RF: 0 losartan 50 mg Tablet 100 mg PO DAILY@1000 RF: 0 isosorbide mononitrate 60 mg Tablet Extended Release 24 Hr 60 mg PO DAILY@1000 RF: 0 pantoprazole 40 mg Tablet,Delayed Release (Dr/Ec) 40 mg PO DAILY@1000 RF: 0 gabapentin 300 mg Capsule 300 mg PO TID@10,14,19 RF: 0 fluoxetine 20 mg Capsule 40 mg PO DAILY RF: 0 cyclobenzaprine 10 mg Tablet 10 mg PO BID PRN (Reason: muscle spasms) RF: 0 metformin 500 mg Tablet 500 mg PO BID@1000,1900 RF: 0 tramadol 50 mg Tablet 50 mg PO BID PRN (Reason: Pain) RF: 0 diltiazem HCl 120 mg Tablet 240 mg PO DAILY@1900 RF: 0 lorazepam 1 mg Tablet 1 mg PO DAILY PRN (Reason: unknown) RF: 0 Discharge Orders: Discharge Order (Routine); Ordered 06/18/20 Ordered By: Sage Hubbard Discharge Diet: Advance as tolerated Discharge Activity: Increase activity as tolerated Patient Instructions: Left Heart Catheterization (DC) Discharge Attestations Time Spent in Discharge Care*: greater than 30 min Quality Metrics Clinical Quality Measures During this hospital stay, did patient experience: AMI Clinical Trial Participant: No Contraindication to aspirin (AMI): Aspirin given Contraindication to statin: Other (Pt going home on hospice) Contraindication to PCI: Intervention not indicated Contraindication to Fibrinolytics: 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
--- NOTE | 2020-06-18 11:07 | PM.DCS ---
Discharge Providers Date of Admission: 06/10/20 17:02 Date of Discharge: June 18, 2020 Attending Provider at Admission: Dutch Keenan Attending Provider at Discharge: Sage Hubbard DO Diagnoses at Discharge Discharge Diagnosis (1) Nausea & vomiting: Status: Chronic (2) Renal mass: Status: Acute Permanent problem details: complex cysts times 2 on right kidney (3) AML (acute myeloblastic leukemia): Status: Acute (4) Hypokalemia: Status: Resolved (5) Hypomagnesemia: Status: Resolved (6) Migraine: Status: Acute Reason for Visit Reason for Visit: DIFF BREATHING Hospital Course Hospital Course Patient with recently diagnosed AML was in the process of arranging treatment with Dr. Gallego when it was decided she needed a blood transfusion. She came to ER because of associated left-sided chest pain. In the emergency room they diagnosed her with pancytopenia with neutropenia . In the ED she was diagnosed with non-ST segment elevation IN and cardiology saw her and completed a left heart catheterization which found nonocclusive coronary artery disease no stents were placed. Patient received platelets and blood transfusions while she was here patient had persistent malaise nausea and poor appetite she was prescribed Reglan with no effect. Eventually she received Zofran with good response. Patient was treated as having a UTI however I believe. R renal mass on the right kidney was valuated with CT with contrast that showed the cyst being complex cyst. PE was ruled out and discussions occurred regarding timing of chemotherapy treatment. Unfortunately in order to receive chemotherapy patient would need to be discharged and she was feeling so poorly. Eventually I spoke with patient and son regarding options for treatment for aggressive chemotherapy and versus comfort measures. The patient and son opted for comfort measures and hospice was consulted she will be discharged home with hospice her life expectancy without treatment is 1 to 2 months however the patient has no neutrophils and we suspect her prognosis is even shorter. Patient and son are aware. 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 Routin e Exams 06/12/20 15:00 Completed XR chest 1V wilfrid ble [id number] Urgent Exams 06/10/20 14:52 Completed NM pul vent and p erfus* [id number] Routi ne Nuc Med 06/11/20 21:34 Completed CV echo complete* [id number] Routine Ultrasound 06/11/20 07:00 [place] [id number] Routin e Ultrasound 06/11/20 07:00 Completed US renal BI* [id number] Routine Ultrasound 06/11/20 07:00 Completed Pending at discharge Category Date Time Status ABO/Rh Type Routi ne Lab 06/10/20 15:28 Results Basic Metabolic P sheba Routine Lab 06/18/20 07:58 Ordered Complete Crossmat ch Routine Lab 06/10/20 15:28 Results Irradiated Leuko Red RBC Stat Lab 06/10/20 15:28 Results Magnesium Routine Lab 06/18/20 07:58 Ordered Miscellaneous Erinn t Routine Lab 06/11/20 04:38 Received Platelets Leukore duced Irradia Stat Lab 06/10/20 15:28 Results Type and Screen R outine Lab 06/10/20 15:28 Results Vitals: Last Vital Signs Temp 98.2 F 06/18/20 07:08 Pulse 74 06/18/20 07:08 Resp 30 H 06/18/20 07:08 BP 153/52 06/18/20 07:08 Pulse Ox 94 06/18/20 07:08 Discharge Plan Discharge Patient Disposition: Home Condition: Serious Prescriptions: New amlodipine 10 mg Tablet 10 mg PO DAILY Qty: 30 RF: 0 acyclovir 400 mg Tablet 400 mg PO TID Qty: 90 RF: 0 hydralazine 25 mg Tablet 50 mg PO TID Qty: 90 RF: 0 carvedilol 25 mg Tablet 25 mg PO BID Qty: 60 RF: 0 ondansetron HCl (PF) 4 mg/2 mL Solution 4 mg PO AC Qty: 100 RF: 0 Continued betamethasone acet,sod phos [Celestone Soluspan] 6 mg/mL suspension 6 mg intra-articular ONCE Qty: 1 RF: 0 bupivacaine (PF) 0.5 % (5 mg/mL) solution 10 mg intra-articular ONCE Qty: 2 RF: 0 lidocaine (PF) 10 mg/mL (1 %) solution 20 mg intra-articular ONCE Qty: 2 RF: 0 hydrocodone-acetaminophen [[place]] 5-325 mg tablet 1 tab PO Q4H PRN (Reason: pain) 7 Days Qty: 30 RF: 0 losartan 50 mg Tablet 100 mg PO DAILY@1000 RF: 0 isosorbide mononitrate 60 mg Tablet Extended Release 24 Hr 60 mg PO DAILY@1000 RF: 0 pantoprazole 40 mg Tablet,Delayed Release (Dr/Ec) 40 mg PO DAILY@1000 RF: 0 gabapentin 300 mg Capsule 300 mg PO TID@10,14,19 RF: 0 fluoxetine 20 mg Capsule 40 mg PO DAILY RF: 0 cyclobenzaprine 10 mg Tablet 10 mg PO BID PRN (Reason: muscle spasms) RF: 0 metformin 500 mg Tablet 500 mg PO BID@1000,1900 RF: 0 tramadol 50 mg Tablet 50 mg PO BID PRN (Reason: Pain) RF: 0 diltiazem HCl 120 mg Tablet 240 mg PO DAILY@1900 RF: 0 lorazepam 1 mg Tablet 1 mg PO DAILY PRN (Reason: unknown) RF: 0 Discharge Orders: Discharge Order (Routine); Ordered 06/18/20 Ordered By: Sage Hubbard Discharge Diet: Advance as tolerated Discharge Activity: Increase activity as tolerated Patient Instructions: Left Heart Catheterization (DC) Discharge Attestations Time Spent in Discharge Care*: greater than 30 min Quality Metrics Clinical Quality Measures During this hospital stay, did patient experience: AMI Clinical Trial Participant: No Contraindication to aspirin (AMI): Aspirin given Contraindication to statin: Statin prescribed Contraindication to PCI: Intervention not indicated Contraindication to Fibrinolytics: Other (Pt had cath) Coding Level of Care Code Acute Ssrs Report Developer for Chg Fwd Diagnoses Nausea & vomiting R11.2 Renal mass N28.89 AML (acute myeloblastic leukemia) C92.00 Hypokalemia E87.6 Hypomagnesemia E83.42 Migraine G43.909
[2020-06-18 12:44] LABS: Blood Urea Nitrogen 22 mg/dL (8-23); Calcium 7.5 mg/dL (8.5-10.5); Carbon Dioxide 19 mmol/L (22-29); Chloride 99 mmol/L (98-107); Glucose 118 mg/dL (65-115); Osmolality Calculated 274 mOsm/kg (285-295); Sodium 130 mmol/L (136-145)
[2020-06-18 12:46] LABS: Anion Gap 15.8 (5-19); Potassium 3.8 mmol/L (3.5-5.1)
[2020-06-18] MEDS: ALPRAZolam 0.25 mg Tablet PO (13:59)
--- NOTE | 2020-06-18 14:34 | PC.NURSE ---
Discharge instructions given per the physician's orders. Patient verbalized understanding of teaching and did not have any further questions. IV has been removed. No further needs identified at this time.
[2020-07-18 09:23] LABS: Miscellaneous Test See Scanned Lab Rpt
== END 2020-06-18 14:47 | disposition hospice, home (50) | DRG 281 ==
LOC: ER 16:37 → ICU 19:50 → CSU 06-11 18:59
PROVIDERS: Internal Medicine; Admitting Provider Internal Medicine; Emergency Provider Family Medicine; Visit Provider Internal Medicine
DX: I21.4 Non-ST elevation (NSTEMI) myocardial infarction (principal); D61.818 Other pancytopenia; C92.00 Acute myeloblastic leukemia, not having achieved remission; N17.9 Acute kidney failure, unspecified; N39.0 Urinary tract infection, site not specified; M32.9 Systemic lupus erythematosus, unspecified; I10 Essential (primary) hypertension; E11.9 Type 2 diabetes mellitus without complications; I25.10 Atherosclerotic heart disease of native coronary artery without angina pectoris; D70.9 Neutropenia, unspecified; F41.8 Other specified anxiety disorders; I45.81 Long QT syndrome; D69.6 Thrombocytopenia, unspecified; B00.1 Herpesviral vesicular dermatitis; N28.1 Cyst of kidney, acquired; I16.0 Hypertensive urgency; B96.20 Unspecified Escherichia coli [E. coli] as the cause of diseases classified elsewhere; Z79.84 Long term (current) use of oral hypoglycemic drugs; Z79.891 Long term (current) use of opiate analgesic; E83.42 Hypomagnesemia; E87.6 Hypokalemia
CPT/HCPCS: 36415; 36416; 36430; 71045; 74176; 74177; 76770; 76857; 78014; 80048; 80053; 80500; 81001; 82550; 82570; 82962; 83735; 83880; 84300; 84484; 85007; 85014; 85018; 85025; 85049; 85378; 85384; 85730; 86850; 86900; 86920; 87077; 87086; 87186; 88184; 88185; 93005; 93306; 93454; 93970; 96374; 99285; A9540; A9567; C1769; C1887; C1894; J0133; J0360; J0696; J1100; J1644; J2060; J2250; J2270; J2405; J2765; J3010; J3475; J3480; J3490; J7030; J8499; P9037; P9040; P9058; Q0161; Q0163; Q9967